=== PATIENT | female | born 1975 | race Caucasian/White ===

== ENCOUNTER 2017-11-25 18:25 | Inpatient (IN) | payer MEDICAID ==
[2017-11-25 20:25] LABS: BASO % 0.2 % (0.0-1.0); EOS % 0.1 % (0.0-3.0); IMMATURE GRANULOCYTE % 0.5 % (0-3.0); LYMPH # 1.5 10^3/uL (1.5-4.5); LYMPH % 8.8 % (24.0-44.0); MEAN CORPUSCULAR HEMOGLOBIN 28.6 pg (27.0-33.0); MEAN CORPUSCULAR HGB CONC 33.3 g/dl (32.0-36.5); MEAN CORPUSCULAR VOLUME 85.7 fl (80.0-96.0); MONO # 0.6 10^3/uL (0.0-0.8); MONO % 3.8 % (0.0-5.0); NEUTROPHILS # 14.5 10^3/uL (1.8-7.7); NEUTROPHILS % 86.6 % (36.0-66.0); PLATELET COUNT, AUTOMATED 357 10^3/uL (150-450); RED BLOOD COUNT 5.25 10^6/uL (4.00-5.40); RED CELL DISTRIBUTION WIDTH 14.1 % (11.5-14.5); WHITE BLOOD COUNT 16.7 10^3/uL (4.0-10.0)
[2017-11-25 20:27] LABS: VENOUS BASE EXCESS -7.1 (-2.0-2.0); VENOUS HCO3 16.8 MEQ/L (23.0-27.0); VENOUS O2 SATURATION 90.9 % (60.0-80.0); VENOUS PARTIAL PRESSURE CO2 30.2 mmHg (38.0-50.0); VENOUS PARTIAL PRESSURE O2 60.4 mmHg (30.0-50.0); VENOUS PH 7.364 UNITS (7.330-7.430); VENOUS STANDARD HCO3 18.7 MEQ/L; VENOUS TOTAL CO2 17.8 MEQ/L (24.0-28.0)
[2017-11-25] MEDS: NS 1,000 ML IV (20:53)
[2017-11-25 20:56] LABS: ESTIMATED AVERAGE GLUCOSE 209 MG/DL (60-110); HEMOGLOBIN A1c 8.9 %
[2017-11-25] MEDS: oxyBUTYnin *DITROPAN XL* 5 MG TABCR PO (21:00)
[2017-11-25 21:56] LABS: VENOUS HCO3 18.5 MEQ/L (23.0-27.0); VENOUS O2 SATURATION 84.8 % (60.0-80.0); VENOUS PARTIAL PRESSURE CO2 33.8 mmHg (38.0-50.0); VENOUS PARTIAL PRESSURE O2 49.6 mmHg (30.0-50.0); VENOUS PH 7.357 UNITS (7.330-7.430); VENOUS STANDARD HCO3 19.4 MEQ/L; VENOUS TOTAL CO2 19.6 MEQ/L (24.0-28.0)
[2017-11-25 22:20] LABS: ALBUMIN 3.9 GM/DL (3.2-5.2); ALBUMIN/GLOBULIN RATIO 1.08 (1.00-1.93); ALKALINE PHOSPHATASE 127 U/L (45-117); ALT/SGPT 18 U/L (12-78); ANION GAP 16 MEQ/L (8-16); AST/SGOT 19 U/L (7-37); BILIRUBIN,DIRECT 0.1 MG/DL (0.0-0.2); BILIRUBIN,TOTAL 0.4 MG/DL (0.2-1.0); BLOOD UREA NITROGEN 38 MG/DL (7-18); CALCIUM LEVEL 8.9 MG/DL (8.5-10.1); CARBON DIOXIDE LEVEL 20 MEQ/L (21-32); CHLORIDE LEVEL 102 MEQ/L (98-107); CREATININE FOR GFR 1.28 MG/DL (0.55-1.30); GLOMERULAR FILTRATION RATE 48.7 (>58); GLUCOSE, FASTING 201 MG/DL (70-100); LIPASE 35 U/L (73-393); MAGNESIUM LEVEL 2.3 MG/DL (1.8-2.4); POTASSIUM SERUM 4.3 MEQ/L (3.5-5.1); SODIUM LEVEL 138 MEQ/L (136-145); TOTAL PROTEIN 7.5 GM/DL (6.4-8.2)
[2017-11-25 22:34] LABS: ACETONE/KETONE > 46.00 MG/DL (<2.81)
[2017-11-25 23:11] LABS: KETONE, URINE AUTO RFX 2+ mg/dL (NEGATIVE); LEUKOCYTE ESTERASE UR AUTO RFX NEGATIVE (NEGATIVE); MUCUS, URINE RFX SMALL (NEGATIVE); NITRITE, URINE AUTO RFX NEGATIVE (NEGATIVE); RBC, URINE AUTO RFX 1 /HPF (0-3); SPECIFIC GRAVITY UR AUTO RFX 1.018 (1.002-1.035); SQUAM EPITHELIAL CELL UR AURFX 3 /HPF (0-6); WBC, URINE AUTO RFX 4 /HPF (0-3)
[2017-11-25] MEDS ORDERED: PROMETHAZINE INJ 25 MG/ML VIAL (J2550) IV (23:30)
[2017-11-26] MEDS: ONDANSETRON 4 MG ORAL DISINTEGRATING TAB (Q0162 PER 1MG) PO (00:21)
[2017-11-26 00:38] LABS: BEDSIDE GLUCOSE 469 MG/DL (70-105)
[2017-11-26] MEDS ORDERED: ONDANSETRON 4MG/2ML VIAL (J2405) IV (01:45)
[2017-11-26] MEDS ORDERED: DEXTROSE 50% 50 ML SYRINGE IV (01:45)
[2017-11-26] MEDS ORDERED: NS 1,000 ML IV (01:45)
[2017-11-26] MEDS ORDERED: GLUCAGON FOR INJ 1 MG VIAL (J1610) SC (01:45)
[2017-11-26] MEDS ORDERED: GLUCOSE 4 GM CHEW TABLET PO (01:45)
[2017-11-26] MEDS ORDERED: CARISOPRODOL 350 MG TAB PO (01:45)
[2017-11-26] MEDS: HumuLIN R (REGULAR) INSULIN (NovoLIN R) **100U/ML** PER UNIT SC (02:37)
[2017-11-26] MEDS: NS 1,000 ML IV ×2 (02:45→09:21)
[2017-11-26 02:46] LABS: C REACTIVE PROTEIN QUANTITATIV 5.03 MG/DL (0.00-0.30)
[2017-11-26] MEDS: METOCLOPRAMIDE INJ 10MG/2ML VIAL (J2765) IV (03:38)
[2017-11-26 05:57] LABS: BEDSIDE GLUCOSE 408 MG/DL (70-105)
[2017-11-26] MEDS: HEPARIN SOD (PORCINE) 5000 UNITS/ML VIAL SC (06:00)
[2017-11-26] MEDS: LEVOTHYROXINE 75MCG TABLET (0.075MG) PO (06:04)
[2017-11-26] MEDS: HumaLOG INSULIN (NovoLOG) PER UNIT SC (06:05)
[2017-11-26 06:25] LABS: BASO % 0.1 % (0.0-1.0); HEMATOCRIT 43.2 % (36.0-47.0); HEMOGLOBIN 13.8 g/dl (12.0-15.5); IMMATURE GRANULOCYTE % 0.5 % (0-3.0); LYMPH # 0.9 10^3/uL (1.5-4.5); LYMPH % 4.6 % (24.0-44.0); MEAN CORPUSCULAR HEMOGLOBIN 28.5 pg (27.0-33.0); MEAN CORPUSCULAR HGB CONC 31.9 g/dl (32.0-36.5); MEAN CORPUSCULAR VOLUME 89.3 fl (80.0-96.0); MONO # 0.3 10^3/uL (0.0-0.8); MONO % 1.3 % (0.0-5.0); NEUTROPHILS # 18.8 10^3/uL (1.8-7.7); NEUTROPHILS % 93.5 % (36.0-66.0); PLATELET COUNT, AUTOMATED 347 10^3/uL (150-450); RED BLOOD COUNT 4.84 10^6/uL (4.00-5.40); RED CELL DISTRIBUTION WIDTH 14.4 % (11.5-14.5); WHITE BLOOD COUNT 20.1 10^3/uL (4.0-10.0)
[2017-11-26 06:55] LABS: LIPASE 40 U/L (73-393)
[2017-11-26 07:00] LABS: ALBUMIN 3.9 GM/DL (3.2-5.2); ALBUMIN/GLOBULIN RATIO 0.87 (1.00-1.93); ALKALINE PHOSPHATASE 140 U/L (45-117); ALT/SGPT 20 U/L (12-78); ANION GAP 20 MEQ/L (8-16); AST/SGOT 21 U/L (7-37); BILIRUBIN,TOTAL 0.4 MG/DL (0.2-1.0); BLOOD UREA NITROGEN 31 MG/DL (7-18); CALCIUM LEVEL 8.6 MG/DL (8.5-10.1); CARBON DIOXIDE LEVEL 13 MEQ/L (21-32); CHLORIDE LEVEL 101 MEQ/L (98-107); CHOLESTEROL LEVEL 185 MG/DL (<200); CHOLESTEROL RISK RATIO 5.138 (<5); CREATININE FOR GFR 1.33 MG/DL (0.55-1.30); GLOMERULAR FILTRATION RATE 46.6 (>58); GLUCOSE, FASTING 374 MG/DL (70-100); HDL CHOLESTEROL 36 MG/DL (>40); LDL CHOLESTEROL 99.2 MG/DL (<100); MAGNESIUM LEVEL 2.2 MG/DL (1.8-2.4); NON-HDL-C 149 MG/DL; POTASSIUM SERUM 4.3 MEQ/L (3.5-5.1); SODIUM LEVEL 134 MEQ/L (136-145); TOTAL PROTEIN 8.4 GM/DL (6.4-8.2); TRIGLYCERIDES LEVEL 249 MG/DL (<150)
[2017-11-26 07:01] LABS: LACTIC ACID SEPSIS PROTOCOL 1.3 MMOL/L (0.4-2.0)
[2017-11-26 07:01] LABS: CPK CREATINE PHOSPHOKINASE 127 U/L (26-192); TROPONIN I 0.16 NG/ML (< 0.10)
[2017-11-26 07:02] LABS: CK-MB VALUE MASS 3.3 NG/ML (<3.6); MB/CK RELATIVE INDEX 2.59 (< OR =4)
[2017-11-26 07:07] LABS: ACETONE/KETONE > 46.00 MG/DL (<2.81)
[2017-11-26] MEDS ORDERED: HumaLOG INSULIN (NovoLOG) PER UNIT SC ×3 (07:30→12:00)
[2017-11-26] MEDS: OMEPRAZOLE 20 MG CAP PO (08:29)
[2017-11-26] MEDS ORDERED: INSULIN HUMAN REGULAR 100 UNITS in NS 99 ML IV (08:43)
[2017-11-26] MEDS ORDERED: INSULIN IV RATE CHANGE DOCUMENTATION ML/HR XX (08:45)
[2017-11-26] MEDS ORDERED: D5W 1,000 ML IV (08:46)
[2017-11-26] MEDS ORDERED: HumuLIN R (REGULAR) INSULIN (NovoLIN R) **100U/ML** PER UNIT IV (09:00)
[2017-11-26 09:22] LABS: BEDSIDE GLUCOSE 323 MG/DL (70-105)
[2017-11-26 09:35] LABS: ABG BASE EXCESS -9.9 (-2.0-2.0); ABG HCO3 13.6 MEQ/L (22.0-26.0); ABG O2 SATURATION 98.8 % (95.0-99.0); ABG PARTIAL PRESSURE CO2 24.3 mmHg (35.0-45.0); ABG PARTIAL PRESSURE O2 140.4 mmHg (75.0-100.0); ABG STANDARD HCO3 16.6 MEQ/L (22.0-26.0); ABG TOTAL CO2 14.4 MEQ/L (22.0-29.0); ABG pH (ARTERIAL) 7.366 UNITS (7.350-7.450)
[2017-11-26 09:43] LABS: ESTIMATED AVERAGE GLUCOSE 229 MG/DL (60-110); HEMOGLOBIN A1c 9.6 %
[2017-11-26 09:45] LABS: ANION GAP 16 MEQ/L (8-16); BLOOD UREA NITROGEN 27 MG/DL (7-18); CALCIUM LEVEL 8.6 MG/DL (8.5-10.1); CARBON DIOXIDE LEVEL 17 MEQ/L (21-32); CHLORIDE LEVEL 103 MEQ/L (98-107); CREATININE FOR GFR 1.09 MG/DL (0.55-1.30); GLOMERULAR FILTRATION RATE 58.6 (>58); GLUCOSE, FASTING 309 MG/DL (70-100); PHOSPHORUS LEVEL 2.9 MG/DL (2.5-4.9); POTASSIUM SERUM 4.4 MEQ/L (3.5-5.1); SODIUM LEVEL 136 MEQ/L (136-145)
[2017-11-26] MEDS: ENOXAPARIN 40 MG/0.4 ML SYRINGE (J1650) SC (10:01)
[2017-11-26] MEDS: HumuLIN R (REGULAR) INSULIN (NovoLIN R) **100U/ML** PER UNIT IV (10:02)
[2017-11-26] MEDS: INSULIN HUMAN REGULAR 100 UNITS in NS 99 ML IV (10:03)
[2017-11-26 10:05] LABS: BEDSIDE GLUCOSE 349 MG/DL (70-105)
[2017-11-26] MEDS: INSULIN IV RATE CHANGE DOCUMENTATION ML/HR XX ×3 (11:00→13:21)
[2017-11-26 11:08] LABS: BEDSIDE GLUCOSE 294 MG/DL (70-105)
[2017-11-26 11:15] LABS: ANION GAP 17 MEQ/L (8-16); BLOOD UREA NITROGEN 25 MG/DL (7-18); CALCIUM LEVEL 8.7 MG/DL (8.5-10.1); CARBON DIOXIDE LEVEL 16 MEQ/L (21-32); CHLORIDE LEVEL 105 MEQ/L (98-107); CREATININE FOR GFR 1.11 MG/DL (0.55-1.30); GLOMERULAR FILTRATION RATE 57.4 (>58); GLUCOSE, FASTING 330 MG/DL (70-100); POTASSIUM SERUM 4.1 MEQ/L (3.5-5.1); SODIUM LEVEL 138 MEQ/L (136-145)
[2017-11-26 11:19] LABS: ANION GAP 17 MEQ/L (8-16); BLOOD UREA NITROGEN 25 MG/DL (7-18); CALCIUM LEVEL 8.5 MG/DL (8.5-10.1); CARBON DIOXIDE LEVEL 16 MEQ/L (21-32); CHLORIDE LEVEL 104 MEQ/L (98-107); CPK CREATINE PHOSPHOKINASE 114 U/L (26-192); CREATININE FOR GFR 1.13 MG/DL (0.55-1.30); GLOMERULAR FILTRATION RATE 56.2 (>58); GLUCOSE, FASTING 323 MG/DL (70-100); MB/CK RELATIVE INDEX 2.63 (< OR =4); SODIUM LEVEL 137 MEQ/L (136-145); TROPONIN I 0.16 NG/ML (< 0.10)
[2017-11-26] MEDS: ACETAMINOPHEN TAB 650MG DOSE (2X325MG) PO (12:06)
[2017-11-26 12:07] LABS: BEDSIDE GLUCOSE 302 MG/DL (70-105)
[2017-11-26 13:16] LABS: BEDSIDE GLUCOSE 264 MG/DL (70-105)
[2017-11-26 13:58] LABS: BEDSIDE GLUCOSE 251 MG/DL (70-105)
[2017-11-26 14:25] LABS: ANION GAP 13 MEQ/L (8-16); BLOOD UREA NITROGEN 19 MG/DL (7-18); CALCIUM LEVEL 8.9 MG/DL (8.5-10.1); CARBON DIOXIDE LEVEL 19 MEQ/L (21-32); CHLORIDE LEVEL 106 MEQ/L (98-107); CREATININE FOR GFR 0.99 MG/DL (0.55-1.30); GLOMERULAR FILTRATION RATE > 60.0 (>58); GLUCOSE, FASTING 256 MG/DL (70-100); POTASSIUM SERUM 4.2 MEQ/L (3.5-5.1); SODIUM LEVEL 138 MEQ/L (136-145)
[2017-11-26] MEDS ORDERED: LEVEMIR (INSULIN DETEMIR) 1 UNITS/0.01ML SC (21:00)
[2017-11-27] MEDS ORDERED: PANTOPRAZOLE 40MG INJ (PROTONIX) (C9113) IV (09:00)
[2017-11-28 15:01] LABS: BEDSIDE GLUCOSE 177 MG/DL (70-105)
== END 2017-11-26 14:39 | disposition left against medical advice (07) | DRG 420 ==
LOC: M ED INP 18:26 → M MSPAV 11-26 03:23 → M ED 18:25 → M ICU 11-26 09:00
PROVIDERS: Internal Medicine
DX: E10.10 Type 1 diabetes mellitus with ketoacidosis without coma (principal); E10.65 Type 1 diabetes mellitus with hyperglycemia; M54.5 Low back pain; E03.9 Hypothyroidism, unspecified; K21.9 Gastro-esophageal reflux disease without esophagitis; Z88.5 Allergy status to narcotic agent; Z88.0 Allergy status to penicillin; Z91.040 Latex allergy status; N39.3 Stress incontinence (female) (male)

== ENCOUNTER 2017-11-28 12:41 | Emergency (ER) | payer MEDICAID, OTHER ==
[2017-11-28 14:01] LABS: BASO % 0.4 % (0.0-1.0); EOS % 0.3 % (0.0-3.0); HEMATOCRIT 42.6 % (36.0-47.0); HEMOGLOBIN 14.2 g/dl (12.0-15.5); IMMATURE GRANULOCYTE % 0.3 % (0-3.0); LYMPH # 1.9 10^3/uL (1.5-4.5); LYMPH % 23.9 % (24.0-44.0); MEAN CORPUSCULAR HEMOGLOBIN 28.5 pg (27.0-33.0); MEAN CORPUSCULAR HGB CONC 33.3 g/dl (32.0-36.5); MEAN CORPUSCULAR VOLUME 85.4 fl (80.0-96.0); MONO # 0.4 10^3/uL (0.0-0.8); MONO % 5.4 % (0.0-5.0); NEUTROPHILS # 5.5 10^3/uL (1.8-7.7); NEUTROPHILS % 69.7 % (36.0-66.0); PLATELET COUNT, AUTOMATED 327 10^3/uL (150-450); RED BLOOD COUNT 4.99 10^6/uL (4.00-5.40); WHITE BLOOD COUNT 7.9 10^3/uL (4.0-10.0)
[2017-11-28 14:11] LABS: ETHYL ALCOHOL (ETHANOL) 0.003 % (0.000-0.010)
[2017-11-28 14:11] LABS: ANION GAP 10 MEQ/L (8-16); BLOOD UREA NITROGEN 20 MG/DL (7-18); CALCIUM LEVEL 9.7 MG/DL (8.5-10.1); CARBON DIOXIDE LEVEL 24 MEQ/L (21-32); CHLORIDE LEVEL 97 MEQ/L (98-107); CREATININE FOR GFR 1.04 MG/DL (0.55-1.30); GLOMERULAR FILTRATION RATE > 60.0 (>58); GLUCOSE, FASTING 367 MG/DL (70-100); POTASSIUM SERUM 3.7 MEQ/L (3.5-5.1); SODIUM LEVEL 131 MEQ/L (136-145)
[2017-11-28] MEDS: NS 1,000 ML IV ×2 (14:16)
[2017-11-28 14:30] LABS: VENOUS BASE EXCESS -2.9 (-2.0-2.0); VENOUS HCO3 20.2 MEQ/L (23.0-27.0); VENOUS O2 SATURATION 93.1 % (60.0-80.0); VENOUS PARTIAL PRESSURE CO2 31.1 mmHg (38.0-50.0); VENOUS PARTIAL PRESSURE O2 63.9 mmHg (30.0-50.0); VENOUS PH 7.431 UNITS (7.330-7.430); VENOUS STANDARD HCO3 21.9 MEQ/L; VENOUS TOTAL CO2 21.2 MEQ/L (24.0-28.0)
[2017-11-28 14:32] LABS: ESTIMATED AVERAGE GLUCOSE 220 MG/DL (60-110); HEMOGLOBIN A1c 9.3 %
[2017-11-28 14:49] LABS: KETONE, URINE AUTO RFX TRACE mg/dL (NEGATIVE); LEUKOCYTE ESTERASE UR AUTO RFX NEGATIVE (NEGATIVE); NITRITE, URINE AUTO RFX NEGATIVE (NEGATIVE); RBC, URINE AUTO RFX 1 /HPF (0-3); SPECIFIC GRAVITY UR AUTO RFX 1.012 (1.002-1.035); SQUAM EPITHELIAL CELL UR AURFX 2 /HPF (0-6); WBC, URINE AUTO RFX 1 /HPF (0-3)
[2017-11-28 15:02] LABS: BEDSIDE GLUCOSE 379 MG/DL (70-105)
[2017-11-28] MEDS: INSULIN HUMAN REGULAR 100 UNITS in NS 99 ML IV (15:06)
[2017-11-28] MEDS: KCL 40MEQ in NS 1000ML 1,000 ML IV (15:06)
[2017-11-28 15:12] LABS: BEDSIDE GLUCOSE 191 MG/DL (70-105)
[2017-11-28] MEDS ORDERED: INSULIN IV RATE CHANGE DOCUMENTATION ML/HR XX ×2 (15:15)
[2017-11-28 15:47] LABS: CK-MB VALUE MASS 1.4 NG/ML (<3.6); CPK CREATINE PHOSPHOKINASE 71 U/L (26-192); MB/CK RELATIVE INDEX 1.97 (< OR =4); TROPONIN I 0.04 NG/ML (< 0.10)
== END 2017-11-28 16:01 | disposition home or self-care (01) ==
LOC: M ED 12:41
DX: E11.65 Type 2 diabetes mellitus with hyperglycemia (principal); G89.29 Other chronic pain; E07.9 Disorder of thyroid, unspecified; Z72.0 Tobacco use; Z96.41 Presence of insulin pump (external) (internal); Z79.899 Other long term (current) drug therapy; Z91.040 Latex allergy status; Z88.5 Allergy status to narcotic agent; Z88.0 Allergy status to penicillin
CPT/HCPCS: 80320; G0480

== ENCOUNTER → 2018-01-30 | Outpatient (REF) | payer OTHER ==
[2018-01-31 12:45] LABS: APPEARANCE, URINE CLEAR (CLEAR); BACTERIA, URINE AUTO NEGATIVE (NEGATIVE); BILIRUBIN, URINE AUTO NEGATIVE (NEGATIVE); BLOOD, URINE BLOOD NEGATIVE (NEGATIVE); COLOR, URINE STRAW (YELLOW); GLUCOSE, URINE (UA) AUTO 1+ mg/dL (NEGATIVE); KETONE, URINE AUTO NEGATIVE (NEGATIVE); LEUKOCYTE ESTERASE, URINE AUTO NEGATIVE (NEGATIVE); MUCUS, URINE SMALL (NEGATIVE); NITRITE, URINE AUTO NEGATIVE (NEGATIVE); PROTEIN, URINE AUTO NEGATIVE (NEGATIVE); RBC, URINE AUTO 2 /HPF (0-3); SPECIFIC GRAVITY URINE AUTO 1.005 (1.002-1.035); SQUAMOUS EPITHELIAL CELL UR AU 1 /HPF (0-6); UROBILINOGEN, URINE AUTO 0.2 mg/dL (0.0-2.0); WBC, URINE AUTO 1 /HPF (0-3)
[2018-01-31 15:00] LABS: ALBUMIN 3.8 GM/DL (3.2-5.2); ALBUMIN/GLOBULIN RATIO 1.19 (1.00-1.93); ALKALINE PHOSPHATASE 104 U/L (45-117); ALT/SGPT 18 U/L (12-78); ANION GAP 9 MEQ/L (8-16); AST/SGOT 20 U/L (7-37); BILIRUBIN,TOTAL 0.2 MG/DL (0.2-1.0); BLOOD UREA NITROGEN 11 MG/DL (7-18); CALCIUM LEVEL 9.3 MG/DL (8.5-10.1); CARBON DIOXIDE LEVEL 26 MEQ/L (21-32); CHLORIDE LEVEL 106 MEQ/L (98-107); CREATININE FOR GFR 0.66 MG/DL (0.55-1.30); GLOMERULAR FILTRATION RATE > 60.0 (>58); GLUCOSE, FASTING 143 MG/DL (70-100); POTASSIUM SERUM 4.1 MEQ/L (3.5-5.1); SODIUM LEVEL 141 MEQ/L (136-145)
== END ==
LOC: M SFHCPLAZ 12:11
DX: I10 Essential (primary) hypertension (principal); R00.2 Palpitations

== ENCOUNTER → 2018-01-31 | Outpatient (REF) | payer OTHER | LOC: M SFHCPLAZ 10:45 | DX: I10 Essential (primary) hypertension (principal); R00.2 Palpitations ==

== ENCOUNTER → 2018-02-06 | Outpatient (REF) | payer OTHER ==
[2018-02-06 17:31] LABS: FREE T4 0.71 NG/DL (0.76-1.46)
[2018-02-06 17:31] LABS: FREE T3 3.1 PG/ML (2.2-4.0)
== END ==
LOC: M SFHCPLAZ 10:13
DX: R00.2 Palpitations (principal)

== ENCOUNTER → 2018-02-26 | Outpatient (REF) | payer OTHER ==
[2018-02-26 16:47] LABS: ESTIMATED AVERAGE GLUCOSE 200 MG/DL (60-110); HEMOGLOBIN A1c 8.6 %
[2018-02-26 16:50] LABS: MALB URINE SIEMENS 28.1 MG/L
[2018-02-26 16:56] LABS: MAU/CREAT RATIO 57.3 MCG/MG (0.0-30.0)
== END ==
LOC: M SFHCPLAZ 14:10
DX: E10.8 Type 1 diabetes mellitus with unspecified complications (principal)
CPT/HCPCS: 83036

== ENCOUNTER → 2018-06-11 | Outpatient (REF) | payer OTHER ==
[~2018-06-11] MED LIST: CARI1TAB7 PO; CELE1CAP9 PO; DITR1TAB2 PO; LEVO-84 PO; LIOT5TAB PO; OMEP40CA2 PO; SYNT50TA PO; insulin pump SQ
[2018-06-11 16:30] LABS: HEMOGLOBIN A1c 11.7 %
== END ==
LOC: M SFHCPLAZ 14:09
PROVIDERS: ATTEND Family Medicine
DX: E03.8 Other specified hypothyroidism (principal); E10.8 Type 1 diabetes mellitus with unspecified complications

== ENCOUNTER → 2018-09-18 | Outpatient (CLI) | payer OTHER ==
[2018-09-18 10:50] LABS: HEMOGLOBIN A1c 13.1 %
== END ==
LOC: M LAB 09:39
PROVIDERS: ATTEND Student in an Organized Health Care Education/Training Program
DX: E10.8 Type 1 diabetes mellitus with unspecified complications (principal)

== ENCOUNTER → 2018-11-15 | Outpatient (CLI) | payer OTHER ==
[2018-11-15 07:58] LABS: BLOOD UREA NITROGEN 25 MG/DL (7-18); CALCIUM LEVEL 9.2 MG/DL (8.5-10.1); CARBON DIOXIDE LEVEL 24 MEQ/L (21-32); CHLORIDE LEVEL 105 MEQ/L (98-107); CREATININE FOR GFR 1.01 MG/DL (0.55-1.30); GLOMERULAR FILTRATION RATE > 60.0 (>58); GLUCOSE, FASTING 144 MG/DL (70-100); POTASSIUM SERUM 4.1 MEQ/L (3.5-5.1); SODIUM LEVEL 138 MEQ/L (136-145)
--- NOTE | 2018-11-15 11:19 | ECGEPIP ---
[facility] Test Date: 2018-11-15 Pat Name: RISHI ANGEL Department: Room: - Gender: Female Shank Boner: ISHAN : 1975 Requested By: OBI ROBB Order Number: [id number] Reading MD: Macy Haddad Measurements Intervals [place] Rate: 81 P: 61 LA: 124 QRS: QRSD: 86 T: 55 QT: 367 QTc: 428 Interpretive Statements SINUS RHYTHM POOR R WAVE PROGRESSION NO CHANGE COMPARED TO 11/26/17 Electronically Signed on 11-15-2018 11:19:51 EDT by Macy Haddad
== END ==
LOC: M LAB 07:12
PROVIDERS: ATTEND Orthopaedic Surgery Sports Medicine
DX: Z01.812 Encounter for preprocedural laboratory examination (principal); M75.01 Adhesive capsulitis of right shoulder

== ENCOUNTER → 2018-12-11 | Outpatient (RCR) | payer OTHER ==
[~2018-12-11] MED LIST changes: +ADME100I SQ; +ALEV1TAB PO; +CHLO125TA PO; +LEVO200T4 PO; +LISI-538 PO; +OXYB5TAB10 PO; +RANI150C PO
== END ==
LOC: M PT 12-09 11:03
PROVIDERS: ATTEND Orthopaedic Surgery Sports Medicine
DX: Z47.89 Encounter for other orthopedic aftercare (principal); Z98.890 Other specified postprocedural states; M25.511 Pain in right shoulder

== ENCOUNTER 2018-12-14 13:40 | Inpatient (IN) | payer OTHER ==
[2018-12-14] VITALS (11 sets, daily range): BP systolic 74–87; BP diastolic 45–62
[~2018-12-14] VITALS: Ht 165.1 cm; Wt 73.9 kg
[~2018-12-14 13:40] MED LIST changes: -ADME100I SQ; -ALEV1TAB PO; -CHLO125TA PO; -LEVO200T4 PO; -LISI-538 PO; -OXYB5TAB10 PO; -RANI150C PO
[2018-12-14] MEDS ORDERED: ONDANSETRON 4MG/2ML VIAL (J2405) As Ordered ONE (13:58)
[2018-12-14] MEDS ORDERED: NS 1,000 ML IV ONE ×4 (14:00→15:00)
[2018-12-14 14:14] LABS: BASO % 0.2 % (0.0-1.0); HEMATOCRIT 36.3 % (36.0-47.0); HEMOGLOBIN 10.9 g/dl (12.0-15.5); LYMPH % 5.1 % (24.0-44.0); MEAN CORPUSCULAR HEMOGLOBIN 29.7 pg (27.0-33.0); MEAN CORPUSCULAR VOLUME 98.9 fl (80.0-96.0); MONO # 1.1 10^3/uL (0.0-0.8); MONO % 5.5 % (0.0-5.0); NEUTROPHILS # 17.5 10^3/uL (1.8-7.7); NEUTROPHILS % 88.3 % (36.0-66.0); PLATELET COUNT, AUTOMATED 431 10^3/uL (150-450); RED BLOOD COUNT 3.67 10^6/uL (4.00-5.40); VENOUS BASE EXCESS -22.6 (-2.0-2.0); VENOUS HCO3 6.8 MEQ/L (23.0-27.0); VENOUS O2 SATURATION 91.2 % (60.0-80.0); VENOUS PARTIAL PRESSURE CO2 26.4 mmHg (38.0-50.0); VENOUS PARTIAL PRESSURE O2 76.7 mmHg (30.0-50.0); VENOUS STANDARD HCO3 8.1 MEQ/L; VENOUS TOTAL CO2 7.6 MEQ/L (24.0-28.0); WHITE BLOOD COUNT 19.9 10^3/uL (4.0-10.0)
[2018-12-14] MEDS ORDERED: ONDANSETRON 4MG/2ML VIAL (J2405) IV ONE (14:15)
[2018-12-14 14:30] LABS: ABG BASE EXCESS -21.6 (-2.0-2.0); ABG HCO3 5.8 MEQ/L (22.0-26.0); ABG O2 SATURATION 98.9 % (95.0-99.0); ABG PARTIAL PRESSURE O2 205.4 mmHg (75.0-100.0); ABG STANDARD HCO3 8.7 MEQ/L (22.0-26.0); ABG TOTAL CO2 6.4 MEQ/L (22.0-29.0)
[2018-12-14] MEDS ORDERED: INSULIN IV RATE CHANGE DOCUMENTATION ML/HR XX SCH (14:30)
[2018-12-14] MEDS ORDERED: PANTOPRAZOLE 40MG INJ (PROTONIX) (C9113) IV ONE (14:30)
[2018-12-14] MEDS ORDERED: INSULIN HUMAN REGULAR 100 UNITS in NS 99 ML IV SCH (14:30)
[2018-12-14 14:35] LABS: ABG PARTIAL PRESSURE CO2 18.3 mmHg (35.0-45.0); ABG pH (ARTERIAL) 7.119 UNITS (7.350-7.450)
[2018-12-14 14:36] LABS: HEMOGLOBIN A1c 11.5 %
[2018-12-14] MEDS ORDERED: OXYB5TAB10 PO (14:54)
[2018-12-14] MEDS ORDERED: LEVO200T4 PO (14:54)
[2018-12-14] MEDS ORDERED: LISI-538 PO (14:54)
[2018-12-14] MEDS ORDERED: ALEV1TAB PO (14:54)
[2018-12-14] MEDS ORDERED: ADME100I SQ (14:54)
[2018-12-14] MEDS ORDERED: CHLO125TA PO (14:54)
[2018-12-14] MEDS ORDERED: RANI150C PO (14:54)
[2018-12-14 15:00] LABS: ALBUMIN 3.6 GM/DL (3.2-5.2); BILIRUBIN,DIRECT 0.2 MG/DL (0.0-0.2); BILIRUBIN,TOTAL 0.6 MG/DL (0.2-1.0); MAGNESIUM LEVEL 2.7 MG/DL (1.8-2.4); TOTAL PROTEIN 6.7 GM/DL (6.4-8.2)
[2018-12-14 15:01] LABS: PHOSPHORUS LEVEL 8.6 MG/DL (2.5-4.9)
--- NOTE | 2018-12-14 15:27 | REP ---
Clinical: Diabetic ketoacidosis. Comparison: 11/25/2017. Findings: Subtle bibasilar air space disease cannot be excluded and should be correlated clinically. Mediastinum and cardiac silhouette are normal. No effusion. No pneumothorax. Skeletal structures intact. Impression: Subtle bibasilar air space disease suggested. Electronically Signed by Enrique Krishnamurthy MD 12/14/2018 03:19 P
--- NOTE | 2018-12-14 15:36 | ECGEPIP ---
[facility] - ED Test Date: 2018-12-14 Pat Name: RISHI ANGEL Department: Room: - Gender: Female [employer]: THEO : 1975 Requested By: Bibiana Patel Order Number: [id number] Reading MD: Bibiana Patel Measurements Intervals [place] Rate: 114 P: 69 NE: 162 QRS: 35 QRSD: 94 T: 50 QT: 337 QTc: 465 Interpretive Statements SINUS TACHYCARDIA ABNORMAL RHYTHM ECG INCREASED RATE 11/15/18 Electronically Signed on 12-14-2018 15:35:37 EDT by Bibiana Patel
[2018-12-14 16:09] LABS: VENOUS BASE EXCESS -26.3 (-2.0-2.0); VENOUS O2 SATURATION 97.3 % (60.0-80.0); VENOUS PARTIAL PRESSURE O2 134.8 mmHg (30.0-50.0); VENOUS PH 6.916 UNITS (7.330-7.430); VENOUS STANDARD HCO3 5.9 MEQ/L; VENOUS TOTAL CO2 5.7 MEQ/L (24.0-28.0)
[2018-12-14 16:40] LABS: CALCIUM LEVEL 7.4 MG/DL (8.5-10.1); CREATININE FOR GFR 1.81 MG/DL (0.55-1.30); GLOMERULAR FILTRATION RATE 32.5 (>58); POTASSIUM SERUM 4.8 MEQ/L (3.5-5.1)
[2018-12-14] MEDS ORDERED: HumuLIN R (REGULAR) INSULIN (NovoLIN R) **100U/ML** PER UNIT IV STA (16:45)
[2018-12-14] MEDS: LEVOTHYROXINE 100MCG TABLET (0.1MG) PO SCH (17:18)
[2018-12-14] MEDS: ENOXAPARIN 40 MG/0.4 ML SYRINGE (J1650) SC SCH (17:18)
[2018-12-14] MEDS: INSULIN HUMAN REGULAR 100 UNITS in NS 99 ML IV SCH ×2 (18:40→22:06)
[2018-12-14 18:54] LABS: CALCIUM LEVEL 7.6 MG/DL (8.5-10.1); CREATININE FOR GFR 1.85 MG/DL (0.55-1.30); GLOMERULAR FILTRATION RATE 31.7 (>58); POTASSIUM SERUM 4.3 MEQ/L (3.5-5.1)
--- NOTE | 2018-12-14 18:59 | HPEPDOC ---
General Date of Admission Dec 14, 2018 at 15:19 Date of Service: Dec 14, 2018 Chief Complaint The patient is a 43-year-old female admitted with a reason for visit of DKA. History of Present Illness 43f with hx of type I dm and hypothyroid. Pt apparently had difficulty with her insulin pump and was planning to switch to subQ insulin after speaking to her doctor. She was waiting for him to call back and has not had insulin in about a day. Blood sugars have been reading very high and she began vomiting and became lethargic. History is obtained from as pt is obtunded. ROS UTO Home Medications Scheduled Chlorthalidone (Chlorthalidone) 25 Mg Tablet, 25 MG PO DAILY, (Reported) Insulin Lispro (Admelog) 100 Unit/1 Ml Vial, 1 DOSE SQ ASDIRECTED, (Reported) USES INSULIN PUMP Levothyroxine Sodium (Levothyroxine Sodium) 200 Mcg Tablet, 200 MCG PO DAILY, (Reported) Lisinopril (Lisinopril) 20 Mg Tablet, 20 MG PO BID, (Reported) Naproxen Sod/Diphenhydramine (Aleve Pm Caplet) 1 Each Tablet, 2 TAB PO QHS, (Reported) Oxybutynin Chloride (Oxybutynin Chloride) 5 Mg Tablet, 15 MG PO DAILY, (Reported) Ranitidine HCl (Ranitidine HCl) 150 Mg Capsule, 1 CAP PO QHS, (Reported) Allergies Coded Allergies: Penicillins (Verified Allergy, Unknown, facial swelling, 12/14/18) latex (Verified Allergy, Unknown, itching, 12/14/18) morphine (Verified Allergy, Unknown, facial swelling, 12/14/18) oxycodone (Verified Allergy, Unknown, rash/itching, 12/14/18) Past Medical History Medical History DM1, thyroid Family History Significant Family History: Noncontributory A-FIB/CHADSVASC A-FIB History Current/History of A-Fib/PAF?: No Current PO Anticoag Therapy: No Age/Risk Factor Scoring CHADSVASC: CHADSVASC Response (Comments) Value Age Risk Factor Age < 65 years old 0 Gender Risk Factor Female 1 Hx of CHF No 0 Hx of HTN No 0 Hx of Stroke/TIA/or VTE No 0 Hx of Diabetes Yes 1 Hx of Vascular Disease No 0 Total 2 Treatment Treatment ordered: NONE Reason Anticoagulant not given: Not indicated/[id number] Physical Examination General Exam: Positive: Moderate Distress; Negative: Alert Eye Exam: Positive: PERRLA, Conjunctiva & lids normal, EOMI; Negative: Sclera icteric ENT Exam: Positive: Atraumatic, Pharynx Normal; Negative: Mucous membr. moist/pink Neck Exam: Positive: Supple; Negative: JVD, thyromegaly Chest Exam: Positive: Clear to auscultation, Normal air movement Heart Exam: Positive: Tachycardic, Normal S1, Normal S2; Negative: Murmurs Abdomen Exam: Positive: Normal bowel sounds, Soft; Negative: Tenderness, Hepatospenomegaly Extremity Exam: Positive: Normal pulses; Negative: Clubbing, Cyanosis, Edema Skin Exam: Positive: Nl turgor and temperature; Negative: Breakdown, Lesion Neuro Exam: Positive: Normal Tone, Sensation Intact, Cranial Nerves 3-12 NL Psych Exam: Positive: Other (sleeping but arousable); Negative: Mental status NL Vital Signs Vital Signs Date Time Temp Pulse Resp B/P (MAP) Pulse Ox O2 Delivery O2 Flow Rate FiO2 12/14/18 18:30 120 22 80/44 (56) 96 12/14/18 13:49 97.5 Room Air Laboratory Data Labs 24H Laboratory Tests 2 12/14/18 14:04: Blood Gas Bicarbonate Standard 8.7L, Arterial Blood pH 7.119*L, Arterial Blood Partial Pressure CO2 18.3*L, Arterial Blood Partial Pressure O2 205.4H, Arterial Blood Total CO2 6.4L, Arterial Blood HCO3 5.8L, Arterial Blood Base Excess - 21.6L, Arterial Blood Oxygen Saturation 98.9 12/14/18 14:06: Blood Gas Bicarbonate Standard 8.1, Immature Granulocyte % (Auto) 0.9, White Blood Count 19.9H, Red Blood Count 3.67L, Hemoglobin 10.9L, Hematocrit 36.3, M leann Corpuscular Volume 98.9H, Mean Corpuscular Hemoglobin 29.7, Mean Corpuscular Hemoglobin Concent 30.0L, Red Cell Distribution Width 13.2, Platelet Count 431, Neutrophils (%) (Auto) 88.3H, Lymphocytes (%) (Auto) 5.1L, Monocytes (%) (Auto) 5.5H, Eosinophils (%) (Auto) 0.0, Basophils (%) (Auto) 0.2, Neutrophils # (Auto) 17.5H, Lymphocytes # (Auto) 1.0L, Monocytes # (Auto) 1.1H, Eosinophils # (Auto) 0.0, Basophils # (Auto) 0.0, Nucleated Red Blood Cells % (auto) 0.0, Venous Blood pH 7.030L, Venous Blood Partial Pressure CO2 26.4L, Venous Blood Partial Pressure O2 76.7H, Venous Blood Total Carbon Dioxide 7.6L, Venous Blood HCO3 6.8L, Venous Blood Oxygen Saturation 91.2H, Venous Blood Base Excess -22.6L, Estimated Mean Plasma Glucose 283H, Hemoglobin A1c 11.5, Osmolality 348H, Phosphorus Level 8.6H, Magnesium Level 2.7H, Aspartate Amino Transf (AST/SGOT) 15, Alanine Aminotransferase (ALT/SGPT) 19, Alkaline Phosphatase 159H, Total Bilirubin 0.6, Direct Bilirubin 0.2, Total Protein 6.7, Albumin 3.6, Albumin/Globulin Ratio 1.16, Lipase 49L, B-Hydroxybutyrate 40.00H 12/14/18 14:16: POC Glucose (Misc Panel) > 700*H, POC Sodium (Misc Panel) 118*L, POC Potassium (Misc Panel) 6.2*H, POC Chloride (Misc Panel) 88L, POC Total CO2 (Misc Panel) 9.0L, POC Blood Urea Nitrogen (Misc Panel 56H, POC Ionized Calcium (Misc Panel) 4.5, POC Creatinine (Misc Panel) 1.7H, POC Hematocrit (Misc Panel) 36.0L 12/14/18 14:19: POC Beta HCG, Quantitative 5.8 12/14/18 16:04: Blood Gas Bicarbonate Standard 5.9, Venous Blood pH 6.916L, Venous Blood Partial Pressure CO2 25.0L, Venous Blood Partial Pressure O2 134.8H, Venous Blood Total Carbon Dioxide 5.7L, Venous Blood HCO3 5.0L, Venous Blood Oxygen Saturation 97.3H, Venous Blood Base Excess -26.3L, Anion Gap 26H, Glomerular Filtration Rate 32.5L, Blood Urea Nitrogen 50H, Creatinine 1.81H, Sodium Level 131L, Potassium Level 4.8, Chloride Level 99, Carbon Dioxide Level 6L, Calcium Level 7.4L 8/3/19 17:54: Urine Color YELLOW, Urine Appearance HAZY, Urine pH 5.0, Urine Specific [place] 1.015, Urine Protein NEGATIVE, Urine Glucose (UA) 3+H, Urine Ketones 1+H, Urine Blood 2+H, Urine Nitrite NEGATIVE, Urine Bilirubin NEGATIVE, Urine Urobilinogen 0.2, Urine Leukocyte Esterase NEGATIVE, Urine WBC (Auto) 1, Urine RBC (Auto) 3, Urine Hyaline Casts (Auto) 0, Urine Bacteria (Auto) NEGATIVE, Urine Squamous Epithelial Cells 0, Urine Amorphous Sediment SMALLH, Urine Mucus (Auto) SMALL, Urine Yeast-Like Cells (Auto) MODERATEH, Urine Sperm (Auto) 12/14/18 18:12: CBC/BMP Laboratory Tests 12/14/18 14:06 Red Blood Count 3.67 L, Mean Corpuscular Volume 98.9 H, Mean Corpuscular Hemoglobin 29.7, Mean Corpuscular Hemoglobin Concent 30.0 L, Red Cell Distribution Width 13.2, Neutrophils (%) (Auto) 88.3 H, Lymphocytes (%) (Auto) 5.1 L, Monocytes (%) (Auto) 5.5 H, Eosinophils (%) (Auto) 0.0, Basophils (%) (Auto) 0.2, Neutrophils # (Auto) 17.5 H, Lymphocytes # (Auto) 1.0 L, Monocytes # (Auto) 1.1 H, Eosinophils # (Auto) 0.0, Basophils # (Auto) 0.0 12/14/18 16:04 Calcium Level 7.4 L Assessment/Plan 43f p/w dka admit to ICU received 4 liters of saline in ER fluids switched to 1/2ns with kcl on insulin drip sugar is coming down severe acidosis frequent chemistry's pancultured npo continue drip until gap closes convert to d5 1/2 ns with kcl when sugar is down to 200 hypothyroid stable continue synthroid Plan / VTE VTE Prophylaxis Ordered?: Yes MINERVA TINOCO MD Dec 14, 2018 18:59
[2018-12-14] MEDS: KCL 20MEQ IN 0.45NS 1000ML 1,000 ML IV SCH (19:08)
[2018-12-14] MEDS ORDERED: SODIUM BICARBONATE 8.4% INJ 50 ML SYRINGE IV STA (19:44)
[2018-12-14] MEDS ORDERED: FAMOTIDINE 20 MG TAB PO SCH (21:00)
[2018-12-14 21:32] LABS: ABG BASE EXCESS -14.7 (-2.0-2.0); ABG PARTIAL PRESSURE CO2 20.5 mmHg (35.0-45.0); ABG PARTIAL PRESSURE O2 153.3 mmHg (75.0-100.0); ABG STANDARD HCO3 12.8 MEQ/L (22.0-26.0); ABG TOTAL CO2 10.6 MEQ/L (22.0-29.0); ABG pH (ARTERIAL) 7.306 UNITS (7.350-7.450)
[2018-12-14] MEDS: INSULIN IV RATE CHANGE DOCUMENTATION ML/HR XX SCH (23:55)
[2018-12-15] VITALS (17 sets, daily range): BP systolic 74–142; BP diastolic 42–85
[2018-12-15] MEDS: KCL 20MEQ IN 0.45NS 1000ML 1,000 ML IV SCH
[2018-12-15 00:19] LABS: CALCIUM LEVEL 7.9 MG/DL (8.5-10.1); CREATININE FOR GFR 1.54 MG/DL (0.55-1.30); GLOMERULAR FILTRATION RATE 39.1 (>58)
[2018-12-15] MEDS: INSULIN IV RATE CHANGE DOCUMENTATION ML/HR XX SCH ×6 (02:08→07:00)
[2018-12-15] MEDS ORDERED: SODIUM CHLORIDE 0.9% 1000ML IV ONE (03:00)
[2018-12-15] MEDS ORDERED: NS 1,000 ML IV ONE (04:00)
[2018-12-15] MEDS: ACETAMINOPHEN 500 MG TAB PO PRN ×2 (04:03→12:35)
[2018-12-15] MEDS: KCL 20MEQ IN D5/0.45NS 1000ML 1,000 ML IV SCH ×2 (04:08→11:36)
[2018-12-15 04:40] LABS: BASO % 0.2 % (0.0-1.0); EOS % 0.1 % (0.0-3.0); HEMATOCRIT 29.5 % (36.0-47.0); HEMOGLOBIN 9.7 g/dl (12.0-15.5); LYMPH # 1.7 10^3/uL (1.5-4.5); LYMPH % 11.8 % (24.0-44.0); MEAN CORPUSCULAR HEMOGLOBIN 28.5 pg (27.0-33.0); MEAN CORPUSCULAR HGB CONC 32.9 g/dl (32.0-36.5); MEAN CORPUSCULAR VOLUME 86.8 fl (80.0-96.0); MONO # 1.2 10^3/uL (0.0-0.8); MONO % 8.5 % (0.0-5.0); NEUTROPHILS # 11.5 10^3/uL (1.8-7.7); NEUTROPHILS % 78.9 % (36.0-66.0); PLATELET COUNT, AUTOMATED 345 10^3/uL (150-450); WHITE BLOOD COUNT 14.6 10^3/uL (4.0-10.0)
[2018-12-15 04:48] LABS: CALCIUM LEVEL 7.4 MG/DL (8.5-10.1); CREATININE FOR GFR 1.36 MG/DL (0.55-1.30); GLOMERULAR FILTRATION RATE 45.2 (>58); POTASSIUM SERUM 3.6 MEQ/L (3.5-5.1)
[2018-12-15] MEDS: LEVOTHYROXINE 100MCG TABLET (0.1MG) PO SCH (06:18)
[2018-12-15 08:29] LABS: CALCIUM LEVEL 7.4 MG/DL (8.5-10.1); CREATININE FOR GFR 1.16 MG/DL (0.55-1.30); GLOMERULAR FILTRATION RATE 54.3 (>58); POTASSIUM SERUM 3.8 MEQ/L (3.5-5.1)
[2018-12-15] MEDS ORDERED: LEVEMIR (INSULIN DETEMIR) 1 UNITS/0.01ML SC SCH (09:00)
[2018-12-15] MEDS ORDERED: DEXTROSE 50% 50 ML SYRINGE IV PRN (09:30)
[2018-12-15] MEDS ORDERED: GLUCAGON FOR INJ 1 MG VIAL (J1610) SC PRN (09:30)
[2018-12-15] MEDS ORDERED: GLUCOSE 4 GM CHEW TABLET PO PRN (09:30)
[2018-12-15] MEDS: ENOXAPARIN 40 MG/0.4 ML SYRINGE (J1650) SC SCH (09:48)
[2018-12-15] MEDS: BENZOCAINE 10% 9GM TUBE (ANBESOL) MT SCH ×2 (09:48→16:00)
[2018-12-15] MEDS ORDERED: HumaLOG INSULIN (NovoLOG) PER UNIT SC SCH ×3 (11:30→17:30)
[2018-12-15 14:51] LABS: BLOOD UREA NITROGEN 19 MG/DL (7-18); CALCIUM LEVEL 7.8 MG/DL (8.5-10.1); CARBON DIOXIDE LEVEL 19 MEQ/L (21-32); CHLORIDE LEVEL 110 MEQ/L (98-107); CREATININE FOR GFR 1.05 MG/DL (0.55-1.30); GLOMERULAR FILTRATION RATE > 60.0 (>58); GLUCOSE, FASTING 223 MG/DL (70-100); POTASSIUM SERUM 4.1 MEQ/L (3.5-5.1); SODIUM LEVEL 139 MEQ/L (136-145)
--- NOTE | 2018-12-15 19:25 | DS.PDOC ---
Discharge Summary General Date of Admission Dec 14, 2018 at 15:19 Date of Discharge 12.15.18 Discharge Summary PROCEDURES PERFORMED DURING STAY: [None]. ADMITTING DIAGNOSES: 1. DKA DISCHARGE DIAGNOSES: 1. DKA COMPLICATIONS/CHIEF COMPLAINT: DKA. HISTORY OF PRESENT ILLNESS: 43f with hx of type I dm, htn and hypothyroid, who presented with lethargy and vomiting. Pt is typically on an insulin pump with a mean daily dose of 100units. the battery cover of her pump broke. She ordered a new pump but was not getting insulin for about 24 hours prior to presentation. She was found to be in DKA. HOSPITAL COURSE: Pt was admitted to ICU. She was found to have severe acidosis. She was started on an insulin drip and fluid resuscitated. She was given an amp of bicarb due to severe acidosis and persistent hypotension. Over the first night her gap closed, her sugars improved, and her mental status improved. She was bridged to levemir and lispro subQ and started on a diet. repeat chemistry after this transition showed an increase in her gap and decrease in her bicarb. Her heart rate was also elevated at 120-130 sinus tach. She was eager to be discharged. It was explained to her that it is possible to rebound back into DKA and that the labs and vitals were concerning. She however insisted on leaving and signed an AMA form. She was explained the risks of this decision. She was also instructed to see her doctor mini, resume her pump mini, and return if she feels worse again DISCHARGE MEDICATIONS: Please see below. ALLERGIES: Please see below. PHYSICAL EXAMINATION ON DISCHARGE: General Exam: Positive: Alert, no distress Eye Exam: Positive: PERRLA, Conjunctiva & lids normal, EOMI; Negative: Sclera icteric ENT Exam: Positive: Atraumatic, Pharynx Normal; Negative: Mucous membr. moist/pink Neck Exam: Positive: Supple; Negative: JVD, thyromegaly Chest Exam: Positive: Clear to auscultation, Normal air movement Heart Exam: Positive: Tachycardic, Normal S1, Normal S2; Negative: Murmurs Abdomen Exam: Positive: Normal bowel sounds, Soft; Negative: Tenderness, Hepatospenomegaly Extremity Exam: Positive: Normal pulses; Negative: Clubbing, Cyanosis, Edema Skin Exam: Positive: Nl turgor and temperature; Negative: Breakdown, Lesion Neuro Exam: Positive: Normal Tone, Sensation Intact, Cranial Nerves 3-12 NL Psych Exam: Positive: Oriented x3, mental status normal, mood irate LABORATORY DATA: Please see below. ACTIVITY: [As tolerated]. DIET: diabetic DISPOSITION: 07 Against Medical Advice. DISCHARGE CONDITION: potentially unstable Vital Signs/I&Os Vital Signs Date Time Temp Pulse Resp B/P (MAP) Pulse Ox O2 Delivery O2 Flow Rate FiO2 12/15/18 10:00 113 18 142/85 (104) 98 12/15/18 08:00 98.6 12/14/18 19:06 Room Air I&O- Last 24 Hours up to 6 AM 12/15/18 06:00 Intake Total 6330 ml Output Total 2450 ml Balance 3880 ml Laboratory Data Labs 24H Laboratory Tests 2 12/14/18 20:16: Bedside Glucose (Misc Panel) 528*H 12/14/18 20:32: Bedside Glucose (Misc Panel) 554*H 12/14/18 21:07: Bedside Glucose (Misc Panel) 537*H 12/14/18 21:13: Blood Gas Bicarbonate Standard 12.8L, Arterial Blood pH 7.306L, Arterial Blood Partial Pressure CO2 20.5L, Arterial Blood Partial Pressure O2 153.3H, Arterial Blood Total CO2 10.6L, Arterial Blood HCO3 10.0L, Arterial Blood Base Excess - 14.7L, Arterial Blood Oxygen Saturation 99.0 12/14/18 21:56: Bedside Glucose (Misc Panel) 404H 12/14/18 22:58: Bedside Glucose (Misc Panel) 411H 12/14/18 23:51: Anion Gap 16, Glomerular Filtration Rate 39.1L, Blood Urea Nitrogen 45H, Creatinine 1.54H, Sodium Level 137, Potassium Level 4.0, Chloride Level 107, Carbon Dioxide Level 14L, Calcium Level 7.9L 12/14/18 23:52: Bedside Glucose (Misc Panel) 364H 12/15/18 01:03: Bedside Glucose (Misc Panel) 304H 12/15/18 02:04: Bedside Glucose (Misc Panel) 292H 12/15/18 02:55: Bedside Glucose (Misc Panel) 237H 12/15/18 03:52: Bedside Glucose (Misc Panel) 193H 12/15/18 04:24: Immature Granulocyte % (Auto) 0.5, White Blood Count 14.6H, Red Blood Count 3.40L, Hemoglobin 9.7L, Hematocrit 29.5L, Mean Corpuscular Volume 86.8, Mean Corpuscular Hemoglobin 28.5, Mean Corpuscular Hemoglobin Concent 32.9, Red Cell Distribution Width 13.1, Platelet Count 345, Neutrophils (%) (Auto) 78.9H, Lymphocytes (%) (Auto) 11.8L, Monocytes (%) (Auto) 8.5H, Eosinophils (%) (Auto) 0.1, Basophils (%) (Auto) 0.2, Neutrophils # (Auto) 11.5H, Lymphocytes # (Auto) 1.7, Monocytes # (Auto) 1.2H, Eosinophils # (Auto) 0.0, Basophils # (Auto) 0.0, Nucleated Red Blood Cells % (auto) 0.0, Anion Gap 8, Glomerular Filtration Rate 45.2L, Blood Urea Nitrogen 32H, Creatinine 1.36H, Sodium Level 139, Potassium Level 3.6, Chloride Level 113H, Carbon Dioxide Level 18L, Calcium Level 7.4L, B- Hydroxybutyrate 11.80H 12/15/18 05:11: Bedside Glucose (Misc Panel) 154H 12/15/18 06:17: Bedside Glucose (Misc Panel) 187H 12/15/18 06:55: Bedside Glucose (Misc Panel) 166H 12/15/18 07:54: Anion Gap 6L, Glomerular Filtration Rate 54.3L, Blood Urea Nitrogen 28H, Creat inine 1.16, Sodium Level 141, Potassium Level 3.8, Chloride Level 114H, Carbon Dioxide Level 21, Calcium Level 7.4L 12/15/18 08:08: Bedside Glucose (Misc Panel) 167H 12/15/18 09:04: Bedside Glucose (Misc Panel) 170H 12/15/18 09:52: Bedside Glucose (Misc Panel) 161H 12/15/18 11:06: Bedside Glucose (Misc Panel) 212H 12/15/18 14:17: Anion Gap 10, Glomerular Filtration Rate > 60.0, Blood Urea Nitrogen 19H, Creatinine 1.05, Sodium Level 139, Potassium Level 4.1, Chloride Level 110H, Carbon Dioxide Level 19L, Calcium Level 7.8L CBC/BMP Laboratory Tests 12/14/18 23:51 Calcium Level 7.9 L 12/15/18 04:24 Calcium Level 7.4 L, Red Blood Count 3.40 L, Mean Corpuscular Volume 86.8, Mean Corpuscular Hemoglobin 28.5, Mean Corpuscular Hemoglobin Concent 32.9, Red Cell Distribution Width 13.1, Neutrophils (%) (Auto) 78.9 H, Lymphocytes (%) (Auto) 11.8 L, Monocytes (%) (Auto) 8.5 H, Eosinophils (%) (Auto) 0.1, Basophils (%) (Auto) 0.2, Neutrophils # (Auto) 11.5 H, Lymphocytes # (Auto) 1.7, Monocytes # (Auto) 1.2 H, Eosinophils # (Auto) 0.0, Basophils # (Auto) 0.0 12/15/18 07:54 Calcium Level 7.4 L 12/15/18 14:17 Calcium Level 7.8 L FSBS Laboratory Tests Test 12/14/18 20:16 12/14/18 20:32 12/14/18 21:07 12/14/18 21:56 Range/Units Bedside Glucose (Misc Panel) 528 554 537 404 70-105 MG/DL Test 12/14/18 22:58 12/14/18 23:52 12/15/18 01:03 12/15/18 02:04 Range/Units Bedside Glucose (Misc Panel) 411 364 304 292 70-105 MG/DL Test 12/15/18 02:55 12/15/18 03:52 12/15/18 05:11 12/15/18 06:17 Range/Units Bedside Glucose (Misc Panel) 237 193 154 187 70-105 MG/DL Test 12/15/18 06:55 12/15/18 08:08 12/15/18 09:04 12/15/18 09:52 Range/Units Bedside Glucose (Misc Panel) 166 167 170 161 70-105 MG/DL Test 12/15/18 11:06 Range/Units Bedside Glucose (Misc Panel) 212 70-105 MG/DL Discharge Medications Scheduled Insulin Lispro (Admelog) 100 Unit/1 Ml Vial, 1 DOSE SQ ASDIRECTED, (Reported) USES INSULIN PUMP Levothyroxine Sodium (Levothyroxine Sodium) 200 Mcg Tablet, 200 MCG PO DAILY, (Reported) Lisinopril (Lisinopril) 20 Mg Tablet, 20 MG PO BID, (Reported) Naproxen Sod/Diphenhydramine (Aleve Pm Caplet) 1 Each Tablet, 2 TAB PO QHS, (Reported) Oxybutynin Chloride (Oxybutynin Chloride) 5 Mg Tablet, 15 MG PO DAILY, (Reported) Ranitidine HCl (Ranitidine HCl) 150 Mg Capsule, 1 CAP PO QHS, (Reported) Allergies Coded Allergies: Penicillins (Verified Allergy, Unknown, facial swelling, 12/14/18) latex (Verified Allergy, Unknown, itching, 12/14/18) morphine (Verified Allergy, Unknown, facial swelling, 12/14/18) oxycodone (Verified Allergy, Unknown, rash/itching, 12/14/18) MINERVA TINOCO MD Dec 15, 2018 19:25
[2018-12-16] MEDS ORDERED: HumaLOG INSULIN (NovoLOG) PER UNIT SC SCH (07:30)
[2018-12-16] MEDS ORDERED: CHLO125TA PO (13:16)
== END 2018-12-15 16:37 | disposition left against medical advice (07) | DRG 420 ==
LOC: EDBD 13:40 → M ED 13:40 → M ED INP 15:19 → M ICU 20:24
PROVIDERS: ADMIT Hospitalist; ATTEND Hospitalist
DX: E10.10 Type 1 diabetes mellitus with ketoacidosis without coma (principal); I95.9 Hypotension, unspecified; E03.9 Hypothyroidism, unspecified; I10 Essential (primary) hypertension; Z79.4 Long term (current) use of insulin; Z79.899 Other long term (current) drug therapy; Z88.0 Allergy status to penicillin; Z88.5 Allergy status to narcotic agent; Z91.040 Latex allergy status

== ENCOUNTER 2018-12-16 13:02 | Inpatient (IN) | payer OTHER ==
[~2018-12-16] VITALS: Ht 162.6 cm; Wt 66.1 kg
[~2018-12-16 13:02] MED LIST changes: +ADME100I SQ; +ALEV1TAB PO; +CHLO125TA PO; +LEVO200T4 PO; +LISI-538 PO; +OXYB5TAB10 PO; +RANI150C PO
[2018-12-16] MEDS ORDERED: CHLO125TA PO (13:16)
[2018-12-16 13:36] LABS: VENOUS BASE EXCESS -11.3 (-2.0-2.0); VENOUS HCO3 14.8 MEQ/L (23.0-27.0); VENOUS O2 SATURATION 76.2 % (60.0-80.0); VENOUS PARTIAL PRESSURE CO2 34.1 mmHg (38.0-50.0); VENOUS PARTIAL PRESSURE O2 44.4 mmHg (30.0-50.0); VENOUS PH 7.256 UNITS (7.330-7.430); VENOUS STANDARD HCO3 15.2 MEQ/L; VENOUS TOTAL CO2 15.9 MEQ/L (24.0-28.0)
[2018-12-16 13:39] LABS: BASO % 0.2 % (0.0-1.0); EOS % 0.1 % (0.0-3.0); HEMATOCRIT 32.7 % (36.0-47.0); HEMOGLOBIN 10.4 g/dl (12.0-15.5); LYMPH % 9.5 % (24.0-44.0); MEAN CORPUSCULAR HEMOGLOBIN 28.9 pg (27.0-33.0); MEAN CORPUSCULAR HGB CONC 31.8 g/dl (32.0-36.5); MEAN CORPUSCULAR VOLUME 90.8 fl (80.0-96.0); MONO # 0.5 10^3/uL (0.0-0.8); MONO % 4.8 % (0.0-5.0); NEUTROPHILS # 9.2 10^3/uL (1.8-7.7); NEUTROPHILS % 84.9 % (36.0-66.0); PLATELET COUNT, AUTOMATED 318 10^3/uL (150-450); WHITE BLOOD COUNT 10.9 10^3/uL (4.0-10.0)
[2018-12-16 14:04] LABS: ALBUMIN 3.2 GM/DL (3.2-5.2); ALT/SGPT 23 U/L (12-78); BILIRUBIN,DIRECT 0.2 MG/DL (0.0-0.2); BILIRUBIN,TOTAL 0.5 MG/DL (0.2-1.0); LIPASE 34 U/L (73-393); TOTAL PROTEIN 6.2 GM/DL (6.4-8.2)
[2018-12-16 14:35] LABS: HEMOGLOBIN A1c 11.9 %
[2018-12-16] MEDS ORDERED: NS 1,000 ML IV ONE (15:30)
[2018-12-16] MEDS ORDERED: INSULIN HUMAN REGULAR 100 UNITS in NS 99 ML IV SCH (15:30)
[2018-12-16 15:38] LABS: BLOOD UREA NITROGEN 15 MG/DL (7-18); CALCIUM LEVEL 8.5 MG/DL (8.5-10.1); CARBON DIOXIDE LEVEL 17 MEQ/L (21-32); CHLORIDE LEVEL 97 MEQ/L (98-107); CREATININE FOR GFR 1.24 MG/DL (0.55-1.30); GLOMERULAR FILTRATION RATE 50.3 (>58); POTASSIUM SERUM 4.7 MEQ/L (3.5-5.1)
[2018-12-16 17:32] LABS: ACETONE/KETONE > 46.00 MG/DL (<2.81); GLUCOSE, FASTING 656 MG/DL (70-100); SODIUM LEVEL 131 MEQ/L (136-145)
[2018-12-16] MEDS: D5W/0.45% SODIUM CHLORIDE 1,000 ML IV SCH ×2 (18:00→22:09)
--- NOTE | 2018-12-16 19:03 | HPEPDOC ---
[facility] Medical History & Physical Date of Admission Dec 16, 2018 Date of Service: Dec 16, 2018 Primary Care Physician: VANDANA DOZIER DO Attending Physician: PHILL CASILLAS MD History and Physical CHIEF COMPLAINT: Hyperglycemia HISTORY OF PRESENT ILLNESS: Patient is a 43-year-old female who presents to the emergency room today because she noticed her blood sugars at home are above 600. She states she has been feeling somewhat tired, but otherwise has no related symptoms to her elevated blood sugar. She was admitted 2 days ago for DKA and left AMA yesterday morning. She states she did recently start using a new [employer] pump for her insulin because her old pump had a part break. She is not sure if her current pump is working properly. She states otherwise there hav e been no recent changes in her medications, diet, or lifestyle. She does also complain of a sore throat and neck on the left side, which hurts to swallow. She states she feels like she may be coming down with a cold with a slightly runny nose and dry cough. She denies any fevers or chills. PAST MEDICAL HISTORY: 1. Insulin-dependent diabetes mellitus type 1. 2. Hypothyroidism. 3. Hypertension. 4. Urinary retention. 5. GERD PAST SURGICAL HISTORY: 1. 3 C-sections. 2. Appendectomy. 3. 3 lumbar laminectomies, removal of hardware. 4. Multiple trigger finger release. 5. Hysterectomy with BSO. 6. Right shoulder surgery SOCIAL HISTORY: Tobacco use: Current smoker, half pack a day with 15 pack year history ETOH: Occasional, once a month Illicit drug use: Denies IV drug use: Denies FAMILY HISTORY: Father: CAD Mother: DM Siblings: Brother with DM ALLERGIES: Please see below. REVIEW OF SYSTEMS: CONSTITUTIONAL: Admits to fatigue. Denies fevers, chills, night sweats, recent change in weight. HEENT: Admits to sore throat, mild rhinorrhea. Denies headache, vision change, ear pain. CARDIOVASCULAR: Denies chest pain, palpitations, lightheadedness, edema. RESPIRATORY: Admits to mild nonproductive cough. Denies shortness of breath, wheezing. GASTROINTESTINAL: Denies nausea, vomiting, abdominal pain, diarrhea, constipation. GENITOURINARY: Denies dysuria, urinary frequency. SKIN: Denies rash or new lesions. MUSCULOSKELETAL: Denies joint pains, muscle aches. NEUROLOGICAL: Denies confusion, dizziness. PSYCHIATRIC: Denies change in mood or affect. ENDOCRINE: Denies polydipsia, polyuria. HOME MEDICATIONS: Please see below. PHYSICAL EXAMINATION: VITAL SIGNS: Temperature 99.1, pulse 116, respiratory rate 17, blood pressure 119/64, pulse oximetry 100 % on room air. GENERAL APPEARANCE: Alert, comfortable, lying in bed in no acute respiratory distress. HEENT: PERRLA, EOMI, ear canals patent with pearly TMs bilaterally and no fluid. No lesions in the mouth. Throat is not injected, no exudates present. NECK: Supple, no JVD, mildly tender along the left anterior side, no lymphadenopathy palpated. CARDIOVASCULAR: Normal S1 and S2, tachycardic with regular rhythm., No murmurs, rubs or gallops LUNGS: Clear to auscultation bilaterally, no wheezes, rhonchi or rales. ABDOMEN: Soft, nontender, nondistended, Bowel sounds present. No masses or hepatosplenomegaly MUSCULOSKELETAL: ROM limited in R shoulder due to recent surgery, otherwise full ROM in extremities. Strength intact in 4/4 extremities. EXTREMITIES: No edema, cyanosis or clubbing. Pulses 2+/4 in the radial and dorsalis pedis arteries. NEUROLOGICAL: Alert and oriented 3 to person, place and time. Cranial nerves III - XII grossly intact. No focal deficits PSYCHIATRIC: Mood and affect normal. LABORATORY DATA: See below. IMAGING: None MICROBIOLOGY: Please see below. ASSESSMENT: 43-year-old female with past medical history of type 1 diabetes mellitus complains of hyperglycemia at home and fatigue, admitted for DKA. PLAN: 1. DKA. Patient was admitted 2 days ago and partially treated for DKA. However, the patient left AMA yesterday morning. The patient has been started on a new [employer] pump recently. If this is not functioning correctly could be the cause of her DKA. The patient presented to the ED today with a glucose level of 656 and anion gap of 17. Based on her VBG she has a metabolic acidosis. She has an elevated beta- hydroxybutyrate level. Patient received 1 L normal saline in the ED and was started on insulin drip. Her blood glucose subsequently dropped down to 212. She'll be admitted to the ICU. Will continue insulin drip and start D5W with 1/2NS at 200 mls/hr We'll monitor blood glucose every hour until her anion gap is below 10. At that point, we will bridge her to a basal and short acting insulin regimen We'll monitor her electrolytes and replete as needed. Check BMP and magnesium every 4 hours 2. Possible viral infection. Patient does feel like she may have something coming on with sore throat, mild rhinorrhea and mild dry cough. Check respiratory panel 3. Hypothyroidism. Continue her home levothyroxine 4. Hypertension. Will hold her home chlorthalidone for now. Continue with her home lisinopril. 5. DVT prophylaxis. Start patient on Lovenox Vital Signs Vital Signs Date Time Temp Pulse Resp B/P (MAP) Pulse Ox O2 Delivery O2 Flow Rate FiO2 12/16/18 13:22 99.1 116 17 119/64 (82) 100 Room Air Laboratory Data Labs 24H Laboratory Tests 2 12/16/18 13:26: Immature Granulocyte % (Auto) 0.5, White Blood Count 10.9H, Red Blood Count 3.60L, Hemoglobin 10.4L, Hematocrit 32.7L, Mean Corpuscular Volume 90.8, Mean Corpuscular Hemoglobin 28.9, Mean Corpuscular Hemoglobin Concent 31.8L, Red Cell Distribution Width 14.2, Platelet Count 318, Neutrophils (%) (Auto) 84.9H, Lymphocytes (%) (Auto) 9.5L, Monocytes (%) (Auto) 4.8, Eosinophils (%) (Auto) 0.1, Basophils (%) (Auto) 0.2, Neutrophils # (Auto) 9.2H, Lymphocytes # (Auto) 1.0L, Monocytes # (Auto) 0.5, Eosinophils # (Auto) 0.0, Basophils # (Auto) 0.0, Nucleated Red Blood Cells % (auto) 0.0, Blood Gas Bicarbonate Standard 15.2, Venous Blood pH 7.256L, Venous Blood Partial Pressure CO2 34.1L, Venous Blood Partial Pressure O2 44.4, Venous Blood Total Carbon Dioxide 15.9L, Venous Blood HCO3 14.8L, Venous Blood Oxygen Saturation 76.2, Venous Blood Base Excess - 11.3L, Anion Gap 17H, Glomerular Filtration Rate 50.3L, Estimated Mean Plasma Glucose 295H, Hemoglobin A1c 11.9, Calcium Level 8.5, Aspartate Amino Transf (AST/SGOT) 29, Alanine Aminotransferase (ALT/SGPT) 23, Alkaline Phosphatase 102, Total Bilirubin 0.5, Direct Bilirubin 0.2, Total Protein 6.2L, Albumin 3.2, Albumin/Globulin Ratio 1.07, Lipase 34L, B-Hydroxybutyrate > 46.00H 12/16/18 16:01: Bedside Glucose (Misc Panel) 462H 12/16/18 17:02: Bedside Glucose (Misc Panel) 351H 12/16/18 18:02: Bedside Glucose (Misc Panel) 212H CBC/BMP Laboratory Tests 12/16/18 13:26 Red Blood Count 3.60 L, Mean Corpuscular Volume 90.8, Mean Corpuscular Hemoglobin 28.9, Mean Corpuscular Hemoglobin Concent 31.8 L, Red Cell Distribution Width 14.2, Neutrophils (%) (Auto) 84.9 H, Lymphocytes (%) (Auto) 9.5 L, Monocytes (%) (Auto) 4.8, Eosinophils (%) (Auto) 0.1, Basophils (%) (Auto) 0.2, Neutrophils # (Auto) 9.2 H, Lymphocytes # (Auto) 1.0 L, Monocytes # (Auto) 0.5, Eosinophils # (Auto) 0.0, Basophils # (Auto) 0.0 Home Medications Scheduled Chlorthalidone (Chlorthalidone) 25 Mg Tablet, 25 MG PO QPM TAKES AT 1900 Insulin Lispro (Admelog) 100 Unit/1 Ml Vial, 1 DOSE SQ ASDIRECTED USES INSULIN PUMP Levothyroxine Sodium (Levothyroxine Sodium) 200 Mcg Tablet, 200 MCG PO DAILY Lisinopril (Lisinopril) 20 Mg Tablet, 20 MG PO BID Oxybutynin Chloride (Oxybutynin Chloride) 5 Mg Tablet, 15 MG PO QPM TAKES AT 1900 Ranitidine HCl (Ranitidine HCl) 150 Mg Capsule, 1 CAP PO QHS Allergies Coded Allergies: Penicillins (Verified Allergy, Unknown, facial swelling, 12/14/18) latex (Verified Allergy, Unknown, itching, 12/14/18) morphine (Verified Allergy, Unknown, facial swelling, 12/14/18) oxycodone (Verified Allergy, Unknown, rash/itching, 12/14/18) A-FIB/CHADSVASC A-FIB History Current/History of A-Fib/PAF?: No FLAVIA CANNON PGY-1 Dec 16, 2018 19:03
[2018-12-16 19:08] LABS: VENOUS BASE EXCESS -6.6 (-2.0-2.0); VENOUS HCO3 17.5 MEQ/L (23.0-27.0); VENOUS PARTIAL PRESSURE CO2 30.9 mmHg (38.0-50.0); VENOUS PH 7.371 UNITS (7.330-7.430); VENOUS STANDARD HCO3 19.1 MEQ/L; VENOUS TOTAL CO2 18.5 MEQ/L (24.0-28.0)
[2018-12-16 19:53] LABS: BLOOD UREA NITROGEN 12 MG/DL (7-18); CALCIUM LEVEL 9.2 MG/DL (8.5-10.1); CARBON DIOXIDE LEVEL 18 MEQ/L (21-32); CHLORIDE LEVEL 106 MEQ/L (98-107); CREATININE FOR GFR 0.94 MG/DL (0.55-1.30); GLOMERULAR FILTRATION RATE > 60.0 (>58); GLUCOSE, FASTING 187 MG/DL (70-100); MAGNESIUM LEVEL 1.7 MG/DL (1.8-2.4); SODIUM LEVEL 139 MEQ/L (136-145)
[2018-12-16 20:45] VITALS: BP 132/89
[2018-12-16] MEDS ORDERED: MAGIC MOUTHWASH SUSPENSION BTL SS PRN (21:30)
[2018-12-16] MEDS: MAGNESIUM OXIDE 400 MG TAB (MAG-OX) PO SCH (21:31)
[2018-12-16] MEDS: LISINOPRIL 20 MG TAB PO SCH (21:31)
[2018-12-16 22:57] LABS: BLOOD UREA NITROGEN 9 MG/DL (7-18); CALCIUM LEVEL 8.9 MG/DL (8.5-10.1); CARBON DIOXIDE LEVEL 17 MEQ/L (21-32); CHLORIDE LEVEL 105 MEQ/L (98-107); CREATININE FOR GFR 0.98 MG/DL (0.55-1.30); GLOMERULAR FILTRATION RATE > 60.0 (>58); GLUCOSE, FASTING 223 MG/DL (70-100); MAGNESIUM LEVEL 1.6 MG/DL (1.8-2.4); POTASSIUM SERUM 3.6 MEQ/L (3.5-5.1); SODIUM LEVEL 137 MEQ/L (136-145)
[2018-12-16] MEDS: ACETAMINOPHEN TAB 650MG DOSE (2X325MG) PO PRN (23:07)
[2018-12-16] MEDS: INSULIN IV RATE CHANGE DOCUMENTATION ML/HR XX SCH (23:11)
[2018-12-16] MEDS ORDERED: KCL 40MEQ IN D5/0.45NS 1000ML 1,000 ML IV SCH (23:30)
[2018-12-17] VITALS (8 sets, daily range): BP systolic 127–169; BP diastolic 68–107
[2018-12-17] MEDS: INSULIN IV RATE CHANGE DOCUMENTATION ML/HR XX SCH ×5 (00:14→06:18)
[2018-12-17] MEDS ORDERED: INSULIN HUMAN REGULAR 100 UNITS in NS 99 ML IV SCH (01:00)
[2018-12-17] MEDS ORDERED: AZITHROMYCIN 250 MG TAB PO ONE (02:30)
[2018-12-17 02:36] LABS: BLOOD UREA NITROGEN 7 MG/DL (7-18); CALCIUM LEVEL 8.7 MG/DL (8.5-10.1); CARBON DIOXIDE LEVEL 23 MEQ/L (21-32); CHLORIDE LEVEL 108 MEQ/L (98-107); CREATININE FOR GFR 0.82 MG/DL (0.55-1.30); GLOMERULAR FILTRATION RATE > 60.0 (>58); GLUCOSE, FASTING 169 MG/DL (70-100); MAGNESIUM LEVEL 1.7 MG/DL (1.8-2.4); POTASSIUM SERUM 3.8 MEQ/L (3.5-5.1); SODIUM LEVEL 141 MEQ/L (136-145)
[2018-12-17] MEDS: ACETAMINOPHEN TAB 650MG DOSE (2X325MG) PO PRN ×4 (03:05→19:50)
[2018-12-17] MEDS: LEVOTHYROXINE 100MCG TABLET (0.1MG) PO SCH (06:12)
[2018-12-17] MEDS ORDERED: GLUCAGON FOR INJ 1 MG VIAL (J1610) SC PRN (07:15)
[2018-12-17] MEDS ORDERED: GLUCOSE 4 GM CHEW TABLET PO PRN (07:15)
[2018-12-17] MEDS ORDERED: DEXTROSE 50% 50 ML SYRINGE IV PRN (07:15)
[2018-12-17 07:24] LABS: HEMOGLOBIN 10.7 g/dl (12.0-15.5); MEAN CORPUSCULAR HEMOGLOBIN 28.4 pg (27.0-33.0); MEAN CORPUSCULAR HGB CONC 32.4 g/dl (32.0-36.5); MEAN CORPUSCULAR VOLUME 87.5 fl (80.0-96.0); PLATELET COUNT, AUTOMATED 313 10^3/uL (150-450); RED BLOOD COUNT 3.77 10^6/uL (4.00-5.40); WHITE BLOOD COUNT 8.2 10^3/uL (4.0-10.0)
[2018-12-17] MEDS: HumaLOG INSULIN (NovoLOG) PER UNIT SC SCH ×3 (07:30→17:26)
[2018-12-17] MEDS ORDERED: MAG SULF 1GM/100ML (MAG RUN) 1 GM in APPROPRIATE DILUENT 1 EA IV ONE ×2 (07:45→08:00)
[2018-12-17] MEDS: LISINOPRIL 20 MG TAB PO SCH ×2 (07:46→21:14)
[2018-12-17] MEDS: ENOXAPARIN 40 MG/0.4 ML SYRINGE (J1650) SC SCH (07:46)
[2018-12-17] MEDS: MAGNESIUM OXIDE 400 MG TAB (MAG-OX) PO SCH ×2 (07:46→21:14)
[2018-12-17] MEDS ORDERED: CHLORASEPTIC SPRAY MT PRN (08:00)
[2018-12-17] MEDS ORDERED: LEVEMIR (INSULIN DETEMIR) 1 UNITS/0.01ML SC ONE ×2 (08:00→21:00)
--- NOTE | 2018-12-17 08:47 | IPN ---
DATE: 12/17/2018 Patient has been on insulin drip overnight. Anion gap has closed. This morning she is requesting to eat something. She still complains of left sided throat pain and difficult swallowing because of pain. No thrush and no history of esophagitis. Patient is edentulous. She says that this started about Sunday and progressed onwards and was evaluated in the ER and signed out against medical advise and returned to increased sugar levels. The patient's insulin pump may have malfunctioned and she came in with diabetic ketoacidosis with glucose in the 600's and anion gap. Patient is requesting for [employer] quality assurance lab technician to check her insulin pump. She sees Dr. Krishnan at the resident clinic who had initially referred her to Dr. Cindy Vance, [employer] who is unable to take her because of the insulin pump according to the patient. She is unable to go to [facility] in [place] due to transportation issues. This morning she denies any fever, chills. She felt somewhat congested but had a bit of rhinorrhea and a dry cough with persistent pain in the left side of the throat. She is currently on Azithromycin, chest x-ray shows no acute infiltrate or consolidation. Possible air space disease. Urinalysis is negative. She had a low grade temperature of 100.8 overnight. She is currently medically stable to transfer to a medical surgical floor. PHYSICAL EXAMINATION: VITAL SIGNS: Maximum temperature 100.5, current temperature 100.5, pulse 100 sinus, respiratory rate 18, blood pressure 128/68, 95% on room air. GENERAL: The patient is awake, alert and oriented and answering questions appropriately. She is edentulous. No respiratory distress or use of respiratory accessory muscles. Pupils are round and reactive to light. Extraocular muscles are intact. Neck has a left sided cervical lymphadenopathy. No jugular venous distension, thyromegaly. Lungs are clear to auscultation. No wheezing, rales, or rhonchi. Heart S1, S2 sinus tachycardia. No murmurs, rubs, or gallops. Abdomen is soft, nontender and nondistended. Positive bowel sounds. Extremities no cyanosis, clubbing or pitting edema. CBC and metabolic panel have been reviewed and notable for magnesium of 1.7, anion gap is closed. Microbiology: Strep screen is negative. Respiratory panel 12/16 is also negative. IMAGING STUDIES: Chest x-ray settled by basilar air space. ASSESSMENT AND PLAN: 43-year-old female who presented to the emergency room with controlled diabetes with glucose of 600 and complains of left sided sore throat pain. CURRENT ISSUES: Diabetic ketoacidosis resolved. Anion gap has closed status-post insulin drip. Levemir insulin 18 units subcu times one. Discontinue insulin drip at 10 am. Resume consistent carbohydrate diet, fingersticks before meals and at bedtime with insulin sliding scale. Patient family services consulted from [employer] check. Continue D5 normal saline and to complete the bag and discontinue once the patient takes it oral intake. Left sided throat pain, possible viral illness however respiratory panel was negative. Strep screen is negative. Currently on Azithromycin due to low grade temperature of 100.5. Sepsis, maximum temperature 100.5. Tachycardiac at the bedside of 115 currently on Azithromycin 500 mg daily. Respiratory panel is negative. Chest x-ray shows air space disease. UA is negative. Rubella strep is negative. Sore throat. Group B strep is negative. Respiratory panel is negative. Symptomatic release with Cepacol lozenges and spray. Hypertension. Currently on 20 mg twice a day of Lisinopril with blood pressure ranging from 128 systolic to 150 systolic and diastolic of 76-93. We will continue on the same dose for now and should the blood pressure today be greater than 140 systolic or greater than 95 diastolic we will adjust medications. Patient's heart rate is 100-115 and no history of DVT, PE, or hypocoagulable state. Patient may benefit from betablockers once she is rehydrated and tolerating oral intake. Hypothyroidism. Continue on home dose of levothyroxine at 200 mcg daily. DVT prophylaxis with Lovenox at 40 mg subcu. Hypomagnesemia already on mag ox 400 twice a day. We will recheck her level in the morning. Disposition may discharge home in the morning once insulin pump has been tested.
[2018-12-17] MEDS ORDERED: AZITHROMYCIN 250 MG TAB PO SCH (21:00)
[2018-12-17] MEDS ORDERED: HumaLOG INSULIN (NovoLOG) PER UNIT SC SCH (21:00)
[2018-12-17] MEDS ORDERED: amLODIPine 10 MG TAB PO SCH (21:15)
[2018-12-18] MEDS: ACETAMINOPHEN TAB 650MG DOSE (2X325MG) PO PRN ×2 (00:41→06:57)
[2018-12-18 06:00] VITALS: BP 129/85
[2018-12-18 06:26] LABS: HEMATOCRIT 35.1 % (36.0-47.0); HEMOGLOBIN 11.6 g/dl (12.0-15.5); MEAN CORPUSCULAR HEMOGLOBIN 28.7 pg (27.0-33.0); MEAN CORPUSCULAR VOLUME 86.9 fl (80.0-96.0); PLATELET COUNT, AUTOMATED 329 10^3/uL (150-450); RED BLOOD COUNT 4.04 10^6/uL (4.00-5.40); WHITE BLOOD COUNT 8.3 10^3/uL (4.0-10.0)
[2018-12-18 06:50] LABS: BLOOD UREA NITROGEN 9 MG/DL (7-18); CARBON DIOXIDE LEVEL 27 MEQ/L (21-32); CHLORIDE LEVEL 102 MEQ/L (98-107); CREATININE FOR GFR 0.77 MG/DL (0.55-1.30); GLOMERULAR FILTRATION RATE > 60.0 (>58); GLUCOSE, FASTING 228 MG/DL (70-100); MAGNESIUM LEVEL 2.2 MG/DL (1.8-2.4); POTASSIUM SERUM 3.5 MEQ/L (3.5-5.1); SODIUM LEVEL 136 MEQ/L (136-145)
[2018-12-18] MEDS: LEVOTHYROXINE 100MCG TABLET (0.1MG) PO SCH (06:56)
[2018-12-18] MEDS ORDERED: AMLO10TA5 PO (08:32)
[2018-12-18] MEDS ORDERED: INSUDET SC (08:32)
[2018-12-18] MEDS ORDERED: INSU100V2 SQ ×2 (08:38→15:19)
[2018-12-18] MEDS ORDERED: [UNRECOGNIZED DRUG - CODE] XX (08:40)
[2018-12-18] MEDS ORDERED: AZIT500T2 PO (08:42)
[2018-12-18] MEDS ORDERED: CEPALOZ8 PO (08:42)
[2018-12-18 08:50] VITALS: BP 129/85
[2018-12-18] MEDS: HumaLOG INSULIN (NovoLOG) PER UNIT SC SCH (08:50)
[2018-12-18] MEDS: LISINOPRIL 20 MG TAB PO SCH (08:50)
[2018-12-18] MEDS: ENOXAPARIN 40 MG/0.4 ML SYRINGE (J1650) SC SCH ×2 (08:50→08:57)
[2018-12-18] MEDS: MAGNESIUM OXIDE 400 MG TAB (MAG-OX) PO SCH (08:50)
[2018-12-18] MEDS ORDERED: LEVEMIR (INSULIN DETEMIR) 1 UNITS/0.01ML SC SCH ×2 (09:00)
[2018-12-18] MEDS ORDERED: BASA100I SC (10:16)
--- NOTE | 2018-12-19 17:44 | DSES ---
DATE OF ADMISSION: 12/16/2018 DATE OF DISCHARGE: 12/18/2018 CONSULTANTS: None. DISCHARGE DIAGNOSES: 1. Diabetic ketoacidosis due to malfunctioning insulin pump. 2. Uncontrolled hypertension. 3. Sore throat with negative Streptococcus screen and respiratory panel. 4. Electrolyte abnormalities with hypomagnesemia. 5. Hypothyroidism. DISCHARGE MEDICATIONS: - Basaglar insulin 18 units subcutaneous twice a day - Lispro insulin sliding scale before food - azithromycin 500 mg daily - Norvasc 10 mg nightly - Cepacol lozenges one tablet every 4 hours - levothyroxine 200 mcg daily - lisinopril 20 mg twice a day - oxybutynin 15 mg every evening - ranitidine one capsule by mouth nightly DISCHARGE INSTRUCTIONS: Warm compress to left side of the neck for comfort. Followup with primary care physician within 5 days. Patient is to contact [employer]'s insulin pump in order to check her insulin pump and resume if she wishes as outpatient. However, patient has indicated that she would prefer to go back on her long-acting insulin and sliding scale instead of the insulin pump due to malfunction causing diabetic ketoacidosis (DKA). HOSPITAL COURSE: This is a 43-year-old female with history of type 1 diabetes, hypothyroidism, hypertension, chronic urinary retention, and reflux, presented to the emergency room with complaints of sore throat as well as neck pain, difficulty swallowing and some odynophagia, she had complained of some rhinorrhea, nasal congestion, and a dry cough without any fever or chills. In the emergency room (ER), she was noted to have diabetic ketoacidosis and was subsequently admitted by hospitalist to intensive care unit (ICU), placed on an insulin drip with every 1 hour finger sticks, every 4 hours metabolic panel until the anion gap closed. Patient's [employer]'s insulin pump did not appear to be working. She had called the [employer]'s technician support association who indicated to her that they will have a claim representative look into it on . Patient was transitioned over to subcutaneous Levemir insulin at 18 units twice a day and transferred out of the ICU to a medical surgical floor where she remained stable with a closed anion gap and tolerating her consistent carbohydrate diet. Patient had indicated that she would prefer to use a long-acting insulin rather than go another insulin pump at this time. We had initially sent off Levemir insulin to her pharmacy which was not approved by insurance and subsequently changed her over to Basaglar insulin. During the admission she had episodes of low magnesium which were supplemented with magnesium runs. Potassium levels remained stable at 3.5 to 4.0. Streptococcus screen was negative. Respiratory panel was also negative. She was treated with azithromycin, as well as warm compresses, Cepacol lozenges, which improved her symptoms. Patient is discharged in stable condition to followup with her primary care physician within 5 days of discharge. LABORATORY DATA ON DISCHARGE: White count 8.3, hemoglobin 11.6, hematocrit 35, platelet count 329, sodium 136, potassium 3.5, chloride 102, bicarbonate 27, BUN 9, creatinine 0.77, glucose of 228, magnesium of 2.2. Microbiology: 12/16/2018 group A Streptococcus negative. Respiratory panel 12/16/2018 is also negative. Chest x-ray on 12/14/2018 showed subtle bibasilar air space disease. No pneumothorax. Mediastinum and cardiac silhouette are normal with no effusion. TIME SPENT ON DISCHARGE: 32 minutes
== END 2018-12-18 11:45 | disposition home or self-care (01) | DRG 813 ==
LOC: M ED 13:02 → M ED INP 17:55 → M ICU 20:35 → M MS5PR 12-17 17:40
PROVIDERS: ADMIT Internal Medicine; ATTEND General Practice
DX: T85.614A Breakdown (mechanical) of insulin pump, initial encounter (principal); E10.10 Type 1 diabetes mellitus with ketoacidosis without coma; E83.42 Hypomagnesemia; B34.9 Viral infection, unspecified; I10 Essential (primary) hypertension; E03.9 Hypothyroidism, unspecified; Z79.4 Long term (current) use of insulin; Z79.899 Other long term (current) drug therapy; K21.9 Gastro-esophageal reflux disease without esophagitis; F17.200 Nicotine dependence, unspecified, uncomplicated; Z88.0 Allergy status to penicillin; Z91.040 Latex allergy status

== ENCOUNTER 2019-01-08 12:42 | Outpatient (RCR) | payer OTHER ==
[~2019-01-08 12:42] MED LIST changes: +AMLO10TA5 PO; +AZIT500T2 PO; +BASA100I SC; +CEPALOZ8 PO; +INSU100V2 SQ; +INSUDET SC; +[UNRECOGNIZED DRUG - CODE] XX
== END 2019-01-11 | disposition home or self-care (01) ==
LOC: M PT 12:42
PROVIDERS: ATTEND Orthopaedic Surgery Sports Medicine
DX: Z47.89 Encounter for other orthopedic aftercare (principal); Z98.890 Other specified postprocedural states; M25.511 Pain in right shoulder

== ENCOUNTER → 2019-01-15 | Outpatient (CLI) | payer OTHER ==
--- NOTE | 2019-01-15 16:14 | REP ---
COOKIE SWALLOW The procedure was performed under the direct supervision of Dr. Wood. The procedure was performed with Maxine Wyatt from speech pathology present. 5 ml aliquots of thin, nectar, pudding, fruit and soft solid consistency barium was administered. There is no evidence of penetration or aspiration. A detailed report of this examination will be provided by speech pathology. 0.8 minutes of fluoroscopy time was utilized for this procedure. Reviewed by MYRA Chaidez 01/15/2019 04:02 P Electronically Signed by Oliver Wood MD 01/15/2019 04:05 P
== END ==
LOC: M ST 13:41
PROVIDERS: ATTEND Otolaryngology
DX: R13.10 Dysphagia, unspecified (principal)

== ENCOUNTER 2019-01-16 10:12 | Outpatient (RCR) | payer OTHER | END 2019-02-10 | LOC: M PT 10:12 | PROVIDERS: ATTEND Orthopaedic Surgery Sports Medicine | DX: Z47.89 Encounter for other orthopedic aftercare (principal); Z98.890 Other specified postprocedural states; M25.511 Pain in right shoulder ==

== ENCOUNTER → 2019-03-31 | Outpatient (CLI) | payer OTHER ==
[~2019-03-31] MED LIST changes: -AZIT500T2 PO; +AZIT500T5 PO; -LIOT5TAB PO; +LIOT5TAB6 PO; -OMEP40CA2 PO; +OMEP40CA97 PO
[2019-03-31 12:14] LABS: BLOOD UREA NITROGEN 14 MG/DL (7-18); CREATININE FOR GFR 0.71 MG/DL (0.55-1.30); GLOMERULAR FILTRATION RATE > 60.0 (>58)
== END ==
LOC: M LAB 10:43
PROVIDERS: ATTEND Otolaryngology
DX: R13.10 Dysphagia, unspecified (principal)

== ENCOUNTER → 2019-04-02 | Outpatient (CLI) | payer OTHER ==
[~2019-04-02] MED LIST changes: +ISOVUE-370 76% 100ML VIAL (Q9967) As Ordered ONE
--- NOTE | 2019-04-02 09:28 | REP ---
CT neck: 04/02/2019. Indication: Dysphasia. Comparison: None. Technique: Axial CT images of the neck soft tissues were obtained following IV administration of 75 ml Isovue 370. New coronal and sagittal reconstructions were provided. Findings: There is no abnormal solid soft tissue mass, abnormal fluid collection or cervical lymphadenopathy. No exophytic lesions or additional abnormalities of the pharyngeal mucosal space are detected. Small left maxillary retention cyst is present. The paranasal sinuses and mastoid air cells are otherwise clear. Bilateral carotid atherosclerotic disease is noted. The submandibular, parotid and thyroid glands are without focal abnormality. The visualized lungs are clear. No ocular, intraorbital or intracranial abnormalities are detected. Impression: No abnormal solid soft tissue masses, abnormal fluid collections or cervical lymphadenopathy. Electronically Signed by Braulio Saini DO 04/02/2019 09:20 A
== END ==
LOC: M RAD 08:27
PROVIDERS: ATTEND Otolaryngology
DX: R13.10 Dysphagia, unspecified (principal)
CPT/HCPCS: 70491; Q9967

== ENCOUNTER → 2019-06-23 | Outpatient (REF) | payer OTHER ==
[~2019-06-23] MED LIST changes: -ISOVUE-370 76% 100ML VIAL (Q9967) As Ordered ONE
== END ==
LOC: M SFHCPLAZ 13:58
PROVIDERS: ATTEND Family Medicine
DX: Z53.9 Procedure and treatment not carried out, unspecified reason (principal)

== ENCOUNTER → 2019-06-25 | Outpatient (CLI) | payer OTHER ==
[2019-06-25 12:05] LABS: HEMOGLOBIN A1c 11.8 %
--- NOTE | 2019-06-25 13:28 | REP ---
Clinical: Bilateral hip pain. Technique: Frontal view of the pelvis with neutral and frog lateral views of the bilateral hips. Findings: There is no evidence for acute fracture or dislocation. Hips demonstrate relatively symmetric mild increased sclerosis to the acetabular roof with very subtle early marginal spurring and minimal joint space narrowing. No periarticular calcifications, loose bodies, or erosive changes noted. Peripheral vascular disease noted. Impression: Mild symmetric arthritic changes. Electronically Signed by Enrique Krishnamurthy MD 06/25/2019 01:20 P
== END ==
LOC: M LAB 10:58
PROVIDERS: ATTEND Student in an Organized Health Care Education/Training Program
DX: E10.8 Type 1 diabetes mellitus with unspecified complications (principal)

== ENCOUNTER 2019-07-09 10:53 | Outpatient (RCR) | payer OTHER | END 2019-07-12 | LOC: M PT 10:53 | PROVIDERS: ATTEND Student in an Organized Health Care Education/Training Program | DX: Z51.89 Encounter for other specified aftercare (principal); M25.551 Pain in right hip ==

== ENCOUNTER 2019-07-25 10:15 | Outpatient (RCR) | payer OTHER | END 2019-08-12 | LOC: M PT 10:15 | PROVIDERS: ATTEND Student in an Organized Health Care Education/Training Program | DX: Z51.89 Encounter for other specified aftercare (principal); M25.551 Pain in right hip ==

== ENCOUNTER → 2019-08-01 | Outpatient (REF) | payer OTHER | LOC: M SFHCPLAZ 17:06 | PROVIDERS: ATTEND Student in an Organized Health Care Education/Training Program | DX: J06.9 Acute upper respiratory infection, unspecified (principal) ==

== ENCOUNTER → 2019-11-07 | Outpatient (CLI) | payer OTHER ==
[2019-11-07 14:49] LABS: HEMOGLOBIN A1c 10.8 %
[2019-11-07 14:53] LABS: FREE T4 0.96 NG/DL (0.76-1.46); THYROID STIMULATING HORMONE 4.47 uIU/ML (0.358-3.740)
== END ==
LOC: M LAB 12:31
PROVIDERS: ATTEND Student in an Organized Health Care Education/Training Program
DX: E10.8 Type 1 diabetes mellitus with unspecified complications (principal); E03.8 Other specified hypothyroidism

== ENCOUNTER → 2019-12-03 | Outpatient (REF) | payer OTHER ==
[~2019-12-03] MED LIST changes: +ADME100I2 SC; +ALBU8.5H; -AMLO10TA5 PO; +AMLO1TAB25 PO; +BUDE10.22; +CARA1TAB6 PO; +CYCL-707 PO; +INSULIN BASAGLAR SQ; +NAPR-837 PO; +OMEP-218; +OMEP1CAP73 PO; +OMEP20TA17; +PANT40TA29 PO; +SUCR1TA PO
[2019-12-03 18:59] LABS: APPEARANCE, URINE CLEAR (CLEAR); BACTERIA, URINE AUTO NEGATIVE (NEGATIVE); BILIRUBIN, URINE AUTO NEGATIVE (NEGATIVE); BLOOD, URINE BLOOD NEGATIVE (NEGATIVE); COLOR, URINE YELLOW (YELLOW); GLUCOSE, URINE (UA) AUTO 2+ mg/dL (NEGATIVE); KETONE, URINE AUTO NEGATIVE (NEGATIVE); LEUKOCYTE ESTERASE, URINE AUTO NEGATIVE (NEGATIVE); NITRITE, URINE AUTO NEGATIVE (NEGATIVE); PROTEIN, URINE AUTO NEGATIVE (NEGATIVE); RBC, URINE AUTO 0 /HPF (0-3); SPECIFIC GRAVITY URINE AUTO 1.014 (1.002-1.035); SQUAMOUS EPITHELIAL CELL UR AU 0 /HPF (0-6); UROBILINOGEN, URINE AUTO 0.2 mg/dL (0.0-2.0); WBC, URINE AUTO 0 /HPF (0-3)
== END ==
LOC: M LAB REF 17:27
PROVIDERS: ATTEND Obstetrics & Gynecology
DX: N39.41 Urge incontinence (principal)

== ENCOUNTER 2020-01-18 17:18 | Emergency (ER) | payer OTHER ==
[~2020-01-18] VITALS: Ht 165.1 cm; Wt 78.6 kg
[~2020-01-18 17:18] MED LIST changes: -ADME100I2 SC; -ALBU8.5H; -BUDE10.22; -CARA1TAB6 PO; -CYCL-707 PO; -INSULIN BASAGLAR SQ; -NAPR-837 PO; -OMEP-218; -OMEP1CAP73 PO; -OMEP20TA17; -PANT40TA29 PO; -SUCR1TA PO
[2020-01-18] MEDS ORDERED: ADME100I2 SC (17:40)
[2020-01-18] MEDS ORDERED: OMEP1CAP73 PO (17:40)
[2020-01-18] MEDS ORDERED: INSULIN BASAGLAR SQ (17:40)
[2020-01-18 18:15] LABS: BASO % 0.2 % (0.0-1.0); EOS # 0.1 10^3/uL (0.0-0.5); EOS % 1.2 % (0.0-3.0); HEMATOCRIT 33.9 % (36.0-47.0); HEMOGLOBIN 10.6 g/dl (12.0-15.5); LYMPH # 1.9 10^3/uL (1.5-5.0); LYMPH % 23.4 % (24.0-44.0); MEAN CORPUSCULAR HEMOGLOBIN 27.4 pg (27.0-33.0); MEAN CORPUSCULAR HGB CONC 31.3 g/dl (32.0-36.5); MEAN CORPUSCULAR VOLUME 87.6 fl (80.0-96.0); MONO # 0.5 10^3/uL (0.0-0.8); MONO % 6.1 % (0.0-5.0); NEUTROPHILS # 5.6 10^3/uL (1.5-8.5); NEUTROPHILS % 68.9 % (36.0-66.0); PLATELET COUNT, AUTOMATED 380 10^3/uL (150-450); RED BLOOD COUNT 3.87 10^6/uL (4.00-5.40); WHITE BLOOD COUNT 8.1 10^3/uL (4.0-10.0)
[2020-01-18] MEDS ORDERED: ISOVUE-370 76% 100ML VIAL As Ordered ONE (18:23)
[2020-01-18] MEDS ORDERED: PANTOPRAZOLE 40MG VIAL (C9113 PER 1) IV ONE (18:30)
[2020-01-18 18:38] LABS: ALT/SGPT 26 U/L (12-78); BILIRUBIN,DIRECT < 0.1 MG/DL (0.0-0.2); BILIRUBIN,TOTAL 0.3 MG/DL (0.2-1.0); LIPASE 34 U/L (73-393); TOTAL PROTEIN 7.7 GM/DL (6.4-8.2)
--- NOTE | 2020-01-18 19:33 | REPVR ---
PROCEDURE INFORMATION: Exam: CT Abdomen And Pelvis With Contrast Exam date and time: 01/18/2020 6:31 PM Age: 45 years old Clinical indication: Abdominal pain; Localized; Left upper quadrant (luq); Additional info: Luq pain TECHNIQUE: Imaging protocol: Computed tomography of the abdomen and pelvis with intravenous contrast. Axial, coronal and sagittal reformatted images were created and reviewed. Radiation optimization: All CT scans at this facility use at least one of these dose optimization techniques: automated exposure control; mA and/or kV adjustment per patient size (includes targeted exams where dose is matched to clinical indication); or iterative reconstruction. Contrast material: ISOVUE 370; Contrast volume: 100 ml; Contrast route: INTRAVENOUS (IV); COMPARISON: CR HIPS BILAT W-AP PELVIS 06/25/2019 12:01 PM FINDINGS: Mediastinal space: Small hiatal hernia. Liver: Unremarkable. Gallbladder and bile ducts: No radiodense gallstones. No biliary ductal dilatation. Pancreas: Diffuse pancreatic atrophy. Spleen: Unremarkable. Adrenals: Unremarkable. Kidneys and ureters: No mass. No radiodense calculi. No hydronephrosis. Stomach and bowel: Moderate amount of retained stool in the colon. No obstruction. No bowel wall thickening. No pneumatosis. Appendix: Status post appendectomy. Intraperitoneal space: No free fluid. No organized fluid collection. No free air. Vasculature: Mild to moderate atherosclerotic disease. No aneurysm or dissection. IVC filter in place. Lymph nodes: No pathologically enlarged lymph nodes. Bladder: Mild circumferential urinary bladder wall thickening, likely secondary to underdistention. Reproductive: Status post hysterectomy. Bones/joints: No acute osseous abnormality. Osteopenia. Mild degenerative changes. Status post L4-L5 anterior/interbody fusion. Status post bilateral L4 and L5 laminectomies. Chronic partial T12, L1, L2 and L3 compression deformities. Soft tissues: Unremarkable. IMPRESSION: 1. No CT evidence of acute intra-abdominal or pelvic pathology. 2. Additional findings, as above. Electronically signed by: Brett Aguila On 01/18/2020 19:32:46 PM
[2020-01-18] MEDS ORDERED: CARA1TAB6 PO (19:54)
[2020-01-18] MEDS ORDERED: PANT40TA29 PO (19:54)
[2020-01-18 20:18] VITALS: BP 101/56
[2020-02-20] MEDS ORDERED: BASA100I SC (10:38)
[2020-02-20] MEDS ORDERED: ALEV1TAB PO (10:38)
[2020-03-12] MEDS ORDERED: OMEP-218 (12:53)
[2020-03-12] MEDS ORDERED: OMEP20TA17 (12:53)
[2020-03-12] MEDS ORDERED: BUDE10.22 (12:53)
[2020-03-12] MEDS ORDERED: ALBU8.5H (14:43)
== END 2020-01-18 20:20 | disposition home or self-care (01) ==
LOC: M ED 17:18
DX: R10.12 Left upper quadrant pain (principal); E11.9 Type 2 diabetes mellitus without complications; I10 Essential (primary) hypertension; E78.5 Hyperlipidemia, unspecified; F41.9 Anxiety disorder, unspecified; F32.9 Major depressive disorder, single episode, unspecified; K21.9 Gastro-esophageal reflux disease without esophagitis; F17.200 Nicotine dependence, unspecified, uncomplicated; Z88.1 Allergy status to other antibiotic agents; Z91.040 Latex allergy status; Z88.6 Allergy status to analgesic agent; Z88.8 Allergy status to other drugs, medicaments and biological substances
CPT/HCPCS: 36415; 74177; 80047; 80076; 81001; 83690; 85025; 96374; 99284; C9113; Q9967

== ENCOUNTER 2020-01-25 20:01 | Emergency (ER) | payer OTHER ==
[~2020-01-25] VITALS: Ht 160 cm; Wt 78.6 kg
[~2020-01-25 20:01] MED LIST changes: +ADME100I2 SC; +CARA1TAB6 PO; +INSULIN BASAGLAR SQ; +OMEP1CAP73 PO; +PANT40TA29 PO
[2020-01-25] MEDS ORDERED: PANT40TA29 PO (20:10)
[2020-01-25] MEDS ORDERED: SUCR1TA PO (20:10)
[2020-01-25] MEDS ORDERED: GI COCKTAIL 50ML BTL(HYOSCYAMINE/MAALOX/LIDOCAINE VISCOUS)(1:3:1) PO ONE (21:00)
[2020-01-25 21:33] LABS: BASO % 0.5 % (0.0-1.0); EOS # 0.1 10^3/uL (0.0-0.5); EOS % 0.9 % (0.0-3.0); HEMATOCRIT 31.1 % (36.0-47.0); LYMPH # 1.5 10^3/uL (1.5-5.0); LYMPH % 18.7 % (24.0-44.0); MEAN CORPUSCULAR HEMOGLOBIN 27.7 pg (27.0-33.0); MEAN CORPUSCULAR HGB CONC 32.2 g/dl (32.0-36.5); MEAN CORPUSCULAR VOLUME 86.1 fl (80.0-96.0); MONO # 0.5 10^3/uL (0.0-0.8); MONO % 6.1 % (0.0-5.0); NEUTROPHILS # 5.8 10^3/uL (1.5-8.5); NEUTROPHILS % 73.5 % (36.0-66.0); PLATELET COUNT, AUTOMATED 352 10^3/uL (150-450); RED BLOOD COUNT 3.61 10^6/uL (4.00-5.40); WHITE BLOOD COUNT 7.9 10^3/uL (4.0-10.0)
--- NOTE | 2020-01-25 22:01 | REPVR ---
PROCEDURE INFORMATION: Exam: XR Complete Acute Abdomen Series Exam date and time: 01/25/2020 9:28 PM Age: 45 years old Clinical indication: Abdominal pain; Acute TECHNIQUE: Imaging protocol: XR complete acute abdomen series, including 2 or more views of the abdomen and a single view chest. COMPARISON: 1. CR PORTABLE CHEST X-RAY 12/14/2018 3:[address] ABD/PEL W/IV CONTRAST ONLY 01/18/2020 6:27:09 PM FINDINGS: Lungs: Unremarkable. No consolidation. No pulmonary edema. Pleural space: Unremarkable. No pneumothorax or pleural effusion is identified. Heart/Mediastinum: Unremarkable. No cardiomegaly. Gastrointestinal tract: There is a moderate to large amount of stool in the ascending colon and transverse colon. No dilated loops of bowel are noted. No significant air-fluid levels are seen in the bowel. Intraperitoneal space: No free air is identified. Vasculature: An inferior vena cava filter is in place. Bones/joints: Postoperative changes are noted from a lumbar interbody fusion, laminectomy, and left facetectomy at the L4-L5 and L5-S1 levels. Soft tissues: Unremarkable. IMPRESSION: 1. Moderate to large amount of stool in the ascending colon and transverse colon. No radiographic evidence for a bowel obstruction. 2. No radiographic evidence for an acute cardiopulmonary process. Electronically signed by: Manoj Snyder On 01/25/2020 22:00:56 PM
[2020-01-25 22:07] LABS: ALBUMIN 3.8 GM/DL (3.2-5.2); ALT/SGPT 25 U/L (12-78); BILIRUBIN,DIRECT < 0.1 MG/DL (0.0-0.2); BILIRUBIN,TOTAL 0.2 MG/DL (0.2-1.0); BLOOD UREA NITROGEN 12 MG/DL (7-18); CALCIUM LEVEL 8.8 MG/DL (8.5-10.1); CARBON DIOXIDE LEVEL 24 MEQ/L (21-32); CHLORIDE LEVEL 109 MEQ/L (98-107); CREATININE FOR GFR 0.88 MG/DL (0.55-1.30); GLOMERULAR FILTRATION RATE > 60.0 (>58); GLUCOSE, FASTING 195 MG/DL (70-100); LIPASE 47 U/L (73-393); POTASSIUM SERUM 4.2 MEQ/L (3.5-5.1); SODIUM LEVEL 139 MEQ/L (136-145); TOTAL PROTEIN 6.9 GM/DL (6.4-8.2)
[2020-01-25] MEDS ORDERED: MAGNESIUM CITRATE 300 ML BTL PO ONE (22:30)
[2020-01-25 22:42] VITALS: BP 104/62
[2020-02-20] MEDS ORDERED: BASA100I SC (10:38)
[2020-02-20] MEDS ORDERED: ALEV1TAB PO (10:38)
[2020-03-12] MEDS ORDERED: OMEP-218 (12:53)
[2020-03-12] MEDS ORDERED: OMEP20TA17 (12:53)
[2020-03-12] MEDS ORDERED: BUDE10.22 (12:53)
[2020-03-12] MEDS ORDERED: ALBU8.5H (14:43)
== END 2020-01-25 22:43 | disposition home or self-care (01) ==
LOC: M ED 20:01
DX: K59.00 Constipation, unspecified (principal); E11.9 Type 2 diabetes mellitus without complications; I10 Essential (primary) hypertension; J45.909 Unspecified asthma, uncomplicated; F17.200 Nicotine dependence, unspecified, uncomplicated; Z79.4 Long term (current) use of insulin; Z79.899 Other long term (current) drug therapy; Z88.0 Allergy status to penicillin; Z88.6 Allergy status to analgesic agent; Z88.8 Allergy status to other drugs, medicaments and biological substances; Z91.040 Latex allergy status

== ENCOUNTER → 2020-02-21 | Outpatient (CLI) | payer OTHER ==
[~2020-02-21] MED LIST changes: +ALBU8.5H; +BUDE10.22; +CYCL-707 PO; +NAPR-837 PO; +OMEP-218; +OMEP20TA17; +SUCR1TA PO
== END ==
LOC: M LABSMTC 09:41
PROVIDERS: ATTEND Anesthesiology
DX: Z01.812 Encounter for preprocedural laboratory examination (principal); Z20.828 Contact with and (suspected) exposure to other viral communicable diseases
CPT/HCPCS: C9803; U0003

== ENCOUNTER → 2020-02-21 | Outpatient (CLI) | payer OTHER ==
[~2020-02-21] MED LIST changes: -CYCL-707 PO; -NAPR-837 PO
[2020-02-21 10:43] LABS: HEMOGLOBIN A1c 8.5 %
== END ==
LOC: M LAB 09:59
PROVIDERS: ATTEND Family Medicine
DX: E11.65 Type 2 diabetes mellitus with hyperglycemia (principal)

== ENCOUNTER 2020-02-26 10:53 | Day surgery (SDC) | payer OTHER ==
[~2020-02-26] VITALS: Ht 160 cm; Wt 80.3 kg
[~2020-02-26 10:53] MED LIST changes: -ALBU8.5H; -BUDE10.22; +HEPARIN SOD (PORCINE) 5000UNITS/ML 1ML VIAL/SYRINGE SQ ONE; +LR 1,000 ML IV ONE; -OMEP-218; -OMEP20TA17; +ceFAZolin SOD 2 GM in IV 1 EA IV ONE
[2020-02-26] MEDS ORDERED: propofoL 500 MG/50 ML VIAL As Ordered ONE (11:02)
[2020-02-26] MEDS ORDERED: MIDAZOLAM INJ 2MG/2ML VIAL (J2250 PER 1MG) As Ordered ONE (11:03)
[2020-02-26] MEDS ORDERED: fentaNYL 100 MCG/2 ML INJECTION (J3010) As Ordered ONE (11:04)
[2020-02-26] MEDS ORDERED: ceFAZolin 1GM VIAL (J0690 PER 500MG) As Ordered ONE (11:18)
[2020-02-26] MEDS ORDERED: LIDOCAINE 1% SDV 30ML VIAL As Ordered ONE (11:18)
[2020-02-26] MEDS ORDERED: dexameTHASONE 4 MG/ML 1ML VIAL (J1100 PER 1MG) As Ordered ONE (11:59)
[2020-02-26] MEDS ORDERED: ONDANSETRON 4MG/2ML VIAL As Ordered ONE (12:04)
[2020-02-26] MEDS ORDERED: KETAMINE HCL 200 MG/20 ML VIAL As Ordered ONE (12:38)
[2020-02-26] MEDS ORDERED: PHENYLephrine HCL 500 MCG/5 ML (100MCG/ML) SYRINGE (J2370) As Ordered ONE (12:40)
[2020-02-26] MEDS ORDERED: ePHEDrine SULFATE 25 MG/5 ML(5MG/ML) SYRINGE As Ordered ONE (12:51)
[2020-02-26 14:30] VITALS: BP 112/66
--- NOTE | 2020-02-26 15:32 | REP ---
INDICATION: INTERSTIM NEUROSTIM STAGE 1 PLACEMENT OF LEAD COMPARISON: None. TECHNIQUE: Intraoperative fluoroscopic imaging using portable C-arm technique FINDINGS: AP and lateral views demonstrate stimulator lead placement in the region of the lower sacrum. Total fluoroscopic time 58 seconds. IMPRESSION: Status post neurostimulator lead placement <Electronically signed by Enrique Krishnamurthy > 02/26/20 [id number]
--- NOTE | 2020-02-27 07:00 | RO ---
DATE OF OPERATION: 02/26/2020 PREOPERATIVE DIAGNOSIS: Incontinence. POSTOPERATIVE DIAGNOSIS: Incontinence. PROCEDURE: Stage 1 Neurostim on right side. SURGEON: Kim Madera MD CONSULTANT INTERNSHIP: None. ANESTHESIA: Sedation and local. BRIEF DESCRIPTION OF PROCEDURE AND FINDINGS: Juventino was brought to the operating room where sufficient sedation was given. She was prepped and draped and positioned in the usual fashion prone for this procedure with x-ray with C-arm in place. After patient identification, etc, we measured out the typical measurements from the tailbone to the estimated location of the 3rd sacral foramen and at the patients request we started on the right side because that was her preference due to how she sleeps. There was some evidence by palpation with the needle of a little bit of calcification at the foramen but with patience the needle did pass but then on x-ray, despite the fact that we had followed the typical measurements, it was quite clear that we were at 2 and not 4 and testing confirmed this from ankle movements, etc. We went ahead and used that needle as a means of localizing the tract and went down lower with considerable effort management to place the needle to 3 but it was angling medial to lateral more severely than preferred and got virtually no response for jairo and so despite her preference we went ahead and tried on the left side and did not get any response until fairly high numbers and again no toe response at all. We went back to the right side and replaced the needle with what appeared to be a better angle so we were able to pass then with better angle through toward the medial aspect of 3rd foramen and then testing on this showed adequate response, although a little higher numbers than my preference but we really had nothing on the other side and so I felt that this was probably the best response we were going to get and certainly this is not a shock given that the patient has had previous spinal surgery, already has an implant in place as can be seen on the x-rays for other spinal issues and of course has these incontinence problems. So we went ahead and using this placement placed the tined lead and then prior to dispatching the prongs we tested that again and had very good response, even as low as 0.35 so quite good response with the actual lead despite the mediocre response on the needle. X-rays do show that despite my efforts to angle it laterally that the curve of the actual lead is more medial but absolutely tried to get it to follow laterally and we had good tests so we did deploy there and idris it out to the site for the future implant and then bringing the lead up through that wound, connected the extension and burrowed out to the flank to exit the skin for the extension all in the usual fashion and then put two layer closure on the site for the future pocket and then closed the skin and dry, sterile dressings were applied. Estimated blood loss for the whole of the procedure is maybe 1 mL. Fluid replacement was Crystalloid. No complications. CONDITION AND DISPOSITION: Angle tolerated the procedure well and was recovering in the recovery room in good condition. LORETTA
[2020-03-12] MEDS ORDERED: BUDE10.22 (12:53)
[2020-03-12] MEDS ORDERED: OMEP-218 (12:53)
[2020-03-12] MEDS ORDERED: OMEP20TA17 (12:53)
[2020-03-12] MEDS ORDERED: ALBU8.5H (14:43)
== END 2020-02-26 14:50 | disposition home or self-care (01) ==
LOC: M SDC 10:53
PROVIDERS: ATTEND Obstetrics & Gynecology
DX: R32 Unspecified urinary incontinence (principal); E10.9 Type 1 diabetes mellitus without complications; I10 Essential (primary) hypertension; I73.9 Peripheral vascular disease, unspecified; J45.909 Unspecified asthma, uncomplicated; E03.9 Hypothyroidism, unspecified; K21.9 Gastro-esophageal reflux disease without esophagitis; F41.9 Anxiety disorder, unspecified; R94.31 Abnormal electrocardiogram [ECG] [EKG]; F17.218 Nicotine dependence, cigarettes, with other nicotine-induced disorders; Z79.4 Long term (current) use of insulin; Z79.899 Other long term (current) drug therapy; Z88.0 Allergy status to penicillin; Z88.2 Allergy status to sulfonamides; Z88.5 Allergy status to narcotic agent; E66.09 Other obesity due to excess calories
CPT/HCPCS: 64581; 76000; C1778; C1883; C1894; J0690; J1100; J1644; J2250; J2370; J2405; J3010

== ENCOUNTER → 2020-02-28 | Outpatient (CLI) | payer OTHER ==
[~2020-02-28] MED LIST changes: +ALBU8.5H; +BUDE10.22; -HEPARIN SOD (PORCINE) 5000UNITS/ML 1ML VIAL/SYRINGE SQ ONE; -LR 1,000 ML IV ONE; +OMEP-218; +OMEP20TA17; -ceFAZolin SOD 2 GM in IV 1 EA IV ONE
== END ==
LOC: M LABSMTC 09:18
PROVIDERS: ATTEND Anesthesiology
DX: Z01.812 Encounter for preprocedural laboratory examination (principal); Z20.828 Contact with and (suspected) exposure to other viral communicable diseases
CPT/HCPCS: C9803; U0003

== ENCOUNTER 2020-03-04 14:30 | Day surgery (SDC) | payer OTHER ==
[~2020-03-04] VITALS: Ht 160 cm; Wt 80.3 kg
[~2020-03-04 14:30] MED LIST changes: -ALBU8.5H; -BUDE10.22; +HEPARIN SOD (PORCINE) 5000UNITS/ML 1ML VIAL/SYRINGE SQ ONE; +LIDOCAINE 1% MDV 20ML VIAL SQ PRN; +LR 1,000 ML IV ONE; -OMEP-218; -OMEP20TA17; +ceFAZolin SOD 2 GM in IV 1 EA IV ONE
[2020-03-04] MEDS ORDERED: HumaLOG INSULIN (NovoLOG) PER UNIT SC SCH (16:00)
[2020-03-04] MEDS ORDERED: MIDAZOLAM INJ 2MG/2ML VIAL (J2250 PER 1MG) As Ordered ONE (16:09)
[2020-03-04] MEDS ORDERED: propofoL 200 MG/20 ML VIAL As Ordered ONE (16:09)
[2020-03-04] MEDS ORDERED: LIDOCAINE 2% 100MG/5ML SDV (FOR ANES.) As Ordered ONE (16:09)
[2020-03-04] MEDS ORDERED: fentaNYL 100 MCG/2 ML INJECTION (J3010) As Ordered ONE (16:09)
[2020-03-04] MEDS ORDERED: ROCURONIUM BROMIDE 50 MG/5 ML VIAL As Ordered ONE (16:48)
[2020-03-04] MEDS ORDERED: LIDOCAINE 1% SDV 30ML VIAL As Ordered ONE (16:49)
[2020-03-04] MEDS ORDERED: ceFAZolin 1GM VIAL (J0690 PER 500MG) As Ordered ONE (17:14)
[2020-03-04] MEDS ORDERED: ONDANSETRON 4MG/2ML VIAL As Ordered ONE (19:06)
[2020-03-04 20:10] VITALS: BP 129/80
--- NOTE | 2020-03-05 11:13 | RO ---
DATE OF OPERATION: 03/04/2020 PREOPERATIVE DIAGNOSIS/INDICATIONS FOR SURGERY: This patient had a successful stage I InterStim. She had insurance issues for the implant so decision was made to remove the extension in this diabetic patient who clearly cannot have that staying but leave the lead pending future insurance approval. POSTOPERATIVE DIAGNOSIS: This patient had a successful stage I InterStim. She had insurance issues for the implant so decision was made to remove the extension in this diabetic patient who clearly cannot have that staying but leave the lead pending future insurance approval. PROCEDURE: Removal of Neurostim extensions. SURGEON: Kim Madera MD ANESTHESIA: Sedation and local. BRIEF DESCRIPTION OF PROCEDURE AND FINDINGS: Juvention was brought to the operating room where sufficient sedation and local was given. She was placed prone, as is typical, and prepped in the usual fashion. Then, also injected lidocaine 1% at the wound and left that set up; and following this, incised the previous wound over the extension, lifted the extension out, confirmed the end that was exiting and we left the cover over the lead that is screwed on in place so that it would protect it so that in the future we just have to screw that off and put the actual implant over it rather than leaving the lead naked. So that portion we left on and then just trimmed the cable beyond that and then removed the extension, put the lead itself back into the pocket where it was previously, secured that with a deep layer of 2-0 Vicryl and then a skin layer of 3-0 Vicryl with good approximation and hemostasis in that skin subcuticular stitch and then dry, sterile dressings were applied. We also removed the suture from lead placement over the sacrum and the suture that had secured the extension at its exit wound. Those wounds are already healed, and the procedure was then ended. ESTIMATED BLOOD LOSS FOR THE PROCEDURE: Maybe 1 mL. FLUID REPLACEMENT: Crystalloid. COMPLICATIONS: None. CONDITION AND DISPOSITION: Juventino tolerated the procedure well and was recovering in the recovery room in good condition. LORETTA
[2020-03-12] MEDS ORDERED: BUDE10.22 (12:53)
[2020-03-12] MEDS ORDERED: OMEP-218 (12:53)
[2020-03-12] MEDS ORDERED: OMEP20TA17 (12:53)
[2020-03-12] MEDS ORDERED: ALBU8.5H (14:43)
== END 2020-03-04 20:24 | disposition home or self-care (01) ==
LOC: M SDC 14:30 → EEVIPCON 16:30 → M SDC 20:24
PROVIDERS: ATTEND Obstetrics & Gynecology
DX: Z45.42 Encounter for adjustment and management of neurostimulator (principal); I10 Essential (primary) hypertension; E11.9 Type 2 diabetes mellitus without complications; E03.9 Hypothyroidism, unspecified; F41.9 Anxiety disorder, unspecified; E78.5 Hyperlipidemia, unspecified; Z79.4 Long term (current) use of insulin; Z79.899 Other long term (current) drug therapy; Z88.0 Allergy status to penicillin; Z88.2 Allergy status to sulfonamides; Z88.5 Allergy status to narcotic agent; Z91.040 Latex allergy status
CPT/HCPCS: 64585; J0690; J1644; J2250; J2405; J3010

== ENCOUNTER 2020-03-14 11:19 | Emergency (ER) | payer OTHER ==
[~2020-03-14] VITALS: Ht 160 cm; Wt 87.5 kg
[~2020-03-14 11:19] MED LIST changes: -CYCL-707 PO; -NAPR-837 PO
[2020-03-14 12:54] LABS: BASO % 0.5 % (0.0-1.0); EOS # 0.1 10^3/uL (0.0-0.5); EOS % 0.9 % (0.0-3.0); HEMATOCRIT 36.4 % (36.0-47.0); HEMOGLOBIN 10.9 g/dl (12.0-15.5); LYMPH # 1.5 10^3/uL (1.5-5.0); LYMPH % 22.9 % (24.0-44.0); MEAN CORPUSCULAR HEMOGLOBIN 25.2 pg (27.0-33.0); MEAN CORPUSCULAR HGB CONC 29.9 g/dl (32.0-36.5); MEAN CORPUSCULAR VOLUME 84.3 fl (80.0-96.0); MONO # 0.5 10^3/uL (0.0-0.8); MONO % 7.4 % (0.0-5.0); NEUTROPHILS # 4.4 10^3/uL (1.5-8.5); PLATELET COUNT, AUTOMATED 394 10^3/uL (150-450); RED BLOOD COUNT 4.32 10^6/uL (4.00-5.40); WHITE BLOOD COUNT 6.5 10^3/uL (4.0-10.0)
--- NOTE | 2020-03-14 13:13 | REP ---
INDICATION: R/O DVT. COMPARISON: None. TECHNIQUE: Duplex venous ultrasound is performed in the right lower extremity. FINDINGS: The deep veins are anechoic and fully compressible from the groin to the popliteal fossa in the right lower extremity. Color flow imaging is homogeneous. Spectral Doppler interrogation demonstrates intact respiratory variation in flow and normal manual augmentation of flow. There is no evidence of deep vein thrombosis. IMPRESSION: Negative right lower extremity duplex venous ultrasound. No evidence of deep vein thrombosis. <Electronically signed by Alan Ramirez > 03/14/20 [id number]
[2020-03-14] MEDS ORDERED: KETOROLAC TROMETHAMINE 10 MG TAB PO ONE (13:15)
[2020-03-14 13:26] LABS: ERYTHROCYTE SEDIMENTATION RATE 46 mm/hr (0-20)
[2020-03-14 13:27] LABS: ALBUMIN 3.8 GM/DL (3.2-5.2); ALT/SGPT 26 U/L (12-78); BILIRUBIN,DIRECT < 0.1 MG/DL (0.0-0.2); BILIRUBIN,TOTAL 0.2 MG/DL (0.2-1.0); C REACTIVE PROTEIN QUANTITATIV 1.15 MG/DL (0.00-0.30); TOTAL PROTEIN 7.1 GM/DL (6.4-8.2)
[2020-03-14 13:53] VITALS: BP 122/76
== END 2020-03-14 13:59 | disposition home or self-care (01) ==
LOC: M ED 11:19
DX: M79.604 Pain in right leg (principal); E11.9 Type 2 diabetes mellitus without complications; I10 Essential (primary) hypertension; E78.5 Hyperlipidemia, unspecified; K21.9 Gastro-esophageal reflux disease without esophagitis; J45.909 Unspecified asthma, uncomplicated; E03.9 Hypothyroidism, unspecified; M54.9 Dorsalgia, unspecified; Z86.718 Personal history of other venous thrombosis and embolism; F17.200 Nicotine dependence, unspecified, uncomplicated; Z88.1 Allergy status to other antibiotic agents; Z88.2 Allergy status to sulfonamides; Z88.6 Allergy status to analgesic agent; Z91.040 Latex allergy status; Z79.4 Long term (current) use of insulin; Z79.51 Long term (current) use of inhaled steroids; Z79.899 Other long term (current) drug therapy

== ENCOUNTER → 2020-03-14 | Outpatient (CLI) | payer OTHER ==
[~2020-03-14] MED LIST changes: +ALBU8.5H; +BUDE10.22; +CYCL-707 PO; -HEPARIN SOD (PORCINE) 5000UNITS/ML 1ML VIAL/SYRINGE SQ ONE; -LIDOCAINE 1% MDV 20ML VIAL SQ PRN; -LR 1,000 ML IV ONE; +NAPR-837 PO; +OMEP-218; +OMEP20TA17; -ceFAZolin SOD 2 GM in IV 1 EA IV ONE
== END ==
LOC: M LABSMTC 11:04
PROVIDERS: ATTEND Anesthesiology
DX: Z01.812 Encounter for preprocedural laboratory examination (principal); Z20.828 Contact with and (suspected) exposure to other viral communicable diseases
CPT/HCPCS: C9803; U0003

== ENCOUNTER 2020-03-19 06:50 | Day surgery (SDC) | payer OTHER ==
[~2020-03-19] VITALS: Ht 160 cm; Wt 82.0 kg
[2020-03-19] MEDS ORDERED: NS 1,000 ML IV ONE (07:00)
[2020-03-19] MEDS ORDERED: propofoL 200 MG/20 ML VIAL As Ordered ONE (07:06)
[2020-03-19] MEDS ORDERED: LIDOCAINE 2% 100MG/5ML SDV (FOR ANES.) As Ordered ONE (07:06)
[2020-03-19] MEDS ORDERED: fentaNYL 100 MCG/2 ML INJECTION (J3010) As Ordered ONE (07:09)
--- NOTE | 2020-03-19 08:08 | ROOR ---
Patient Name: Juventino Maier Procedure Date: 03/19/2020 7:41 AM Date of : 1975 Age: 45 Room: [facility] Gender: Female Note Status: Finalized Procedure: Upper GI endoscopy Indications: Abdominal pain in the left upper quadrant, Unexplained iron deficiency anemia, Heartburn Providers: Jesus Johnson MD Referring MD: [facility], Admin., Francisco Recio Do Requesting Provider: Medicines: Monitored Anesthesia Care Complications: No immediate complications. Procedure: Pre-Anesthesia Assessment: - Prior to the procedure, a History and Physical was performed, and patient medications and allergies were reviewed. The patient is competent. The risks and benefits of the procedure and the sedation options and risks were discussed with the patient. All questions were answered and informed consent was obtained. Patient identification and proposed procedure were verified by the physician, the nurse and the anesthesiologist in the procedure room. Mental Status Examination: alert and oriented. Airway Examination: normal oropharyngeal airway and neck mobility. Respiratory Examination: clear to auscultation. CV Examination: normal. Prophylactic Antibiotics: The patient does not require prophylactic antibiotics. Prior Anticoagulants: The patient has taken no previous anticoagulant or antiplatelet agents. ASA Grade Assessment: II - A patient with mild systemic disease. After reviewing the risks and benefits, the patient was deemed in satisfactory condition to undergo the procedure. The anesthesia plan was to use monitored anesthesia care (MAC). Immediately prior to administration of medications, the patient was re-assessed for adequacy to receive sedatives. The heart rate, respiratory rate, oxygen saturations, blood pressure, adequacy of pulmonary ventilation, and response to care were monitored throughout the procedure. The physical status of the patient was re-assessed after the procedure. The Endoscope was introduced through the mouth, and advanced to the body of the stomach. The upper GI endoscopy was accomplished without difficulty. The patient tolerated the procedure well. Findings: The examined esophagus was normal. The Z-line was irregular and was found in the distal esophagus. A large amount of food (residue) was found in the gastric fundus, in the gastric body and in the gastric antrum. Procedure was aborted due to large amount of food in stomach. Impression: - Normal esophagus. - Z-line irregular, in the distal esophagus. - A large amount of food (residue) in the stomach. - No specimens collected. Recommendation: - Patient has a contact number available for emergencies. The signs and symptoms of potential delayed complications were discussed with the patient. Return to normal activities tomorrow. Written discharge instructions were provided to the patient. - Resume previous diet. - Continue present medications. - Repeat upper endoscopy in 3 months because the preparation was poor. - Return to GI clinic in [facility] (address [address], [address] [address]) in 4 -- 6 weeks. Please call GI clinic @ [phone] for apppointment date and time. - Return to primary care physician. Jesus Johnson MD Jesus Johnson MD 03/19/2020 8:08:18 AM Electronically signed by Jesus Johnson MD Number of Addenda: 0 Note Initiated On: 03/19/2020 7:41 AM Estimated Blood Loss: Estimated blood loss: none.
[2020-03-19 08:20] VITALS: BP 98/60
== END 2020-03-19 08:32 | disposition home or self-care (01) ==
LOC: M OPP 06:50
PROVIDERS: ATTEND Internal Medicine Gastroenterology
DX: K22.8 Other specified diseases of esophagus (principal); R10.12 Left upper quadrant pain; D50.9 Iron deficiency anemia, unspecified; R12 Heartburn; E11.9 Type 2 diabetes mellitus without complications; F17.210 Nicotine dependence, cigarettes, uncomplicated; Z80.0 Family history of malignant neoplasm of digestive organs; Z79.4 Long term (current) use of insulin; Z79.899 Other long term (current) drug therapy; Z88.0 Allergy status to penicillin; Z88.2 Allergy status to sulfonamides; Z88.5 Allergy status to narcotic agent; Z91.040 Latex allergy status
CPT/HCPCS: 43235; J3010

== ENCOUNTER 2020-03-21 19:46 | Emergency (ER) | payer OTHER ==
[~2020-03-21] VITALS: Ht 160 cm; Wt 81.8 kg
[2020-03-21] MEDS ORDERED: LIDOCAINE 4% CREAM 5GM (LMX4) TOP ONE (21:00)
[2020-03-21] MEDS ORDERED: traMADol 50 MG TAB PO ONE (21:00)
[2020-03-21 21:19] LABS: BASO % 0.5 % (0.0-1.0); EOS # 0.1 10^3/uL (0.0-0.5); EOS % 1.3 % (0.0-3.0); HEMATOCRIT 33.1 % (36.0-47.0); HEMOGLOBIN 10.2 g/dl (12.0-15.5); LYMPH # 2.1 10^3/uL (1.5-5.0); LYMPH % 26.1 % (24.0-44.0); MEAN CORPUSCULAR HEMOGLOBIN 25.4 pg (27.0-33.0); MEAN CORPUSCULAR HGB CONC 30.8 g/dl (32.0-36.5); MEAN CORPUSCULAR VOLUME 82.5 fl (80.0-96.0); MONO # 0.6 10^3/uL (0.0-0.8); MONO % 7.2 % (0.0-5.0); NEUTROPHILS # 5.1 10^3/uL (1.5-8.5); NEUTROPHILS % 64.8 % (36.0-66.0); PLATELET COUNT, AUTOMATED 368 10^3/uL (150-450); RED BLOOD COUNT 4.01 10^6/uL (4.00-5.40); WHITE BLOOD COUNT 7.9 10^3/uL (4.0-10.0)
[2020-03-21 21:39] LABS: ERYTHROCYTE SEDIMENTATION RATE 58 mm/hr (0-20)
--- NOTE | 2020-03-21 22:33 | REPVR ---
PROCEDURE INFORMATION: Exam: XR Right Tibia and Fibula Exam date and time: 03/21/2020 9:11 PM Age: 45 years old Clinical indication: Pain; Lower leg; Right; Additional info: Rle lateral pain TECHNIQUE: Imaging protocol: XR Right tibia and fibula. Views: 2 views. COMPARISON: No relevant prior studies available. FINDINGS: Bones/joints: Relatively hypodense bones indicating osteopenia. Soft tissues: Normal. Vasculature: Popliteal artery calcifications. IMPRESSION: No acute osseous abnormality. Electronically signed by: Seth Blas On 03/21/2020 22:32:20 PM
[2020-03-21] MEDS ORDERED: CYCL-707 PO (22:37)
[2020-03-21] MEDS ORDERED: NAPR-837 PO (22:37)
[2020-03-21] MEDS ORDERED: CYCLOBENZAPRINE 10MG TABLET PO ONE (22:45)
[2020-03-21 22:48] VITALS: BP 120/80
== END 2020-03-21 22:52 | disposition home or self-care (01) ==
LOC: M ED 19:46
DX: M79.604 Pain in right leg (principal); F17.200 Nicotine dependence, unspecified, uncomplicated; J45.909 Unspecified asthma, uncomplicated; I10 Essential (primary) hypertension; E78.5 Hyperlipidemia, unspecified; Z88.0 Allergy status to penicillin; Z88.1 Allergy status to other antibiotic agents; Z88.5 Allergy status to narcotic agent; Z88.6 Allergy status to analgesic agent; Z91.040 Latex allergy status

== ENCOUNTER → 2020-05-30 | Outpatient (CLI) | payer OTHER ==
[~2020-05-30] MED LIST changes: -ALBU8.5H; +ALBU8.5H INH; -BUDE10.22; +BUDE10.22 INH; +CYCL-707 PO; +INSU100I28 SC; +NAPR-837 PO
== END ==
LOC: M LABSMTC 08:14
PROVIDERS: ATTEND Anesthesiology
DX: Z01.812 Encounter for preprocedural laboratory examination (principal); Z20.822 Contact with and (suspected) exposure to COVID-19

== ENCOUNTER 2020-06-04 09:49 | Day surgery (SDC) | payer OTHER ==
[~2020-06-04] VITALS: Ht 160 cm; Wt 80.7 kg
[~2020-06-04 09:49] MED LIST changes: +LIDOCAINE 2% 100MG/5ML SDV (FOR ANES.) As Ordered ONE; -LISI-538 PO; +LISI20TA33 PO; +NS 1,000 ML IV ONE; +propofoL 200 MG/20 ML VIAL As Ordered ONE
--- OUTSIDE RECORDS SUMMARY | 2020-06-04 09:58 | CCD | Continuity of Care Document ---
Author Author Holter/Event/Telemetry, Tammie cueva Organization Unknown Address [address] [place] [address], [place] [address] Phone [phone] Care Team Providers Care Anvilsmith Name Role Phone Francisco Recio DO AUTM [phone] Kim Madera MD AUTM [phone] Problems Active Problems Provider Date Obesity Seth Garcia MD Onset: 02/24/2020 Dietary management surveillance Seth Garcia MD Onset: 02/24/2020 Electrocardiogram abnormal Seth Garcia MD Onset: 02/23 Essential hypertension Seth Garcia MD Onset: 0 Preoperative cardiovascular examination Seth Garcia MD Onset: 02/24/2020 Tobacco user Seth Garcia MD Onset: 02/24/2020 Counseling about tobacco use Seth Garcia MD Onset: Palpitations Seth Garcia MD Onset: 02/24/2020 Social History Type Date Description Comments Sex Unknown ETOH Use Occasionally consumes alcohol Tobacco Use Start: Unknown Patient is a current smoker, smo kes every day started at age 14, at most 1/2 ppd Smoking Status Reviewed: 02/24/20 Patient is a current smoker, smokes every day started at age 14, at most 1/2 ppd Exercise Type/Frequency Walks daily 1-1.5 ho urs at a time Exercise Type/Frequency Does housework daily Exercise Limitations Back Pain Allergies, Adverse Reactions, Alerts Active Allergies Reaction Severity Comments Date Penicillins 02/24/2020 Morphine Anaphylaxis 02/24/2020 Hydrocodone Ithcing 02/24/2020 Oxycodone Itching 02/24/2020 Sulfa Itching 02/24/2020 Latex 02/24/2020 Medications Active Medications SIG Qnty Indications Ordering Provide r Date Levothyroxine Sodium 200mcg Tablet s 1 by mouth every day Unknown 02/23/2020 Sucralfate 1gm Tablets 1 by mouth four times a day Unknown 02/23/2020 Lisinopril 20mg Tablets 1 by mouth every day Unknown 02/23/2020 Pantoprazole Sodium 40mg Tablets D R 1 by mouth every day Unknown 02/23/2020 Amlodipine Besylate 10mg Tablets 1 by mouth every day Unknown 02/23/2020 Admelog 100Unit/ML Solution inject as directed on sliding scale Unknown 2019 Basaglar Kwikpen 100 Unit/ML Solution Pen-Inject inject as directed Unknown 0 Aleve 220mg Tablets 1 twice a day when necessary Unknown 02/23/2020 Immunizations Description No Information Available Vital Signs Date Vital Result Comment 02/24/2020 12:39pm Weight 177.00 lb Height 63 inches 5'3" BMI (Body Mass Index) 31.4 kg/m2 Heart Rate 58 /min BP Systolic Sitting 115 mmHg Omron, adult cuff/Ra BP Diastolic Sitting 77 mmHg Omron, adult cuff/R a Results Description No Information Available Procedures Date Code Description Status 04/23/2020 24504 Holter Monitor MD Review And Rep ort Completed 04/23/2020 99741 Holter Hookup,Recording,Disconne ct Completed 04/16/2020 81619 Echocardiogram 2-D Doppler Color Completed 02/24/2020 22385 ECG 12-Lead Completed Medical Devices Description No Information Available Encounters Type Date Location Provider Dx Diagnosis Office Visit 02/24/2020 12:30p Main Office Seth Garcia MD R00.2 Palpitations I10 Essential (primary) hyperten vashti R94.31 Abnormal electrocardiogram [ ECG] [EKG] Z01.810 Encounter for preprocedural cardiovascular examination E66.09 Other obesity due to excess calories F17.210 Nicotine dependence, cigaret roscoe, uncomplicated Z87.891 Personal history of nicotine dependence Z71.6 Tobacco abuse counseling Z71.3 Dietary counseling and surve illance Assessments Date Code Description Provider 04/23/2020 R00.2 Palpitations Holter/Event/Tel emetry 04/16/2020 R94.31 Abnormal electrocardiogram [ECG] [EKG] ECHO 02/24/2020 R00.2 Palpitations Seth Garcia MD 02/24/2020 I10 Essential (primary) hypertension Seth Garcia MD 02/24/2020 R94.31 Abnormal electrocardiogram [ECG] [EKG] Seth Garcia MD 02/24/2020 Z01.810 Encounter for preprocedural card iovascular examination Seth Garcia MD 02/24/2020 E66.09 Other obesity due to excess avelino gordo Seth Garcia MD 02/24/2020 F17.210 Nicotine dependence, cigarettes, uncomplicated Seth Garcia MD 02/24/2020 Z87.891 Personal history of nicotine dep endence Seth Garcia MD 02/24/2020 Z71.6 Tobacco abuse counseling Seth Garcia MD 02/24/2020 Z71.3 Dietary counseling and surveilla nce Seth Garcia MD Plan of Treatment 02/24/2020 - Seth Garcia MD* R00.2 Palpitations* Recommendations:* 24-hour Holter monitor * I10 Essential (primary) hypertension* Recommendations:* Continue lisinopril and amlodipine at the current dosages. * R94.31 Abnormal electrocardiogram [ECG] [EKG]* Recommendations:* Echocardiogram-Doppler * Z01.810 Encounter for preprocedural cardiovascular examination* Recommendations:* Patient has preoperative cardiac clearance to undergo bladder suspension surgery. FYI: It is not mandatory that the patient complete the echocardiogram Doppler and Holter monitor prior to undergoing surgery. * E66.09 Other obesity due to excess calories* Recommendations:* LOW FAT, WHOLE- FOOD, PLANT-BASED DIET - Include fruits, vegetables, intact whole grains, beans & legumes; especially green leafy vegetables, cruciferous vegetables (e.g., broccoli, kale, cauliflower, brussel sprouts, cabbage), turmeric, ground flaxseeds - Avoid animal products (meat, poultry, fish, dairy products, eggs) - Avoid processed foods (added sugar, high fructose corn syrup, oil, salt) - Low Fat (8-12% of total calories) - No liquid oils, margarine, shortening, butter, lard, mayonnaise. - No trans-fats (partially hydrogenated oils). - No alcohol - No artificial sweeteners - B12 supplement if completely vegan and not on adequate amounts of B12 fortified foods - Non-GMO preferred - Avoid artificial food colors - No fish oil LOW SODIUM - Target total daily sodium 0537-1314 mg /d [do not go below 2300 mg/d] - No added salt. - Rule of thumb : Strive for sodium/calorie ratio less than or equal to 1.0 EATING HABITS - Stop eating when you reach satiety. - Avoid liquid calories (eat your calories, don't drink your calories). - Avoid restaurants EXERCISE ADVICE (General exercise advice; depends on health conditions) Cardio: Walking or equivalent aerobic activity for 40-60 minutes at least 5 times a week and preferably everyday. Resistance training 20-30 minutes, at least 2-3 times per week * F17.210 Nicotine dependence, cigarettes, uncomplicated* Recommendations:* Patient was strongly encouraged to quit smoking. Health hazards of tobacco use were reviewed with the patient including, but not all-inclusive: COPD, lung cancer, atherosclerotic disease such as carotid artery disease, CAD, and PAD. Patient prefers to quit smoking on their own and does not wish to be on smoking cessation pharmacotherapy. Time spent on smoking cessation counseling was 3-10 minutes. * Z87.891 Personal history of nicotine dependence * Z71.6 Tobacco abuse counseling * Z71.3 Dietary counseling and surveillance * All * Follow up:* Further follow-up, if any, depending upon results of cardiac testing. Functional Status Functional Condition Comment Date Status Independent with all ADL's Activ e Mental Status Description No Information Available Referrals Refer to Reason for Referral Status Appt Date Seth Garcia MD echo auth emr-expires 07/04/20. ca Created [address] [facility] [address] [phone]
--- OUTSIDE RECORDS SUMMARY | 2020-06-04 09:58 | CCD | Continuity of Care Document ---
Author Author Juventino ROBB MD Organization Unknown Address [address] [place] [address] , [facility] [address] [place] [address] Phone [phone] Care Team Providers Care Outboard Motorboat Operator Name Role Phone AUTM Unavailable Francisco Recio D.O. AUTM [phone] Francisco Recio D.O. AUTM [phone] AUTM Unavailable Chris Pina M.D. AUTM Problems Active Problems Provider Date Essential hypertension Davie Starks MD Onset: 12/27/2018 Gastroesophageal reflux disease Davie Starks MD Onset: 0 12/27/2018 Dysphagia Davie Starks MD Onset: 12/27/2018 Heavy cigarette smoker (20-39 cigs/day) Davie Starks MD Onset: 12/27/2018 Social History Type Date Description Comments Sex Unknown ETOH Use 2 A Month Tobacco Use Start: Unknown Smokes 1/2 Pack A Day Tobacco Use Start: Unknown Report Cessation Counseling Was Provided Allergies, Adverse Reactions, Alerts Active Allergies Reaction Severity Comments Date Penicillin G 12/27/2018 Morphine 12/27/2018 Hydrocodone 12/27/2018 Oxycodone 12/27/2018 Latex 12/27/2018 Sulfa 01/22/2020 Medications Active Medications SIG Qnty Indications Ordering Provide r Date Miralax 17GM/Scoop Powder use as instructed by doctor for bowel prep 510gm D64.9 Seth Royal MD 04/30/[address] take 4 tabs by mouth prior to procedure per instructions. 4tabs D64.9 Seth Royal MD 04/30/2020 Amlodipine Besylate 10mg Tablets Take One Tablet By Mouth Every Day AT Bedtime Unknown Admelog Solostar 100 Unit/ML Solution Pen-Inject Inect Under The Skin Per Sliding Scale B efore Meals Maximum Daily Dose 24Units Unknown Lisinopril 20mg Tablets Take One Tablet By Mouth daily Unknown Basaglar Kwikpen 100 Unit/ML Solution Pen-Inject 69 units daily with parameters Unknown Levothyroxine Sodium 200mcg Tablet s 1 by mouth every day Unknown Aleve PM 220-25mg Tablets 2 a t hs Unknown Sucralfate 1gm Tablets take 1 tablet by mouth 30 minutes prior to meals and AT bedtime 120tabs D tania Royal MD Pantoprazole Sodium 40mg Tablets D R Take One Tablet By Mouth Every Day 30tabs Seth Royal MD 0 Immunizations Description No Information Available Vital Signs Date Vital Result Comment 05/28/2020 9:20am Body Temperature 97.8 F Height 63 inches 5'3" Weight 181.00 lb BMI (Body Mass Index) 32.1 kg/m2 Bureau Body Weight 115 lb Weight 82.102 kg BSA (Body Surface Area) 1.85 m2 04/30/2020 9:38am BP Systolic 118 mmHg BP Diastolic 78 mmHg Height 63 inches 5'3" Weight 180.00 lb BMI (Body Mass Index) 31.9 kg/m2 Bureau Body Weight 115 lb Weight 81.648 kg BSA (Body Surface Area) 1.85 m2 Results Test Acquired Date Facility Test Result H/L Range Note Laboratory test finding 03/19/2020 [facility] [address] [place], [place] [id number] [phone] Bedside Glucose 118 mg/dL High 70-105 Procedures Date Code Description Status 03/19/2020 02838 Endoscopy Upper GI Complex Diagn ostic Completed Medical Devices Description No Information Available Encounters Type Date Location Provider Dx Diagnosis Office Visit 04/30/2020 9:30a [facility] ENT[facility]GI [facility] Betty Tinajero, RPA-C R10.12 Left upper quadrant pain K21.9 Gastro-esophageal reflux dis ease without esophagitis D64.9 Anemia, unspecified K59.00 Constipation, unspecified Office Visit 03/23/2020 10:30a [facility] Orthopedics MD Armin Car79.661 Pain in right lower leg Office Visit 01/22/2020 9:00a [facility] ENT[facility]GI Practice Betty ssa A Charlebois, [facility] R10.12 Left upper quadrant pain K21.9 Gastro-esophageal reflux dis ease without esophagitis D64.9 Anemia, unspecified K59.00 Constipation, unspecified Assessments Date Code Description Provider 04/30/2020 R10.12 Left upper quadrant pain Dinora A Charlebois, [facility] 04/30/2020 K21.9 Gastro-esophageal reflux disease without esophagitis Dinora A Charlebois, RPA-C 04/30/2020 D64.9 Anemia, unspecified Dinora A Ch arlebois, [facility] 04/30/2020 K59.00 Constipation, unspecified Meliss a A Charlebois, [facility] 03/23/2020 M79.661 Pain in right lower leg José jackson MD 03/19/2020 R10.12 Left upper quadrant pain Ta Johnson M.D. 03/19/2020 K22.8 Other specified diseases of esop hagus Jesus Johnson M.D. 03/19/2020 D50.9 Iron deficiency anemia, unspecif ied Jesus Johnson M.D. 03/19/2020 R12 Heartburn Jesus Díaz ala, M.D. 01/22/2020 R10.12 Left upper quadrant pain Dinora A Charlebois, [facility] 01/22/2020 K21.9 Gastro-esophageal reflux disease without esophagitis Dinora A Charlebois, [facility] 01/22/2020 D64.9 Anemia, unspecified Dinora A Ch arlebois, [facility] 01/22/2020 K59.00 Constipation, unspecified Meliss a A Charlebois, [facility] Plan of Treatment Future Appointment(s):* 06/09/2020 3:00 pm - Jesus Johnson M.D. at [facility] ENT/GI Practice * 06/04/2020 8:05 am - Jesus Johnson M.D. at [facility] Functional Status Description No Information Available Mental Status Description No Information Available Referrals Refer to Dr Reason for Referral Status Appt Date Jesus Johnson M.D. [id number] [place] 06/04/[address] [place] [address] [phone] José Robb MD Closed [address] [facility] [address] [place] [address] [phone] Jesus Johnson M.D. [phone] [id number] [place] [address] [phone]
--- OUTSIDE RECORDS SUMMARY | 2020-06-04 09:58 | CCD ---
Author Author [facility] ems Organization [facility] ems Address Unknown Phone Unavailable Care Team Providers Care Rn Orthopaedics Name Role Phone Francisco Recio Unavailable PROBLEMS Type Condition ICD9-CM Code [id number] Code Onset Dates Condition S tatus SNOMED Code Notes Problem Stress incontinence N39.3 Active 64395792 Problem Type 1 diabetes mellitus with complication E10.8 Active 31911986 Problem Carpal tunnel syndrome of right wrist G56.01 Ac tive 376051617487654 Problem Chronic GERD K21.9 Active 216099889 Problem Carpal tunnel syndrome on right G56.01 Active 014585440117954 Problem Hypertension, unspecified type I10 Active 3 8161413 Problem Pain in right shoulder M25.511 Active 593286357 57303860 Problem Stable angina I20.8 Active 368895459 Problem Other specified hypothyroidism E03.8 Active 4 5257160 Problem Unstable angina I20.0 Active 7936619 Problem Other chronic pain G89.29 Active 66898202 Problem History of lumbar laminectomy Z98.890 Active 10 934623787973538 Problem Hospital discharge follow-up Z09 Active 406 165619 Problem Other depression F32.89 Active 92100342 Problem Mild intermittent asthma without complication J45. 20 Active 052618384 ALLERGIES Allergen (clinical drug ingredient) Drug/Non Drug Allergy do cumented on EMR Reaction Allergy Type Onset Date Status Latex Gloves(NDC Code:18790-07750) Rash Drug Allergy Active Sulfa (for allergy use only) Angioedema Drug Allergy Active Penicillin (For Allergies Use Only) Angioedema Drug Allerg y Active morphine Morphine Sulfate(NDC Code:[address]-96) Anaphylaxis Drug Allergy Active OxyCODONE ER Rash Drug Allergy Active ENCOUNTERS from 1975 to 2020-05-04 Encounter Location Date Provider Diagnosis [facility] [address] [place] [phone] Apr, Francisco Recio IMMUNIZATIONS Vaccine Route Administration Date Status Influenza (18 yrs & older) Flublok IM Intramuscular Apr 01, 2019 Administered Pneumococcal Adult 0.5mL (Pneumovax 23) IM Intramuscular Feb 26, 2018 Administered Influenza (6mo & up) Fluzone IM Intramuscular Feb 26, 2018 Ad ministered SOCIAL HISTORY Tobacco Use: Social History Observation Description Date Details (start date - stop date) Current Smoker Sex Assigned At : Social History Observation Description Sex Assigned At Unknown Education: Question Answer Notes Level of Education: Finished High School Audit Question Answer Notes Total Score: 1 Interpretation: Alcohol Education Language: Question Answer Notes Languages spoken: Kazakh Protestant: Question Answer Notes Protestant 21 Sikh Domestic Violence: Question Answer Notes Status: Sexual Hx: Question Answer Notes Had sex in the last 12 months (vaginal, oral, or anal)? No Have you ever had an STD? No Drug and Alcohol Question Answer Notes Total Score: 0 Interpretation: No problems reported Alcohol Screening: Question Answer Notes Did you have a drink containing alcohol in the past year? Ye s Points 1 Interpretation Negative How often did you have six or more drinks on one occas ion in the past year? Never (0 points) How many drinks did you have on a typica l day when you were drinking in the past year? 1 or 2 (0 points) How often did you have a drink containing alcohol in t he past year? Monthly or less (1 point) Tobacco Use: Question Answer Notes Are you a: current smoker Patient counseled on the dangers of tobacco use and urged to quit: 04/01/2019 How many cigarettes a day do you smoke? 6-10 Are you interested in quitting? Not ready to quit Counseled the patient on smoking effects, education provided 04/01/2019 REASON FOR REFERRAL No Information VITAL SIGNS No information MEDICATIONS Medication SIG (Take, Route, Frequency, Duration) Notes Start Da te End Date Status Semglee 100 UNIT/ML 45 units Subcutaneous at night for 30 days Apr, Active FreeStyle Lite Test - TEST FOUR TIMES A DAY for 25 Active Basaglar KwikPen 100 UNIT/ML 45 units Subcutaneous at night for 30 Da ys Active Admelog SoloStar 100 UNIT/ML ss Subcutaneous (MDD 60 units once daily for 25 Active Ditropan XL 5 MG 1 tablet Orally Once a day for 30 day(s) Dec, Active Accu-Chek Safe-T Pro Lancets - as directed 4 times a day (E10.8) for 25 Active Aleve PM 220-25 MG as directed Orally as needed at bedtime Active Levothyroxine Sodium 200 MCG TAKE ONE TABLET BY MOUTH EVERY MORNING ON AN EMPTY STOMACH orally Daily for 30 Acti ve Symbicort 80-4.5 MCG/ACT 2 puffs Inhalation Once a day for 30 Da ys Jul, Active Unifine Pentips Plus 32G X 4 MM Dx E11.9 finger four times daily for 15 Active Ranitidine HCl 150 MG TAKE ONE CAPSULE BY MOUTH AT BEDTIME for 30 Active May Have - as directed Diabetic test strips 4 times a day f or 30 days Jan, Active Omeprazole Magnesium 20 MG 1 tablet 30 minutes before morning meal Orally Once a day for 30 day(s) Aug, Active AmLODIPine Besylate 10 MG 1 tablet Orally Once a day for 30 Active Blood Glucose Monitor System w/Device as directed E10. 8 four times daily for 30 days Jan, Active Albuterol Sulfate HFA 108 (90 Base) MCG/ACT 1 puff as needed Inhalation every 4 hrs PRN for 30 Active Lisinopril 20 MG 1 tablet Orally bid for 30 days Active Myrbetriq 25 MG 1 tablet Orally Once a day for 30 day(s) Active Blood Pressure Kit - as directed as directed (I10) Daily for 99 months Jan, Active PROCEDURES No Information RESULTS No Results REASON FOR VISIT refill - out of med MEDICAL (GENERAL) HISTORY Type Description Date Medical History Type 1 Diabetes uncontrolled - goal HbA1 c of 8 Medical History HTN, goal of less than 140/90 Medical History Asthma Medical History GERD Medical History Depression Medical History Stress Incontinence Medical History Carpal tunnel Syndrome Medical History History of Laminectomy Surgical History C section x 3 Surgical History all teeth extracted Surgical History appendectomy Surgical History lumbar laminectomy x 3, removal hardware Surgical History hysterectomy, total with BSO Surgical History ciaran filter L groin Surgical History right trigger finger release 2018 Hospitalization History enteritis 11/25/17-11/26/17 Hospitalization History hi blood sugar 12/2017 Goals Section No Information Health Concerns No Information MEDICAL EQUIPMENT No Information MENTAL STATUS No Information FUNCTIONAL STATUS No Information ASSESSMENTS No Information PLAN OF TREATMENT Medication Medication Name Sig Start Date Stop Date Semglee 100 UNIT/ML 45 units Subcutaneous at night for 30 days 1 Apr, Lisinopril 20 MG 1 tablet Orally bid for 30 days Next Appt Details Provider Name:Chauncey Ramírez, 2020-06-04 1 0:00:00 AM, [address] [place] [address], [address], Insurance Providers Payer Name Payer Address Payer Phone Insured Name Patient Relati onship to Insured Coverage Start Date Coverage End Date [facility] CORPORATE CLAIMS DEPT [address] [facility] [phone] RISHI MAIER self
--- OUTSIDE RECORDS SUMMARY | 2020-06-04 09:58 | CCD | Continuity of Care Document ---
Author Author [facility] Organization Unknown Address [address] [place] [address], [address] [place] [address] Phone [phone] Care Team Providers Care Director Of Dementia Operations Name Role Phone AUTM Unavailable Francisco Recio D.O. AUTM [phone] Francisco Recio D.O. AUTM [phone] Problems Active Problems Provider Date Essential hypertension [...] SIG Qnty Indications Ordering Provide r Date Amlodipine Besylate 10mg Tablets Take One Tablet [...] prior to meals and AT bedtime 120tabs Andrew Royal MD Pantoprazole Sodium 40mg Tablets D R Take 1 tablet by mouth daily. 30tabs Seth Royal MD 00 Immunizations Description No Information Available Vital Signs Date Vital Result Comment 04/30/2020 9:38am BP Systolic 118 mmHg BP Diastolic 78 mmHg Height 63 inches 5'3" Weight 180.00 lb BMI (Body Mass Index) 31.9 kg/m2 [place] Body Weight 115 lb Weight 81.648 kg BSA (Body Surface Area) 1.85 m2 03/23/2020 10:48am Body Temperature 97.5 F Height 63 inches 5'3" Weight 180.00 lb BMI (Body Mass Index) 31.9 kg/m2 [place] Body Weight 115 lb Weight 81.648 kg BSA (Body Surface Area) 1.85 m2 Results Test Acquired Date Facility Test Result H/L Range Note Laboratory test finding 03/19/2020 [facility] [address] [place] [address] [phone] Bedside Glucose 118 mg/dL High 70-105 Procedures Date Code Description Status 03/19/2020 80692 Endoscopy Upper GI Complex Diagn ostic Completed Medical Devices Description No Information Available Encounters Type Date Location Provider Dx Diagnosis Office Visit 03/23/2020 10:30a [facility] José Krishna MD M79.661 Pain in right lower leg Office Visit 01/22/2020 9:00a [facility] Betty gregorio Lewis, RPA-C R10.12 Left upper quadrant pain K21.9 Gastro-esophageal reflux dis ease without esophagitis D64.9 Anemia, unspecified K59.00 Constipation, unspecified Assessments Date Code Description Provider 03/23/2020 M79.661 Pain in right lower leg José jackson MD 03/19/2020 R10.12 Left upper quadrant pain Ta Johnson M.D. 03/19/2020 K22.8 Other specified diseases of esop hagus Jesus Johnson M.D. 03/19/2020 D50.9 Iron deficiency anemia, unspecif ied Jesus Johnson M.D. 03/19/2020 R12 Heartburn Jesus Díaz ala, M.D. 01/22/2020 R10.12 Left upper quadrant pain Dinora A Timothybois, [facility] 01/22/2020 K21.9 Gastro-esophageal reflux disease without esophagitis Dinora A Timothybois, [facility] 01/22/2020 D64.9 Anemia, unspecified Dinora A Ch arlebois, [facility] 01/22/2020 K59.00 Constipation, unspecified Meliss a A Charlebois, RPA-C Plan of Treatment No Information Available Functional Status Description No Information Available Mental Status Description No Information Available Referrals Refer to Dr Reason for Referral Status Appt Date Jesus Johnson M.D. [id number] Closed [address] [facility], [place] [address] [phone]
--- OUTSIDE RECORDS SUMMARY | 2020-06-04 09:58 | CCD ---
Author Author [facility] Organization [facility] ems Address Unknown Phone Unavailable Care Team Providers Care Thaw Shed Heater Tender Name Role Phone Francisco Recio Unavailable PROBLEMS Type Condition ICD9-CM Code [id number] Code Onset Dates Condition S tatus SNOMED Code Notes Problem Stress incontinence N39.3 Active 67936728 Problem Type 1 diabetes mellitus with complication E10.8 Active 76934703 Problem Carpal tunnel syndrome of right wrist G56.01 Ac tive 625791323486736 Problem Chronic GERD K21.9 Active 702166976 Problem Carpal tunnel syndrome on right G56.01 Active 899658847218461 Problem Hypertension, unspecified type I10 Active 3 5784628 Problem Pain in right shoulder M25.511 Active 265158985 98426487 Problem Stable angina I20.8 Active 587336584 Problem Other specified hypothyroidism E03.8 Active 4 0284426 Problem Unstable angina I20.0 Active 8634137 Problem Other chronic pain G89.29 Active 34002087 Problem History of lumbar laminectomy Z98.890 Active 10 121605041458558 Problem Hospital discharge follow-up Z09 Active 406 833919 Problem Other depression F32.89 Active 17889785 Problem Mild intermittent asthma without complication J45. 20 Active 878476485 ALLERGIES Allergen (clinical drug ingredient) Drug/Non Drug Allergy do cumented on EMR Reaction Allergy Type Onset Date Status Latex Gloves(NDC Code:88885-27670) Rash Drug Allergy Active Sulfa (for allergy use only) Angioedema Drug Allergy Active Penicillin (For Allergies Use Only) Angioedema Drug Allerg y Active morphine Morphine Sulfate(NDC Code:[address]-49) Anaphylaxis Drug Allergy Active OxyCODONE ER Rash Drug Allergy Active ENCOUNTERS from 1975 to 2020-04-27 Encounter Location Date Provider Diagnosis [facility] [address] [place] [phone] Apr, Francisco Recio Type 1 diabetes mellitus with complicati on E10.8 IMMUNIZATIONS Vaccine Route Administration Date Status Influenza [...] Finished High School Audit Question Answer Notes Interpretation: Alcohol Education Total Score: 1 Language: Question Answer Notes Languages spoken: Irish Amish: Question Answer Notes Amish 21 Zoroastrian Domestic Violence: Question Answer Notes Status: Sexual Hx: Question Answer Notes Had sex in the last 12 months (vaginal, oral, or anal)? No Have you ever had an STD? No Drug and Alcohol Question Answer Notes Interpretation: No problems reported Total Score: 0 Alcohol Screening: Question Answer Notes Did you [...] at night for 30 Da ys Active May Have - as directed Diabetic test strips 4 times a day f or 30 days Jan, Active Ditropan XL 5 MG 1 tablet Orally Once a day for 30 day(s) Dec, Active Omeprazole Magnesium 20 MG 1 tablet 30 minutes before morning meal Orally Once a day for 30 day(s) Aug, Active Aleve PM 220-25 MG as directed Orally as needed at bedtime Active Symbicort 80-4.5 MCG/ACT 2 puffs Inhalation Once a day for 30 Da ys Jul, Active Accu-Chek Safe-T Pro Lancets - as directed 4 times a day (E10.8) for 25 Active Levothyroxine Sodium 200 MCG TAKE ONE TABLET BY MOUTH EVERY MORNING ON AN EMPTY STOMACH orally Daily for 30 Acti ve Ranitidine HCl 150 MG TAKE ONE CAPSULE BY MOUTH AT BEDTIME for 30 Active Lisinopril 20 MG 1 tablet Orally bid for 30 Active Myrbetriq 25 MG 1 tablet Orally Once a day for 30 day(s) Active AmLODIPine Besylate 10 MG 1 tablet Orally Once a day for 30 Active Admelog SoloStar 100 UNIT/ML ss Subcutaneous (MDD 60 units once daily for 25 Active Albuterol Sulfate HFA 108 (90 Base) MCG/ACT 1 puff as needed Inhalation every 4 hrs PRN for 30 Active Unifine Pentips Plus 32G X 4 MM Dx E11.9 finger four times daily for 15 Active Blood Glucose Monitor System w/Device as directed E10. 8 four times daily for 30 days Jan, Active Blood Pressure Kit - as directed as directed (I10) Daily for 99 months Jan, Active PROCEDURES No Information RESULTS No Results REASON FOR VISIT change in script MEDICAL (GENERAL) HISTORY Type Description Date Medical [...] No Information FUNCTIONAL STATUS No Information ASSESSMENTS Encounter Date Diagnosis Assessment Notes Treatment Notes Treatm ent Clinical Notes Apr, Type 1 diabetes mellitus with complication (ICD- 10 - E10.8) PLAN OF TREATMENT Medication Medication Name Sig Start Date Stop Date Semglee 100 UNIT/ML 45 units Subcutaneous at night for 30 days 1 5 Apr, 2020 Next Appt Details Provider Name:Chauncey Ramírez, 2020-06-04 1 0:00:00 AM, [address] [place], [address], Insurance Providers Payer Name Payer Address Payer Phone Insured Name Patient Relati onship to Insured Coverage Start Date Coverage End Date [facility] CORPORATE CLAIMS DEPT [address] [facility] [phone] RISHI MAIER self
--- OUTSIDE RECORDS SUMMARY | 2020-06-04 09:59 | CCD | Continuity of Care Document ---
Author Author Juventino GARAY Organization Unknown Address [address] [place] [address] Phone [phone] Care Team Providers Care Conductor Sleeping Car Name Role Phone Ross Tamez M.D. AUTM [phone] Problems Description No Information Available Social History Type Date Description Comments Sex Unknown Tobacco Use Start: Unknown currently smokes 1/2 Pack Daily ETOH Use Occasionally consumes alcohol Recreational Drug Use Denies Drug Use Tobacco Use Start: Unknown Patient is a current smoker, smo kes every day Smoking Status Reviewed: 03/02/20 Patient is a current smoker, smokes every day Exercise Type/Frequency Exercises regularly Allergies, Adverse Reactions, Alerts Active Allergies Reaction Severity Comments Date Morphine 12/03/2019 Penicillin V 12/03/2019 Oxycodone 12/03/2019 Latex 12/03/2019 sulfa 12/03/2019 Medications Active Medications SIG Qnty Indications Ordering Provide r Date Levothyroxine Sodium 200mcg Tablet s Every Day Unknown Aleve 220mg Capsules Unknown Lisinopril 20mg Tablets 2 Tablets Every Day Unknown Admelog Solostar 100 Unit/ML Solution Pen-Inject Unknown Albuterol Sulfate HFA 108(90Base) mcg/Act Aerosol Unknown Symbicort 80-4.5mcg/Act Aerosol Unknown Amlodipine Besylate 10mg Tablets 1 by mouth every day Unknown Basaglar Kwikpen 100 Unit/ML Solution Pen-Inject Unknown History Medications Nitrofurantoin Macrocrystal 100mg Capsules 1 by mouth now and one at at bedtime 2caps Kim Thurman MD 12/30/2019 - 03/02/2020 Immunizations Description No Information Available Vital Signs Date Vital Result Comment 03/22/2020 9:56am BP Systolic 122 mmHg BP Diastolic 68 mmHg 12/03/2019 6:44am BP Systolic 126 mmHg BP Diastolic 68 mmHg Height 62.25 inches 5'2.25" Weight 171.00 lb BMI (Body Mass Index) 31.0 kg/m2 BSA (Body Surface Area) 1.79 m2 Results Test Acquired Date Facility Test Result H/L Range Note Thinprep W/Reflex HR HPV If Asc-US 12/03/2019 [facility] Reflex HPV ASCUS Normal Normal 1 TP Reflex HPV ASCUS SEE IMAGE Culture Urine 12/03/2019 [facility] ( )- - <External Comment eCWMed> FULL REPORT IN L <SEE NOTE> 2 Urine Culture Result NO GROWTH Ua Routine 12/03/2019 [facility] ( )- - Appearance, Urine CLEAR Clear Color, Urine YELLOW Yellow PH,Urine 6.0 units 5.0-9.0 Specific [place] Urine Auto 1.014 1.002-1.035 Protein, Urine Auto NEGATIVE mg/dL Negative Glucose, Urine (Ua) Auto 2+ mg/dL High Negative Ketone, Urine Auto NEGATIVE mg/dL Negative Urobilinogen, Urine Auto 0.2 mg/dL 0.0-2.0 Bilirubin, Urine Auto NEGATIVE Negative Nitrite, Urine Auto NEGATIVE Negative Leukocyte Esterase, Urine Auto NEGATIVE Negative Blood, Urine Blood NEGATIVE Negative WBC, Urine Auto 0 /HPF 0-3 RBC, Urine Auto 0 /HPF 0-3 Bacteria, Urine Auto NEGATIVE Negative Squamous Epithelial Cell Ur AU 0 /HPF 0-6 Hyaline Cast, Urine Auto 0 /LPF 0-1 Laboratory test finding 12/03/2019 [facility] ( )- - Urine Culture <pending> 1 SPECIME N PART A. Vaginal, ThinPrep Pap ([facility]) CYTOLOGY HX-------- Date of Last Menstrual Period: HYSTERECTOMY Other Information: Hysterectomy FINAL DIAGNOSIS---- INTERPRETATION: Negative for Intraepithelial Lesion or Malignancy. SPECIMEN ADEQUACY:Satisfactory for evaluation. 2 FULL REPORT IN LAB NOTES (Jailene Funez and Nika). Procedures Date Code Description Status 03/04/2020 30556 Neurostimulator Pulse Generator Brain/Spinal Cord First Hour Completed 03/04/2020 27951 Insertion/Replacemen t Peripheral Neurostimulator Pulse Generator Completed 02/26/2020 97145 Neurostimulator Pulse Generator Brain/Spinal Cord First Hour Completed 02/26/2020 78060 Fluoroscopic guidanc e for needle placement (eg. Biopsy, aspiratio Completed 02/26/2020 61349 Insertion/Replacemen t Peripheral Neurostimulator Pulse Generator Completed 12/30/2019 67761 Voiding Pressure Studies (THIRD GRADE TEACHER), I ntra-Abdominal Pressure Completed 12/30/2019 60948 EMG Anal/Urethral Sphincter Comp leted 12/30/2019 16076 Uroflowmetry Complex Completed 12/30/2019 73039 Complex Cystometrogr am W/Uroflo bladder void pressure,&urethral p Completed Medical Devices Description No Information Available Encounters Type Date Location Provider Dx Diagnosis Office Visit 03/22/2020 10:00a [place] [employer] stenographer Kim Garay MD N3 2.81 Overactive bladder N39.41 Urge incontinence R35.1 Nocturia N39.42 Incontinence without sensory awareness Office Visit 03/02/2020 11:15a [place] [employer] stenographer Kim Garay MD N3 2.81 Overactive bladder N39.41 Urge incontinence R33.8 Other retention of urine R35.1 Nocturia Office Visit 12/03/2019 9:15a [place] [employer] stenographer Kim Garay MD N3 9.46 Mixed incontinence R35.1 Nocturia N39.42 Incontinence without sensory awareness N95.2 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 Oth diabetes mellitus with o ther skin complications Z91.89 Oth personal risk factors, n ot elsewhere classified Assessments Date Code Description Provider 03/22/2020 N32.81 Overactive bladder Clau Garay i, MD 03/22/2020 N39.41 Urge incontinence Kim Garay MD 03/22/2020 R35.1 Nocturia Kim Garay 03/22/2020 N39.42 Incontinence without sensory murali reness Kim Garay MD 03/02/2020 N32.81 Overactive bladder Clau Garay i, MD 03/02/2020 N39.41 Urge incontinence Kim Garay MD 03/02/2020 R33.8 Other retention of urine Kim Garay MD 03/02/2020 R35.1 Nocturia Kim Garay 02/26/2020 N32.81 Overactive bladder Clau Garay i, MD 02/26/2020 N39.41 Urge incontinence Kim Garay MD 02/26/2020 R33.8 Other retention of urine Kim Garay MD 02/26/2020 R35.1 Nocturia Kim Garay 12/30/2019 N32.81 Overactive bladder Clau Garay i, MD 12/30/2019 N39.41 Urge incontinence Kim Garay MD 12/30/2019 R33.8 Other retention of urine Kim Garay MD 12/30/2019 R35.1 Nocturia Kim Garay 12/30/2019 N39.42 Incontinence without sensory murali reness Kim Garay MD 12/30/2019 Z91.89 Other specified pers onal risk factors, not elsewhere classified Kim Garay MD 12/03/2019 N39.46 Mixed incontinence Clau Garay i, MD 12/03/2019 R35.1 Nocturia Kim Garay 12/03/2019 N39.42 Incontinence without sensory murali griceless Kim Garay MD 12/03/2019 N95.2 Postmenopausal atrophic vaginiti s Kim Garay MD 12/03/2019 E13.628 Other specified diab etes mellitus with other skin complications Kim Garay MD 12/03/2019 Z91.89 Other specified pers onal risk factors, not elsewhere classified Kim Garay MD Plan of Treatment No Information Available Functional Status Description No Information Available Mental Status Description No Information Available Referrals Description No Information Available
--- OUTSIDE RECORDS SUMMARY | 2020-06-04 09:59 | CCD | Continuity of Care Document ---
Author Author Juventino ROBB MD Organization Unknown Address [address] [place] [address], [address] [place] [address] Phone [phone] Care Team Providers Care Clipman Name Role Phone Francisco Recio D.O. AUTM [phone] Problems Description No Information Available Social History Type Date Description Comments Sex Unknown Allergies, Adverse Reactions, Alerts Description No Information Available Medications Description No Information Available Immunizations Description No Information Available Vital Signs Date Vital Result Comment 03/23/2020 10:48am Body Temperature 97.5 F Height 63 inches 5'3" Weight 180.00 lb BMI (Body Mass Index) 31.9 kg/m2 [place] Body Weight 115 lb Weight 81.648 kg Results Description No Information Available Procedures Description No Information Available Medical Devices Description No Information Available Encounters Description No Information Available Assessments Date Code Description Provider 03/23/2020 M79.661 Pain in right lower leg José jackson MD Plan of Treatment 03/23/2020 - José Robb MD* M79.661 Pain in right lower leg* New Xrays:* MRI right Tib-Fib, Ordered: 03/23/20 * Follow up:* with right tib/fib mri results Functional Status Description No Information Available Mental Status Description No Information Available Referrals Description No Information Available
--- OUTSIDE RECORDS SUMMARY | 2020-06-04 09:59 | CCD | Continuity of Care Document ---
Author Author Juventino PEREZ Organization Unknown Address [address] [place] [address], [facility] [place] [address] Phone [phone] Care Team Providers Care Trolley Wire Installer Name Role Phone CathreineFrancisco jeffrey AUTM [phone] Kim Madera MD AUTM [phone] Problems Active Problems Provider Date Obesity Seth [...] Information Available Procedures Date Code Description Status 04/16/2020 78496 Echocardiogram 2-D Doppler Color Completed 02/24/2020 46618 ECG 12-Lead Completed Medical Devices Description No [...] surve illance Assessments Date Code Description Provider 04/16/2020 R94.31 Abnormal electrocardiogram [ECG] [EKG] ECHO [...] nce Seth Garcia MD Plan of Treatment Future Appointment(s):* 04/23/2020 2:00 pm - Holter/Event/Telemetry at Main Office 02/24/2020 - Seth Garcia MD* R00.2 Palpitations* New Orders:* Holter Monitor, Scheduled: 04/23/20 * Recommendations:* 24-hour Holter monitor * I10 Essential [...] LOW SODIUM - Target total daily sodium 8309-9248 mg /d [do not go below 2300 [...] MD echo auth emr-expires 07/04/20. ca Created [address] [facility] [address] [phone]
--- OUTSIDE RECORDS SUMMARY | 2020-06-04 09:59 | CCD | Continuity of Care Document ---
Author Author Juventino GARAY Organization Unknown Address [address] [place] [address] Phone [phone] Care Team Providers Care Retail Store Manager Name Role Phone Ross Tamez M.D. AUTM [phone] Problems Description No Information Available Social History [...] HPV ASCUS SEE IMAGE Culture Urine 12/03/2019 [facility] ( )- - <External Comment eCWMed> FULL REPORT IN L <SEE NOTE> 2 Urine Culture Result NO GROWTH Ua Routine 12/03/2019 [facility] ( )- - Appearance, Urine CLEAR Clear Color, Urine YELLOW Yellow PH,Urine 6.0 units 5.0-9.0 Specific [place] Urine Auto 1.014 1.002-1.035 Protein, Urine Auto [...] 0 /LPF 0-1 Laboratory test finding 12/03/2019 [facility] ( )- - Urine Culture <pending> 1 SPECIME N PART A. Vaginal, ThinPrep Pap (Whistle Punk) CYTOLOGY HX-------- Date of Last Menstrual Period: HYSTERECTOMY Other Information: Hysterectomy FINAL DIAGNOSIS---- INTERPRETATION: Negative for Intraepithelial Lesion or Malignancy. SPECIMEN ADEQUACY:Satisfactory for evaluation. 2 FULL REPORT IN LAB NOTES (Jailene Funez and Nika). Procedures Date Code Description Status 03/04/2020 76599 Neurostimulator Pulse Generator Brain/Spinal Cord First Hour Completed 03/04/2020 22720 Insertion/Replacemen t Peripheral Neurostimulator Pulse Generator Completed 02/26/2020 40219 Neurostimulator Pulse Generator Brain/Spinal Cord First Hour Completed 02/26/2020 06829 Fluoroscopic guidanc e for needle placement (eg. Biopsy, aspiratio Completed 02/26/2020 79042 Insertion/Replacemen t Peripheral Neurostimulator Pulse Generator Completed 12/30/2019 84791 Voiding Pressure Studies (RAILROAD SWITCHMAN), I ntra-Abdominal Pressure Completed 12/30/2019 81314 EMG Anal/Urethral Sphincter Comp leted 12/30/2019 75946 Uroflowmetry Complex Completed 12/30/2019 16017 Complex Cystometrogr am W/Uroflo bladder void pressure,&urethral p Completed Medical Devices Description No Information Available Encounters Type Date Location Provider Dx Diagnosis Office Visit 03/02/2020 11:15a [place] [employer] wood machinist Kim Garay MD N3 2.81 Overactive bladder N39.41 Urge incontinence R33.8 Other retention of urine R35.1 Nocturia Office Visit 12/03/2019 9:15a [place] [employer] wood machinist Kim Garay MD N3 9.46 Mixed incontinence R35.1 Nocturia N39.42 Incontinence without sensory awareness N95.2 

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
--- OUTSIDE RECORDS SUMMARY | 2020-06-04 10:00 | CCD ---
Author Author [facility] Organization [facility] Address Unknown Phone Unavailable Care Team Providers Care Sat Act Instructor Name Role Phone Sindhu CAIN MD Unavailable Unavailable ANTECOL, Sindhu SALINAS MD Unavailable Unavailable ANTECOL, Sindhu SALINAS MD Unavailable Unavailable ANTECOL, Sindhu SALINAS MD Unavailable Unavailable ANTECOL, Sindhu SALINAS MD Unavailable Unavailable ANTECOL, Sindhu SALINAS MD Unavailable Unavailable ANTECOL, Sindhu SALINAS MD Unavailable Unavailable ANTECOL, Sindhu SALINAS MD Unavailable Unavailable ANTECOL, Sindhu SALINAS MD Unavailable Unavailable ANTECOL, Sindhu SALINAS MD Unavailable Unavailable ANTECOL, Sindhu SALINAS MD Unavailable Unavailable ANTECOL, Sindhu SALINAS MD Unavailable Unavailable ANTECOL, Sindhu SALINAS MD Unavailable Unavailable ANTECOL, Sindhu SALINAS MD Unavailable Unavailable ANTECOLSindhu MD Unavailable Unavailable ANTECOL, Sindhu SALINAS MD Unavailable Unavailable ANTECOLSindhu MD Unavailable Unavailable ANTECOL, Sindhu SALINAS MD Unavailable Unavailable ANTECOL, Sindhu SALINAS MD Unavailable Unavailable ANTECOL, Sindhu SALINAS MD Unavailable Unavailable ANTECOL, Sindhu SALINAS MD Unavailable Unavailable ANTECOLSindhu MD Unavailable Unavailable ANTECOLSindhu MD Unavailable Unavailable ANTECOLSindhu MD Unavailable Unavailable ANTECOLSindhu MD Unavailable Unavailable ANTECOLSindhu MD Unavailable Unavailable ANTECOLSindhu MD Unavailable Unavailable ANTECOLSindhu MD Unavailable Unavailable ANTECOLSindhu MD Unavailable Unavailable ANTECOLSindhu MD Unavailable Unavailable ANTECOLSindhu MD Unavailable Unavailable ANTECOLSindhu MD Unavailable Unavailable ANTECOLSindhu MD Unavailable Unavailable ANTECOLSindhu MD Unavailable Unavailable ANTECOLSindhu MD Unavailable Unavailable ANTECOL, Sindhu SALINAS MD Unavailable Unavailable ANTECOL, Sindhu SALINAS MD Unavailable Unavailable ANTECOLSindhu MD Unavailable Unavailable ANTECOL, Sindhu SALINAS MD Unavailable Unavailable ANTECOL, Sindhu SALINAS MD Unavailable Unavailable ANTECOL, Sindhu SALINAS MD Unavailable Unavailable ANTECOL, Sindhu SALINAS MD Unavailable Unavailable ANTECOL, Sindhu SALINAS MD Unavailable Unavailable ANTECOL, Sindhu SALINSA MD Unavailable Unavailable ANTECOL, Sindhu SALINAS MD Unavailable Unavailable ANTECOL, Sindhu SALINAS MD Unavailable Unavailable ANTECOL, Sindhu SALINAS MD Unavailable Unavailable ANTECOL, Sindhu SALINAS MD Unavailable Unavailable ANTECOL, Sindhu SALINAS MD Unavailable Unavailable ANTECOL, Sindhu SALINAS MD Unavailable Unavailable ANTECOL, Sindhu SALINAS MD Unavailable Unavailable ANTECOL, Sindhu SALINAS MD Unavailable Unavailable ANTECOL, Sindhu SALINAS MD Unavailable Unavailable ANTECOL, Sindhu SALINAS MD Unavailable Unavailable ANTECOL, Sindhu SALINAS MD Unavailable Unavailable Tang SOTO, Cleveland Broderick MD Unavailable Unavailable Beckwith JR, Cleveland Broderick MD Unavailable Unavailable Beckwith JR, Cleveland Broderick MD Unavailable Unavailable Beckwith JR, Cleveland Broderick MD Unavailable Unavailable Tang SOTO, Cleveland Broderick MD Unavailable Unavailable Tang SOTO, Cleveland Broderick MD Unavailable Unavailable Beckwith JR, Cleveland Broderick MD Unavailable Unavailable Beckwith JR, Cleveland Broderick MD Unavailable Unavailable Beckwith JR, Cleveland Broderick MD Unavailable Unavailable Beckwith JR, Cleveland Broderick MD Unavailable Unavailable Beckwith JR, Cleveland Broderick MD Unavailable Unavailable Beckwith JR, Cleveland Broderick MD Unavailable Unavailable Beckwith JR, Cleveland Broderick MD Unavailable Unavailable Beckwith JR, Cleveland Broderick MD Unavailable Unavailable Mollison, Armin Kumar MD Unavailable Unavailable Mollison, Armin Kumar MD Unavailable Unavailable Mollison, Armin Kumar MD Unavailable Unavailable Mollison, Armin Kumar MD Unavailable Unavailable Mollison, Armin Kumar MD Unavailable Unavailable Mollison, Armin Kumar MD Unavailable Unavailable Mollison, Armin Kumar MD Unavailable Unavailable Mollison, Armin Kumar MD Unavailable Unavailable Mollison, Armin Kumar MD Unavailable Unavailable Mollison, Armin Kumar MD Unavailable Unavailable Mollison, Armin Kumar MD Unavailable Unavailable Mollison, Armin Kumar MD Unavailable Unavailable Mollison, Armin Kumar MD Unavailable Unavailable Mollison, Armin Kumar MD Unavailable Unavailable Mollison, Armin Kumar MD Unavailable Unavailable Mollison, Armin Kumar MD Unavailable Unavailable Mollison, Armin Kumar MD Unavailable Unavailable Mollison, Armin Kumar MD Unavailable Unavailable Mollison, Armin Kumar MD Unavailable Unavailable Mollison, Armin Kumar MD Unavailable Unavailable Mollison, Armin Kumar MD Unavailable Unavailable Mollison, Armin Kumar MD Unavailable Unavailable Charlebois, A Dinora RPA C Unavailable Unavailable Charlebois, A Dinora RPA C Unavailable Unavailable Charlebois, A Dinora RPA C Unavailable Unavailable Charlebois, A Dinora RPA C Unavailable Unavailable Charlebois, A Dinora RPA C Unavailable Unavailable Charlebois, A Dinora RPA C Unavailable Unavailable Charlebois, A Dinora RPA C Unavailable Unavailable Charlebois, A Dinora RPA C Unavailable Unavailable Charlebois, A Dinora RPA C Unavailable Unavailable Charlebois, A Dinora RPA C Unavailable Unavailable Charlebois, A Dinora RPA C Unavailable Unavailable Charlebois, A Dinora RPA C Unavailable Unavailable Charlebois, A Dinora RPA C Unavailable Unavailable Charlebois, A Dinora RPA C Unavailable Unavailable Charlebois, A Dinora RPA C Unavailable Unavailable Charlebois, A Dinora RPA C Unavailable Unavailable Charlebois, A Dinora RPA C Unavailable Unavailable Charlebois, A Dinora RPA C Unavailable Unavailable Charlebois, A Dinora RPA C Unavailable Unavailable Charlebois, A Dinora RPA C Unavailable Unavailable Charlebois, A Dionra RPA C Unavailable Unavailable Charlebois, A Dinora RPA C Unavailable Unavailable Charlebois, A Dinora RPA C Unavailable Unavailable Charlebois, A Dinora RPA C Unavailable Unavailable Charlebois, A Dinora RPA C Unavailable Unavailable Charlebois, A Dinora RPA C Unavailable Unavailable Charlebois, A Dinora RPA C Unavailable Unavailable Charlebois, A Dinora RPA C Unavailable Unavailable Charlebois, A Dinora RPA C Unavailable Unavailable Charlebois, A Dinora RPA C Unavailable Unavailable Charlebois, A Dinora RPA C Unavailable Unavailable GARAY, Seb STEPHEN MD Unavailable Unavailable GARAY, Seb STEPHEN MD Unavailable Unavailable GARAY, Seb STEPHEN MD Unavailable Unavailable GARAY, Seb STEPHEN MD Unavailable Unavailable GARAY, Seb STEPHEN MD Unavailable Unavailable GARAY, Seb STEPHEN MD Unavailable Unavailable GARAY, Seb STEPHEN MD Unavailable Unavailable GARAY, Seb STEPHEN MD Unavailable Unavailable GARAY, Seb STEPHEN MD Unavailable Unavailable GARAY, Seb STEPHEN MD Unavailable Unavailable GARAY, Seb STEPHEN MD Unavailable Unavailable GARAY, Seb STEPHEN MD Unavailable Unavailable GARAY, Seb STEPHEN MD Unavailable Unavailable GARAY, Seb STEPHEN MD Unavailable Unavailable GARAY, Seb STEPHEN MD Unavailable Unavailable GARAY, Seb STEPHEN MD Unavailable Unavailable GARAY, Seb STEPHEN MD Unavailable Unavailable GARAY, L HAILEE MD Unavailable Unavailable GARAY, L HAILEE MD Unavailable Unavailable GARAY, L HAILEE MD Unavailable Unavailable GARAY, L HAILEE MD Unavailable Unavailable GARAY, L HAILEE MD Unavailable Unavailable GARAY, L HAILEE MD Unavailable Unavailable GARAY, L HAILEE MD Unavailable Unavailable GARAY, L HAILEE MD Unavailable Unavailable GARAY, L HAILEE MD Unavailable Unavailable GARAY, L HAILEE MD Unavailable Unavailable GARAY, L HAILEE MD Unavailable Unavailable GARAY, L HAILEE MD Unavailable Unavailable GARAY, L HAILEE MD Unavailable Unavailable GARAY, L HAILEE MD Unavailable Unavailable GARAY, L HAILEE MD Unavailable Unavailable GARAY, L HAILEE MD Unavailable Unavailable GARAY, L HAILEE MD Unavailable Unavailable GARAY, L HAILEE MD Unavailable Unavailable GARAY, L HAILEE MD Unavailable Unavailable GARAY, L HAILEE MD Unavailable Unavailable GARAY, L HAILEE MD Unavailable Unavailable GARAY, L HAILEE MD Unavailable Unavailable GARAY, L HAILEE MD Unavailable Unavailable GARAY, L HAILEE MD Unavailable Unavailable GARAY, L HAILEE MD Unavailable Unavailable Re-disclosure Warning The records that you are about to access may contain information from federally-assisted alcohol or drug abuse programs. If such information is present, then the following federally mandated warning applies: This information has been disclosed to you from records protected by federal confidentiality rules (42 CFR part 2). The federal rules prohibit you from making any further disclosure of this information unless further disclosure is expressly permitted by the written consent of the person to whom it pertains or as otherwise permitted by 42 CFR part 2. A general authorization for the release of medical or other information is NOT sufficient for this purpose. The Federal rules restrict any use of the information to criminally investigate or prosecute any alcohol or drug abuse patient.The records that you are about to access may contain highly sensitive health information, the redisclosure of which is protected by Article 27-F of the [facility] Public Health law. If you continue you may have access to information: Regarding HIV / AIDS; Provided by facilities licensed or operated by the [facility] Office of Mental Health; or Provided by the [facility] Office for People With Developmental Disabilities. If such information is present, then the following [facility] mandated warning applies: This information has been disclosed to you from confidential records which are protected by state law. State law prohibits you from making any further disclosure of this information without the specific written consent of the person to whom it pertains, or as otherwise permitted by law. Any unauthorized further disclosure in violation of state law may result in a fine or fpc sentence or both. A general authorization for the release of medical or other information is NOT sufficient authorization for further disc losure. Allergies and Adverse Reactions Type Description Substance Reaction Status Data Source(s ) Drug allergy Morphine Sulfate Morphine Anaphylaxis Active eCW1 ([facility]) Drug allergy Latex Gloves Drug allergy Rash Active eCW1 ([facility] Family History Family Member Name Family Member Gender Family Member Status Date o f Status Description Data Source(s) Unknown Male Problem MEDENT ([facility] ) Encounters Encounter Providers Location Date Indications Data Source(s ) [place] [address] [facility] [address] 05/04/2020 12:00:00 AM EST eCW1 ([facility]) Outpatient Attender: Dinora Lewis/Mu/Cleveland davis/Lele 04/30/2020 08:30:00 AM EST MEDENT ([facility] Yasmin dubon, ) Unknown [address] [facility] [place] [address] 04/27/2020 12:00:00 AM EST eCW1 ([facility]) Outpatient Attender: José Lewis/Mu/Juventino/Jyoti buckleyl 03/23/2020 09:30:00 AM EST MEDENT ([facility] Elizabeth alexis, ) Office Visit Attender: HAILEE [employer] animal nutrition consultant 01/2020 09:00:00 AM EST MEDENT ([facility] [facility] [employer]) [place] [address] [facility] [address] 03/17/2020 12:00:00 AM EST eCW1 ([facility]) Office Visit Attender: HAILEE [employer] animal nutrition consultant 11:15:00 AM EDT MEDENT ([employer]) [place] [address] [facility] [place] [address] 03/02/2020 12:00:00 AM EDT eCW1 ([facility]) [place] [address] [facility] [address] 02/27/2020 12:00:00 AM EDT eCW1 ([facility]) Outpatient Attender: BRAD CAIN MD Main Office 02/24/2020 12:30:00 PM EDT MEDENT ([facility]) [place] [address] [facility] [address] 02/20/2020 12:00:00 AM EDT eCW1 ([facility]) [place] [address] [facility] [address] 02/11/2020 12:00:00 AM EDT eCW1 ([facility]) Outpatient Attender: Dinora Lewis/Mu/Cleveland davis/Lele 01/22/2020 09:00:00 AM EDT MEDENT ([facility] Yasmin dubon, ) Outpatient Attender: HAILEE GARAY MD [employer] animal nutrition consultant 09:15:00 AM EDT MEDENT ([employer]) Unknown [address] [facility] [address] 11/21/2019 12:00:00 AM EDT eCW1 ([facility]) Outpatient [address] [facility] [place] [address] 10/24/2019 12:00:00 AM EDT eCW1 ([facility]) Unknown [address] [facility] [place] [address] 10/20/2019 12:00:00 AM EDT eCW1 ([facility]) Outpatient [address] [facility] [place] [address] 10/15/2019 12:00:00 AM EDT eCW1 ([facility]) [facility] [place] [address] [facility] [place] [address] 10/07/2019 12:00:00 AM EDT eCW1 ([facility]) [facility] G[facility] Resident [address] [place] [address] 09/29/2019 12:00:00 AM EDT eCW1 ([facility]) [facility] G[facility] Resident [address] [place] [address] 09/22/2019 12:00:00 AM EDT eCW1 ([facility]) [facility] [place] [address] [facility] [place] [address] 09/12/2019 12:00:00 AM EDT eCW1 ([facility]) [facility] [address] [place] [address] [place] [address] 09/01/2019 12:00:00 AM EDT eCW1 ([facility]) [facility] GME Resident [address] [place] [phone] 08/01/2019 12:00:00 AM EDT eCW1 ([facility]) [facility] [address] [place] [address] [place] [address] 08/01/2019 12:00:00 AM EDT eCW1 ([facility]) [facility] [address] [place] [address] [place] [address] 07/31/2019 12:00:00 AM EDT eCW1 ([facility]) [facility] GME Resident [address] [place] [phone] 07/14/2019 12:00:00 AM EST eCW1 ([facility]) Outpatient 07/08/2019 08:19:00 AM EST [facility] [address] [place] [address] [place] [address] 06/25/2019 12:00:00 AM EST eCW1 ([facility]) [facility] GME Resident [address] [place] [phone] 06/23/2019 12:00:00 AM EST eCW1 ([facility]) [facility] [address] [place] [address] [place] [address] 04/28/2019 12:00:00 AM EST eCW1 ([facility]) Outpatient 04/17/2019 10:23:00 PM EST [facility] Outpatient Attender: Davie Lewis/Mu/Juventino/Re indl 04/07/2019 09:15:00 AM EST MEDENT ([facility]) Medications Medication Brand Name Start Date Product Form Dose Route Admi nistrative Instructions Pharmacy Instructions Status Indications Reaction Description Data Source(s) 10 mg 06/01/2020 12:00:00 AM EST tablet 30 TAKE ONE TABLET BY MOUTH EVERY DAY TAKE ONE TABLET BY MOUTH EVERY DAY SOLD: 06/02/2020 [facility] 17 gram/dose 06/01/2020 12:00:00 AM EST powder 510 USE DIRECTED BY DOCTOR FOR BOWEL PREP USE DIRECTED BY DOCTOR FOR BOWEL PREP SOLD: 06/02/2020 [facility] 200 mcg 05/24/2020 12:00:00 AM EST tablet 30 TAKE ONE TABLET BY MOUTH EVERY DAY IN THE MORNING ON AN EMPTY STOMACH TAKE ONE TABLET BY MOUTH EVERY DAY IN MORNING ON AN EMPTY STOMACH SOLD: 05/26/2020 [facility] pantoprazole 40 MG Delayed Release Oral Tablet PANTOPRAZOLE SODIUM 05/14/2020 12:00:00 AM EST tablet,delayed release (DR/EC) 30 T YONIS ONE TABLET BY MOUTH EVERY DAY TAKE ONE TABLET BY MOUTH EVERY DAY SOLD: 05/21/2020 [facility] 100 unit/mL (3 mL) 05/10/2020 12:00:00 AM EST insulin pen 15 INJECT 45 UNITS UNDER THE SKIN AT NIGHT INJECT 45 UNITS UNDER THE SKIN AT NIGHT SOLD: 05/13/20 20 [facility] 20 mg 05/04/2020 12:00:00 AM EST tablet 60 TAKE ONE TABLET BY MOUTH TWICE A DAY TAKE ONE TABLET BY MOUTH TWICE A DAY SOLD: 05/04/2020 [facility] 20 mg 05/04/2020 12:00:00 AM EST tablet 60 TAKE ONE TABLET BY MOUTH TWICE A DAY TAKE ONE TABLET BY MOUTH TWICE A DAY SOLD: 06/02/2020 [facility] 17 gram/dose 04/30/2020 12:00:00 AM EST powder 510 USE DIRECTED BY MD FOR BOWEL PREP USE DIRECTED BY MD FOR BOWEL PREP SOLD: 05/04/2020 [facility] Bisacodyl 5 MG Delayed Release Oral Tablet [Dulcolax] Dulcol ax 04/30/2020 12:00:00 AM EST ORAL active M EDJEAN MARIE ([facility]) POLYETHYLENE GLYCOL 3350 142 MG/ML Oral Solution [Miralax] M iralax 04/30/2020 12:00:00 AM EST active Armin MORENO ([facility], ) Semglee 100 UNIT/ML Semglee 100 UNIT/ML 04/27/2020 12:00:00 AM EST active Semglee 100 UNIT/ML eCW1 (Counts include 234 beds at the [facility]) Semglee 100 UNIT/ML Semglee 100 UNIT/ML 04/27/2020 12:00:00 AM EST active Semglee 100 UNIT/ML eCW1 (Counts include 234 beds at the [facility]) 1 gram 04/07/2020 12:00:00 AM EST tablet 120 TAKE 1 TABLET BY MOUTH 30 MINUTES PRIOR TO MEALS AND AT BEDTIME TAKE 1 TABLET BY MOUTH 30 MINUTES PRIOR TO MEALS AND AT BEDTIME SOLD: 05/13/2020 [facility] 1 gram 04/07/2020 12:00:00 AM EST tablet 120 TAKE 1 TABLET BY MOUTH 30 MINUTES PRIOR TO MEALS AND AT BEDTIME TAKE 1 TABLET BY MOUTH 30 MINUTES PRIOR TO MEALS AND AT BEDTIME SOLD: 04/15/2020 [facility] 500 mg 03/22/2020 12:00:00 AM EST tablet 30 TAKE ONE TABLET BY MOUTH TWICE A DAY WITH FOOD TAKE ONE TABLET BY MOUTH TWICE A DAY WITH FOOD SOLD: 020 [facility] Cyclobenzaprine hydrochloride 10 MG Oral Tablet CYCLOBENZAPR INE HCL 03/22/2020 12:00:00 AM EST tablet 15 TAKE ONE TABLET BY MOUTH THREE TIMES A DAY NEEDED FOR MUSCLE SPASMS TAKE ONE TABLET BY MOUTH THREE TIMES A D AY NEEDED FOR MUSCLE SPASMS SOLD: 03/23/2020 [facility] BLOOD SUGAR DIAGNOSTIC 03/13/2020 12:00:00 AM EDT strip 100 USE TO TEST FOUR TIMES A DAY USE TO TEST FOUR TIMES A DAY SOLD: 04/15/2020 [facility] BLOOD SUGAR DIAGNOSTIC 03/13/2020 12:00:00 AM EDT strip 100 USE TO TEST FOUR TIMES A DAY USE TO TEST FOUR TIMES A DAY SOLD: 05/13/2020 [facility] 200 mcg 02/28/2020 12:00:00 AM EDT tablet 30 TAKE ONE TABLET BY MOUTH EVERY MORNING ON EMPTY STOMACH DAILY TAKE ONE TABLET BY MOUTH EVERY MORNING O N EMPTY STOMACH DAILY SOLD: 03/23/2020 [facility] 200 mcg 02/28/2020 12:00:00 AM EDT tablet 30 TAKE ONE TABLET BY MOUTH EVERY MORNING ON EMPTY STOMACH DAILY TAKE ONE TABLET BY MOUTH EVERY MORNING O N EMPTY STOMACH DAILY SOLD: 04/25/2020 [facility] 200 mcg 02/28/2020 12:00:00 AM EDT tablet 30 TAKE ONE TABLET BY MOUTH EVERY MORNING ON EMPTY STOMACH DAILY TAKE ONE TABLET BY MOUTH EVERY MORNING O N EMPTY STOMACH DAILY SOLD: 02/29/2020 [facility] Basaglar Kwikpen Basaglar Kwikpen 02/23/2020 12:00:00 AM EDT active MEDENT ([facility] Naproxen sodium 220 MG Oral Tablet [Aleve] Aleve 02/23/2020 12:0 0:00 AM EDT active [facility] ([facility]) Amlodipine 10 MG Oral Tablet Amlodipine Besylate 02/23/2020 12:00:00 AM EDT ORAL active [facility] ([facility]) Admelog Admelog 02/23/2020 12:00:00 AM EDT active MEDENT ([facility]) Lisinopril 20 MG Oral Tablet Lisinopril 02/23/2020 12:00:00 AM EDT ORAL active [facility] ([facility]) pantoprazole 40 MG Delayed Release Oral Tablet Pantoprazole Sodium 02/23/2020 12:00:00 AM EDT ORAL active M EDENT ([facility]) Levothyroxine Sodium 0.2 MG Oral Tablet Levothyroxine Sodium 02/23/2020 12:00:00 AM EDT ORAL active [facility] ([facility]) Sucralfate 1000 MG Oral Tablet Sucralfate 02/23/2020 12:00:00 AM EDT ORAL active [facility] ([facility]) pantoprazole 40 MG Delayed Release Oral Tablet PANTOPRAZOLE SODIUM 02/12/2020 12:00:00 AM EDT tablet,delayed release (DR/EC) 30 T YONIS ONE TABLET BY MOUTH EVERY DAY TAKE ONE TABLET BY MOUTH EVERY DAY SOLD: 02/19/2020 [facility] pantoprazole 40 MG Delayed Release Oral Tablet PANTOPRAZOLE SODIUM 02/12/2020 12:00:00 AM EDT tablet,delayed release (DR/EC) 30 T YONIS ONE TABLET BY MOUTH EVERY DAY TAKE ONE TABLET BY MOUTH EVERY DAY SOLD: 04/16/2020 [facility] 1 gram 02/07/2020 12:00:00 AM EDT tablet 120 TAKE 1 TABLET BY MOUTH 30 MINUTES PRIOR TO MEALS AND AT BEDTIME TAKE 1 TABLET BY MOUTH 30 MINUTES PRIOR TO MEALS AND AT BEDTIME SOLD: 03/10/2020 [facility] 1 gram 02/07/2020 12:00:00 AM EDT tablet 120 TAKE 1 TABLET BY MOUTH 30 MINUTES PRIOR TO MEALS AND AT BEDTIME TAKE 1 TABLET BY MOUTH 30 MINUTES PRIOR TO MEALS AND AT BEDTIME SOLD: 02/10/2020 [facility] 100 unit/mL (3 mL) 01/30/2020 12:00:00 AM EDT insulin pen 21 INJECT 69 UNITS DAILY INJECT 69 UNITS DAILY SOLD: 04/16/2020 [facility] 100 unit/mL (3 mL) 01/30/2020 12:00:00 AM EDT insulin pen 21 INJECT 69 UNITS DAILY INJECT 69 UNITS DAILY SOLD: 03/23/2020 [facility] 100 unit/mL (3 mL) 01/30/2020 12:00:00 AM EDT insulin pen 21 INJECT 69 UNITS DAILY INJECT 69 UNITS DAILY SOLD: 01/31/2020 [facility] 100 unit/mL (3 mL) 01/30/2020 12:00:00 AM EDT insulin pen 21 INJECT 69 UNITS DAILY INJECT 69 UNITS DAILY SOLD: 02/24/2020 [facility] 100 unit/mL (3 mL) 01/30/2020 12:00:00 AM EDT insulin pen 15 INJECT 69 UNITS DAILY INJECT 69 UNITS DAILY SOLD: 05/26/2020 [facility] 10 mg 01/30/2020 12:00:00 AM EDT tablet 30 TAKE ONE TABLET BY MOUTH EVERY DAY TAKE ONE TABLET BY MOUTH EVERY DAY SOLD: 05/04/2020 [facility] 10 mg 01/30/2020 12:00:00 AM EDT tablet 30 TAKE ONE TABLET BY MOUTH EVERY DAY TAKE ONE TABLET BY MOUTH EVERY DAY SOLD: 02/29/2020 [facility] 10 mg 01/30/2020 12:00:00 AM EDT tablet 30 TAKE ONE TABLET BY MOUTH EVERY DAY TAKE ONE TABLET BY MOUTH EVERY DAY SOLD: 01/31/2020 [facility] 10 mg 01/30/2020 12:00:00 AM EDT tablet 30 TAKE ONE TABLET BY MOUTH EVERY DAY TAKE ONE TABLET BY MOUTH EVERY DAY SOLD: 04/02/2020 [facility] 1 gram 01/19/2020 12:00:00 AM EDT tablet 100 TAKE 1 TABLET FOUR TIMES A DAY ON EMPTY STOMACH 1 HOUR BEFORE MEALS AND AT BEDTIME TAKE 1 TABLET FOUR TIMES A DAY ON EMPTY STOMACH 1 HOUR BEFORE MEALS AND AT BEDTIME SOLD: 01/19/2020 [facility] pantoprazole 40 MG Delayed Release Oral Tablet PANTOPRAZOLE SODIUM 01/19/2020 12:00:00 AM EDT tablet,delayed release (DR/EC) 30 T YONIS ONE TABLET BY MOUTH EVERY DAY TAKE ONE TABLET BY MOUTH EVERY DAY SOLD: 01/19/2020 [facility] 20 mg 01/10/2020 12:00:00 AM EDT capsule,delayed release (DR/EC) 30 TAKE ONE CAPSULE BY MOUTH EVERY DAY DIRECTED TAKE ONE CAPSULE BY MOUTH EVERY DAY DIRECTED SOLD: 01/11/2020 [facility] 20 mg 01/10/2020 12:00:00 AM EDT capsule,delayed release (DR/EC) 30 TAKE ONE CAPSULE BY MOUTH EVERY DAY DIRECTED TAKE ONE CAPSULE BY MOUTH EVERY DAY DIRECTED SOLD: 02/10/2020 [facility] 32 gauge x 5/32" 01/09/2020 12:00:00 AM EDT needle 120 USE 1 NEEDLE UNDER THE SKIN FOUR TIMES A DAY USE 1 NEEDLE UNDER THE SKIN FOUR TIMES A DAY SOLD: 02/10/2020 [facility] 32 gauge x 5/32" 01/09/2020 12:00:00 AM EDT needle 120 USE 1 NEEDLE UNDER THE SKIN FOUR TIMES A DAY USE 1 NEEDLE UNDER THE SKIN FOUR TIMES A DAY SOLD: 03/10/2020 [facility] 32 gauge x 5/32" 01/09/2020 12:00:00 AM EDT needle 120 USE 1 NEEDLE UNDER THE SKIN FOUR TIMES A DAY USE 1 NEEDLE UNDER THE SKIN FOUR TIMES A DAY SOLD: 01/11/2020 [facility] 32 gauge x 5/32" 01/09/2020 12:00:00 AM EDT needle 120 USE 1 NEEDLE UNDER THE SKIN FOUR TIMES A DAY USE 1 NEEDLE UNDER THE SKIN FOUR TIMES A DAY SOLD: 04/15/2020 [facility] 32 gauge x 5/32" 01/09/2020 12:00:00 AM EDT needle 120 USE 1 NEEDLE UNDER THE SKIN FOUR TIMES A DAY USE 1 NEEDLE UNDER THE SKIN FOUR TIMES A DAY SOLD: 05/13/2020 [facility] 100 mg 12/30/2019 12:00:00 AM EDT capsule 2 TAKE 1 CAPSULE BY MOUTH NOW AND 1 AT BEDTIME TAKE 1 CAPSULE BY MOUTH NOW AND 1 AT BEDTIME SOLD: 12/30/2019 [facility] NITROFURANTOIN, MACROCRYSTALS 100 MG Oral Capsule Nitrofuran toin Macrocrystal 12/30/2019 12:00:00 AM EDT ORAL completed MEDENT ([employer]) 100 unit/mL (3 mL) 12/13/2019 12:00:00 AM EDT insulin pen 15 INJECT 50 UNITS UNDER THE SKIN AT NIGHT INJECT 50 UNITS UNDER THE SKIN AT NIGHT SOLD: 12/15/2019 [facility] 100 unit/mL (3 mL) 12/13/2019 12:00:00 AM EDT insulin pen 15 INJECT 50 UNITS UNDER THE SKIN AT NIGHT INJECT 50 UNITS UNDER THE SKIN AT NIGHT SOLD: 01/08/2020 [facility] 200 mcg 11/24/2019 12:00:00 AM EDT tablet 30 TAKE ONE TABLET BY MOUTH EVERY DAY IN THE MORNING ON AN EMPTY STOMACH TAKE ONE TABLET BY MOUTH EVERY DAY IN MORNING ON AN EMPTY STOMACH SOLD: 01/23/2020 [facility] 200 mcg 11/24/2019 12:00:00 AM EDT tablet 30 TAKE ONE TABLET BY MOUTH EVERY DAY IN THE MORNING ON AN EMPTY STOMACH TAKE ONE TABLET BY MOUTH EVERY DAY IN MORNING ON AN EMPTY STOMACH SOLD: 11/25/2019 [facility] 200 mcg 11/24/2019 12:00:00 AM EDT tablet 30 TAKE ONE TABLET BY MOUTH EVERY DAY IN THE MORNING ON AN EMPTY STOMACH TAKE ONE TABLET BY MOUTH EVERY DAY IN MORNING ON AN EMPTY STOMACH SOLD: 12/24/2019 [facility] 90 mcg/actuation 11/01/2019 12:00:00 AM EDT HFA aerosol inha ler 8 INHALE ONE PUFF BY MOUTH EVERY 4 HOURS NEEDED INHALE ONE PUFF BY MOUTH EVERY 4 HOURS A S NEEDED SOLD: 11/04/2019 [facility] 90 mcg/actuation 11/01/2019 12:00:00 AM EDT HFA aerosol inha ler 8 INHALE ONE PUFF BY MOUTH EVERY 4 HOURS NEEDED INHALE ONE PUFF BY MOUTH EVERY 4 HOURS A S NEEDED SOLD: 12/05/2019 [facility] 90 mcg/actuation 11/01/2019 12:00:00 AM EDT HFA aerosol inha ler 8 INHALE ONE PUFF BY MOUTH EVERY 4 HOURS NEEDED INHALE ONE PUFF BY MOUTH EVERY 4 HOURS A S NEEDED SOLD: 01/08/2020 [facility] 20 mg 11/01/2019 12:00:00 AM EDT tablet 60 TAKE ONE TABLET BY MOUTH TWICE A DAY TAKE ONE TABLET BY MOUTH TWICE A DAY SOLD: 01/08/2020 [facility] 20 mg 11/01/2019 12:00:00 AM EDT tablet 60 TAKE ONE TABLET BY MOUTH TWICE A DAY TAKE ONE TABLET BY MOUTH TWICE A DAY SOLD: 12/05/2019 [facility] 20 mg 11/01/2019 12:00:00 AM EDT tablet 60 TAKE ONE TABLET BY MOUTH TWICE A DAY TAKE ONE TABLET BY MOUTH TWICE A DAY SOLD: 02/10/2020 [facility] 20 mg 11/01/2019 12:00:00 AM EDT tablet 60 TAKE ONE TABLET BY MOUTH TWICE A DAY TAKE ONE TABLET BY MOUTH TWICE A DAY SOLD: 11/04/2019 [facility] 100 unit/mL 10/27/2019 12:00:00 AM EDT insulin pen 15 INJECT UNDER THE SKIN ONCE DAILY MAXIMUM DAILY DOSE = 60 UNITS INJECT UNDER THE SKIN ONCE DAILY MAXIMUM DAILY DOSE = 60 UNITS SOLD: 01/19/2020 [facility] 100 unit/mL 10/27/2019 12:00:00 AM EDT insulin pen 15 INJECT UNDER THE SKIN ONCE DAILY MAXIMUM DAILY DOSE = 60 UNITS INJECT UNDER THE SKIN ONCE DAILY MAXIMUM DAILY DOSE = 60 UNITS SOLD: 11/25/2019 [facility] 100 unit/mL 10/27/2019 12:00:00 AM EDT insulin pen 15 INJECT UNDER THE SKIN ONCE DAILY MAXIMUM DAILY DOSE = 60 UNITS INJECT UNDER THE SKIN ONCE DAILY MAXIMUM DAILY DOSE = 60 UNITS SOLD: 12/24/2019 [facility] 100 unit/mL 10/27/2019 12:00:00 AM EDT insulin pen 15 INJECT UNDER THE SKIN ONCE DAILY MAXIMUM DAILY DOSE = 60 UNITS INJECT UNDER THE SKIN ONCE DAILY MAXIMUM DAILY DOSE = 60 UNITS SOLD: 10/28/2019 [facility] 100 mg 10/07/2019 12:00:00 AM EDT capsule 14 TAKE ONE CAPSULE BY MOUTH TWICE A DAY FOR 7 DAYS TAKE ONE CAPSULE BY MOUTH TWICE A DAY FOR 7 DAYS SOLD: 10/07/2019 [facility] 200 mg 10/07/2019 12:00:00 AM EDT tablet 6 TAKE ONE TABLET BY MOUTH THREE TIMES A DAY FOR 2 DAYS TAKE ONE TABLET BY MOUTH THREE TIMES A DAY FOR 2 DAYS SOLD: 10/07/2019 [facility] BLOOD SUGAR DIAGNOSTIC 10/04/2019 12:00:00 AM EDT strip 100 USE TO TEST BLOOD SUGAR FOUR TIMES A DAY USE TO TEST BLOOD SUGAR FOUR TIMES A DAY SOLD: 12/24/2019 [facility] BLOOD SUGAR DIAGNOSTIC 10/04/2019 12:00:00 AM EDT strip 100 USE TO TEST BLOOD SUGAR FOUR TIMES A DAY USE TO TEST BLOOD SUGAR FOUR TIMES A DAY SOLD: 01/31/2020 [facility] BLOOD SUGAR DIAGNOSTIC 10/04/2019 12:00:00 AM EDT strip 100 USE TO TEST BLOOD SUGAR FOUR TIMES A DAY USE TO TEST BLOOD SUGAR FOUR TIMES A DAY SOLD: 10/07/2019 [facility] BLOOD SUGAR DIAGNOSTIC 10/04/2019 12:00:00 AM EDT strip 100 USE TO TEST BLOOD SUGAR FOUR TIMES A DAY USE TO TEST BLOOD SUGAR FOUR TIMES A DAY SOLD: 11/16/2019 [facility] 24 HR mirabegron 25 MG Extended Release Oral Tablet [M yrbetriq] Myrbetriq 25 MG Myrbetriq 25 MG 09/29/2019 12:00:00 AM EDT active 1 tablet eCW1 ([facility]) BLOOD SUGAR DIAGNOSTIC 09/15/2019 12:00:00 AM EDT strip 100 TEST FOUR TIMES A DAY TEST FOUR TIMES A DAY SOLD: 10/28/2019 [facility] BLOOD SUGAR DIAGNOSTIC 09/15/2019 12:00:00 AM EDT strip 100 TEST FOUR TIMES A DAY TEST FOUR TIMES A DAY SOLD: 09/22/2019 [facility] BLOOD SUGAR DIAGNOSTIC 09/15/2019 12:00:00 AM EDT strip 100 TEST FOUR TIMES A DAY TEST FOUR TIMES A DAY SOLD: 02/19/2020 [facility] BLOOD SUGAR DIAGNOSTIC 09/15/2019 12:00:00 AM EDT strip 100 TEST FOUR TIMES A DAY TEST FOUR TIMES A DAY SOLD: 12/05/2019 [facility] BLOOD SUGAR DIAGNOSTIC 09/15/2019 12:00:00 AM EDT strip 100 TEST FOUR TIMES A DAY TEST FOUR TIMES A DAY SOLD: 01/08/2020 [facility] 10 mg 09/08/2019 12:00:00 AM EDT tablet 30 TAKE 1 TABLET BY MOUTH ONCE DAILY TAKE 1 TABLET BY MOUTH ONCE DAILY SOLD: 11/27/2019 [facility] 10 mg 09/08/2019 12:00:00 AM EDT tablet 30 TAKE 1 TABLET BY MOUTH ONCE DAILY TAKE 1 TABLET BY MOUTH ONCE DAILY SOLD: 09/10/2019 [facility] 10 mg 09/08/2019 12:00:00 AM EDT tablet 30 TAKE 1 TABLET BY MOUTH ONCE DAILY TAKE 1 TABLET BY MOUTH ONCE DAILY SOLD: 11/04/2019 [facility] 10 mg 09/08/2019 12:00:00 AM EDT tablet 30 TAKE 1 TABLET BY MOUTH ONCE DAILY TAKE 1 TABLET BY MOUTH ONCE DAILY SOLD: 10/07/2019 [facility] Omeprazole Magnesium 20 MG UNK 09/05/2019 12:00:00 AM EDT active Omeprazole Magnesium 20 MG eCW1 ([facility]) Omeprazole 20 MG Delayed Release Oral Tablet Omeprazol e Magnesium 20 MG Omeprazole Magnesium 20 MG 09/05/2019 12:00:00 AM EDT active Omeprazole Magnesium 20 MG eCW1 ([facility]) Omeprazole 20 MG Delayed Release Oral Tablet Omeprazol e Magnesium 20 MG Omeprazole Magnesium 20 MG 09/05/2019 12:00:00 AM EDT active Omeprazole Magnesium 20 MG eCW1 ([facility]) Omeprazole 20 MG Delayed Release Oral Tablet Omeprazol e Magnesium 20 MG Omeprazole Magnesium 20 MG 09/05/2019 12:00:00 AM EDT active Omeprazole Magnesium 20 MG eCW1 ([facility]) Omeprazole 20 MG Delayed Release Oral Tablet Omeprazol e Magnesium 20 MG Omeprazole Magnesium 20 MG 09/05/2019 12:00:00 AM EDT active Omeprazole Magnesium 20 MG eCW1 ([facility]) Omeprazole 20 MG Delayed Release Oral Tablet Omeprazol e Magnesium 20 MG Omeprazole Magnesium 20 MG 09/05/2019 12:00:00 AM EDT active Omeprazole Magnesium 20 MG eCW1 ([facility]) 20 mg 09/05/2019 12:00:00 AM EDT tablet,delayed release (DR/EC) 30 TAKE ONE TABLET BY MOUTH EVERY DAY 30 MINUTES BEFORE MORNING MEAL TAKE ONE TABLET BY MOUTH EVERY DAY 30 MINUTES BEFORE MORNING MEAL SOLD: 10/04/2019 [facility] Omeprazole Magnesium 20 MG UNK 09/05/2019 12:00:00 AM EDT active 1 tablet 30 minutes before morning meal eCW1 ([facility]) Omeprazole Magnesium 20 MG UNK 09/05/2019 12:00:00 AM EDT active 1 tablet 30 minutes before morning meal eCW1 ([facility]) Omeprazole Magnesium 20 MG UNK 09/05/2019 12:00:00 AM EDT active 1 tablet 30 minutes before morning meal eCW1 ([facility]) 20 mg 09/05/2019 12:00:00 AM EDT tablet,delayed release (DR/EC) 30 TAKE ONE TABLET BY MOUTH EVERY DAY 30 MINUTES BEFORE MORNING MEAL TAKE ONE TABLET BY MOUTH EVERY DAY 30 MINUTES BEFORE MORNING MEAL SOLD: 11/04/2019 [facility] 20 mg 09/05/2019 12:00:00 AM EDT tablet,delayed release (DR/EC) 30 TAKE ONE TABLET BY MOUTH EVERY DAY 30 MINUTES BEFORE MORNING MEAL TAKE ONE TABLET BY MOUTH EVERY DAY 30 MINUTES BEFORE MORNING MEAL SOLD: 09/07/2019 [facility] Omeprazole 20 MG Delayed Release Oral Tablet Omeprazol e Magnesium 20 MG Omeprazole Magnesium 20 MG 09/05/2019 12:00:00 AM EDT active Omeprazole Magnesium 20 MG eCW1 ([facility]) 20 mg 09/05/2019 12:00:00 AM EDT tablet,delayed release (DR/EC) 30 TAKE ONE TABLET BY MOUTH EVERY DAY 30 MINUTES BEFORE MORNING MEAL TAKE ONE TABLET BY MOUTH EVERY DAY 30 MINUTES BEFORE MORNING MEAL SOLD: 12/05/2019 [facility] Omeprazole Magnesium 20 MG UNK 09/05/2019 12:00:00 AM EDT active Omeprazole Magnesium 20 MG eCW1 ([facility]) Omeprazole Magnesium 20 MG UNK 09/05/2019 12:00:00 AM EDT active Omeprazole Magnesium 20 MG eCW1 ([facility]) Omeprazole 20 MG Delayed Release Oral Tablet Omeprazol e Magnesium 20 MG Omeprazole Magnesium 20 MG 09/05/2019 12:00:00 AM EDT active Omeprazole Magnesium 20 MG eCW1 ([facility]) Omeprazole 20 MG Delayed Release Oral Tablet Omeprazol e Magnesium 20 MG Omeprazole Magnesium 20 MG 09/05/2019 12:00:00 AM EDT active Omeprazole Magnesium 20 MG eCW1 ([facility]) 32 gauge x 5/32" 08/15/2019 12:00:00 AM EDT needle 60 USE FOUR TIMES A DAY USE FOUR TIMES A DAY SOLD: 09/07/2019 [facility] 32 gauge x 5/32" 08/15/2019 12:00:00 AM EDT needle 60 USE FOUR TIMES A DAY USE FOUR TIMES A DAY SOLD: 11/06/2019 [facility] 32 gauge x 5/32" 08/15/2019 12:00:00 AM EDT needle 60 USE FOUR TIMES A DAY USE FOUR TIMES A DAY SOLD: 09/22/2019 [facility] 32 gauge x 5/32" 08/15/2019 12:00:00 AM EDT needle 60 USE FOUR TIMES A DAY USE FOUR TIMES A DAY SOLD: 08/25/2019 [facility] 32 gauge x 5/32" 08/15/2019 12:00:00 AM EDT needle 60 USE FOUR TIMES A DAY USE FOUR TIMES A DAY SOLD: 10/20/2019 [facility] 28 gauge 08/13/2019 12:00:00 AM EDT misc 100 USE FOUR TIMES A DAY USE FOUR TIMES A DAY SOLD: 09/05/2019 [facility] 28 gauge 08/13/2019 12:00:00 AM EDT misc 100 USE FOUR TIMES A DAY USE FOUR TIMES A DAY SOLD: 08/14/2019 [facility] 28 gauge 08/13/2019 12:00:00 AM EDT misc 100 USE FOUR TIMES A DAY USE FOUR TIMES A DAY SOLD: 10/28/2019 [facility] 28 gauge 08/13/2019 12:00:00 AM EDT misc 100 USE FOUR TIMES A DAY USE FOUR TIMES A DAY SOLD: 10/04/2019 [facility] 80-4.5 mcg/actuation 08/02/2019 12:00:00 AM EDT HFA aerosol inhaler 10 INHALE 2 PUFFS BY MOUTH ONCE DAILY INHALE 2 PUFFS BY MOUTH ONCE DAILY SOLD: 02/10/2020 [facility] 120 ACTUAT Budesonide 0.08 MG/ACTUAT / f ormoterol fumarate 0.0045 MG/ACTUAT Metered Dose Inhaler [Symbicort] Symbicort 80-4.5 MCG/ACT Symbicort 80-4.5 MCG/ACT 08/02/2019 12:00:00 AM EDT active 2 puffs eCW1 ([facility]) cetirizine hydrochloride 5 MG Oral Tablet Cetirizine H Cl 5 MG Cetirizine HCl 5 MG 08/02/2019 12:00:00 AM EDT suspended 1 tablet eCW1 ([facility]) 120 ACTUAT Budesonide 0.08 MG/ACTUAT / f ormoterol fumarate 0.0045 MG/ACTUAT Metered Dose Inhaler [Symbicort] Symbicort 80-4.5 MCG/ACT Symbicort 80-4.5 MCG/ACT 08/02/2019 12:00:00 AM EDT 2.0 {puffs} activ e Symbicort 80- 4.5 MCG/ACT eCW1 ([facility]) 120 ACTUAT Budesonide 0.08 MG/ACTUAT / f ormoterol fumarate 0.0045 MG/ACTUAT Metered Dose Inhaler [Symbicort] Symbicort 80-4.5 MCG/ACT Symbicort 80-4.5 MCG/ACT 08/02/2019 12:00:00 AM EDT 2.0 {puffs} activ e Symbicort 80- 4.5 MCG/ACT eCW1 ([facility]) 80-4.5 mcg/actuation 08/02/2019 12:00:00 AM EDT HFA aerosol inhaler 10 INHALE 2 PUFFS BY MOUTH ONCE DAILY INHALE 2 PUFFS BY MOUTH ONCE DAILY SOLD: 10/04/2019 [facility] cetirizine hydrochloride 5 MG Oral Tablet Cetirizine H Cl 5 MG Cetirizine HCl 5 MG 08/02/2019 12:00:00 AM EDT active 1 tablet eCW1 ([facility]) 120 ACTUAT Budesonide 0.08 MG/ACTUAT / f ormoterol fumarate 0.0045 MG/ACTUAT Metered Dose Inhaler [Symbicort] Symbicort 80-4.5 MCG/ACT Symbicort 80-4.5 MCG/ACT 08/02/2019 12:00:00 AM EDT 2.0 {puffs} activ e Symbicort 80- 4.5 MCG/ACT eCW1 ([facility]) 5 mg 08/02/2019 12:00:00 AM EDT tablet 30 TAKE ONE TABLET BY MOUTH EVERY DAY TAKE ONE TABLET BY MOUTH EVERY DAY SOLD: 08/02/2019 [facility] 120 ACTUAT Budesonide 0.08 MG/ACTUAT / f ormoterol fumarate 0.0045 MG/ACTUAT Metered Dose Inhaler [Symbicort] Symbicort 80-4.5 MCG/ACT Symbicort 80-4.5 MCG/ACT 08/02/2019 12:00:00 AM EDT 2.0 {puffs} activ e Symbicort 80- 4.5 MCG/ACT eCW1 ([facility]) 5 mg 08/02/2019 12:00:00 AM EDT tablet 30 TAKE ONE TABLET BY MOUTH EVERY DAY TAKE ONE TABLET BY MOUTH EVERY DAY SOLD: 10/04/2019 [facility] 80-4.5 mcg/actuation 08/02/2019 12:00:00 AM EDT HFA aerosol inhaler 10 INHALE 2 PUFFS BY MOUTH ONCE DAILY INHALE 2 PUFFS BY MOUTH ONCE DAILY SOLD: 12/05/2019 [facility] 120 ACTUAT Budesonide 0.08 MG/ACTUAT / f ormoterol fumarate 0.0045 MG/ACTUAT Metered Dose Inhaler [Symbicort] Symbicort 80-4.5 MCG/ACT Symbicort 80-4.5 MCG/ACT 08/02/2019 12:00:00 AM EDT active 2 puffs eCW1 ([facility]) 120 ACTUAT Budesonide 0.08 MG/ACTUAT / f ormoterol fumarate 0.0045 MG/ACTUAT Metered Dose Inhaler [Symbicort] Symbicort 80-4.5 MCG/ACT Symbicort 80-4.5 MCG/ACT 08/02/2019 12:00:00 AM EDT 2.0 {puffs} activ e Symbicort 80- 4.5 MCG/ACT eCW1 ([facility]) 5 mg 08/02/2019 12:00:00 AM EDT tablet 30 TAKE ONE TABLET BY MOUTH EVERY DAY TAKE ONE TABLET BY MOUTH EVERY DAY SOLD: 08/30/2019 [facility] 120 ACTUAT Budesonide 0.08 MG/ACTUAT / f ormoterol fumarate 0.0045 MG/ACTUAT Metered Dose Inhaler [Symbicort] Symbicort 80-4.5 MCG/ACT Symbicort 80-4.5 MCG/ACT 08/02/2019 12:00:00 AM EDT 2.0 {puffs} activ e Symbicort 80- 4.5 MCG/ACT eCW1 ([facility]) 120 ACTUAT Budesonide 0.08 MG/ACTUAT / f ormoterol fumarate 0.0045 MG/ACTUAT Metered Dose Inhaler [Symbicort] Symbicort 80-4.5 MCG/ACT Symbicort 80-4.5 MCG/ACT 08/02/2019 12:00:00 AM EDT active 2 puffs eCW1 ([facility]) 120 ACTUAT Budesonide 0.08 MG/ACTUAT / f ormoterol fumarate 0.0045 MG/ACTUAT Metered Dose Inhaler [Symbicort] Symbicort 80-4.5 MCG/ACT Symbicort 80-4.5 MCG/ACT 08/02/2019 12:00:00 AM EDT 2.0 {puffs} activ e Symbicort 80- 4.5 MCG/ACT eCW1 ([facility]) 120 ACTUAT Budesonide 0.08 MG/ACTUAT / f ormoterol fumarate 0.0045 MG/ACTUAT Metered Dose Inhaler [Symbicort] Symbicort 80-4.5 MCG/ACT Symbicort 80-4.5 MCG/ACT 08/02/2019 12:00:00 AM EDT 2.0 {puffs} activ e Symbicort 80- 4.5 MCG/ACT eCW1 ([facility]) 120 ACTUAT Budesonide 0.08 MG/ACTUAT / f ormoterol fumarate 0.0045 MG/ACTUAT Metered Dose Inhaler [Symbicort] Symbicort 80-4.5 MCG/ACT Symbicort 80-4.5 MCG/ACT 08/02/2019 12:00:00 AM EDT 2.0 {puffs} activ e Symbicort 80- 4.5 MCG/ACT eCW1 ([facility]) 120 ACTUAT Budesonide 0.08 MG/ACTUAT / f ormoterol fumarate 0.0045 MG/ACTUAT Metered Dose Inhaler [Symbicort] Symbicort 80-4.5 MCG/ACT Symbicort 80-4.5 MCG/ACT 08/02/2019 12:00:00 AM EDT 2.0 {puffs} activ e Symbicort 80- 4.5 MCG/ACT eCW1 ([facility]) 120 ACTUAT Budesonide 0.08 MG/ACTUAT / f ormoterol fumarate 0.0045 MG/ACTUAT Metered Dose Inhaler [Symbicort] Symbicort 80-4.5 MCG/ACT Symbicort 80-4.5 MCG/ACT 08/02/2019 12:00:00 AM EDT 2.0 {puffs} activ e Symbicort 80- 4.5 MCG/ACT eCW1 ([facility]) 80-4.5 mcg/actuation 08/02/2019 12:00:00 AM EDT HFA aerosol inhaler 10 INHALE 2 PUFFS BY MOUTH ONCE DAILY INHALE 2 PUFFS BY MOUTH ONCE DAILY SOLD: 08/02/2019 [facility] Albuterol Sulfate HFA 108 (90 Base) MCG/ACT Albuterol Sulfate HFA 108 (90 Base) MCG/ACT 08/01/2019 12:00:00 AM EDT active 1 puff as needed eCW1 ([facility]) Albuterol Sulfate HFA 108 (90 Base) MCG/ACT Albuterol Sulfate HFA 108 (90 Base) MCG/ACT 08/01/2019 12:00:00 AM EDT 1.0 {puff_as_needed} active Albuterol Sulfate HFA 108 (90 Base) MCG/ACT eCW1 ([facility]) Albuterol Sulfate HFA 108 (90 Base) MCG/ACT Albuterol Sulfate HFA 108 (90 Base) MCG/ACT 08/01/2019 12:00:00 AM EDT active 1 puff as needed eCW1 ([facility]) 90 mcg/actuation 08/01/2019 12:00:00 AM EDT HFA aerosol inha ler 8 INHALE ONE PUFF BY MOUTH EVERY 4 HOURS NEEDED INHALE ONE PUFF BY MOUTH EVERY 4 HOURS A S NEEDED SOLD: 10/04/2019 [facility] Albuterol Sulfate HFA 108 (90 Base) MCG/ACT Albuterol Sulfate HFA 108 (90 Base) MCG/ACT 08/01/2019 12:00:00 AM EDT active 1 puff as needed eCW1 ([facility]) 90 mcg/actuation 08/01/2019 12:00:00 AM EDT HFA aerosol inha ler 8 INHALE ONE PUFF BY MOUTH EVERY 4 HOURS NEEDED INHALE ONE PUFF BY MOUTH EVERY 4 HOURS A S NEEDED SOLD: 08/30/2019 [facility] Albuterol Sulfate HFA 108 (90 Base) MCG/ACT Albuterol Sulfate HFA 108 (90 Base) MCG/ACT 08/01/2019 12:00:00 AM EDT 1.0 {puff_as_needed} active Albuterol Sulfate HFA 108 (90 Base) MCG/ACT eCW1 ([facility]) Albuterol Sulfate HFA 108 (90 Base) MCG/ACT Albuterol Sulfate HFA 108 (90 Base) MCG/ACT 08/01/2019 12:00:00 AM EDT 1.0 {puff_as_needed} active Albuterol Sulfate HFA 108 (90 Base) MCG/ACT eCW1 ([facility]) 90 mcg/actuation 08/01/2019 12:00:00 AM EDT HFA aerosol inha ler 8 INHALE ONE PUFF BY MOUTH EVERY 4 HOURS NEEDED INHALE ONE PUFF BY MOUTH EVERY 4 HOURS A S NEEDED SOLD: 08/01/2019 [facility] 100 unit/mL 07/08/2019 12:00:00 AM EST insulin pen 15 USE DIRECTED DAILY UNDER THE SKIN MAXIMUM DAILY DOSE = 60 UNITS USE DIRECTED DAILY UNDER THE SKIN MAXIMUM DAILY DOSE = 60 UNITS SOLD: 10/04/2019 [facility] 100 unit/mL 07/08/2019 12:00:00 AM EST insulin pen 15 USE DIRECTED DAILY UNDER THE SKIN MAXIMUM DAILY DOSE = 60 UNITS USE DIRECTED DAILY UNDER THE SKIN MAXIMUM DAILY DOSE = 60 UNITS SOLD: 07/16/2019 [facility] 100 unit/mL 07/08/2019 12:00:00 AM EST insulin pen 15 USE DIRECTED DAILY UNDER THE SKIN MAXIMUM DAILY DOSE = 60 UNITS USE DIRECTED DAILY UNDER THE SKIN MAXIMUM DAILY DOSE = 60 UNITS SOLD: 09/05/2019 [facility] 100 unit/mL 07/08/2019 12:00:00 AM EST insulin pen 15 USE DIRECTED DAILY UNDER THE SKIN MAXIMUM DAILY DOSE = 60 UNITS USE DIRECTED DAILY UNDER THE SKIN MAXIMUM DAILY DOSE = 60 UNITS SOLD: 08/12/2019 [facility] 20 mg 06/30/2019 12:00:00 AM EST tablet 60 TAKE 1 TABLET BY MOUTH TWO TIMES A DAY TAKE 1 TABLET BY MOUTH TWO TIMES A DAY SOLD: 07/01/2019 [facility] 20 mg 06/30/2019 12:00:00 AM EST tablet 60 TAKE 1 TABLET BY MOUTH TWO TIMES A DAY TAKE 1 TABLET BY MOUTH TWO TIMES A DAY SOLD: 08/01/2019 [facility] 20 mg 06/30/2019 12:00:00 AM EST tablet 60 TAKE 1 TABLET BY MOUTH TWO TIMES A DAY TAKE 1 TABLET BY MOUTH TWO TIMES A DAY SOLD: 10/04/2019 [facility] 20 mg 06/30/2019 12:00:00 AM EST tablet 60 TAKE 1 TABLET BY MOUTH TWO TIMES A DAY TAKE 1 TABLET BY MOUTH TWO TIMES A DAY SOLD: 08/30/2019 [facility] 100 unit/mL (3 mL) 06/26/2019 12:00:00 AM EST insulin pen 15 INJECT 50UNITS UNDER THE SKIN AT NIGHT INJECT 50UNITS UNDER THE SKIN AT NIGHT SOLD: 11/16/2019 [facility] 100 unit/mL (3 mL) 06/26/2019 12:00:00 AM EST insulin pen 15 INJECT 50UNITS UNDER THE SKIN AT NIGHT INJECT 50UNITS UNDER THE SKIN AT NIGHT SOLD: 09/22/2019 [facility] 100 unit/mL (3 mL) 06/26/2019 12:00:00 AM EST insulin pen 15 INJECT 50UNITS UNDER THE SKIN AT NIGHT INJECT 50UNITS UNDER THE SKIN AT NIGHT SOLD: 07/27/2019 [facility] 100 unit/mL (3 mL) 06/26/2019 12:00:00 AM EST insulin pen 15 INJECT 50UNITS UNDER THE SKIN AT NIGHT INJECT 50UNITS UNDER THE SKIN AT NIGHT SOLD: 08/25/2019 [facility] 100 unit/mL (3 mL) 06/26/2019 12:00:00 AM EST insulin pen 15 INJECT 50UNITS UNDER THE SKIN AT NIGHT INJECT 50UNITS UNDER THE SKIN AT NIGHT SOLD: 06/28/2019 [facility] 100 unit/mL (3 mL) 06/26/2019 12:00:00 AM EST insulin pen 15 INJECT 50UNITS UNDER THE SKIN AT NIGHT INJECT 50UNITS UNDER THE SKIN AT NIGHT SOLD: 10/20/2019 [facility] 150 mg 06/15/2019 12:00:00 AM EST capsule 30 TAKE ONE CAPSULE BY MOUTH AT BEDTIME TAKE ONE CAPSULE BY MOUTH AT BEDTIME SOLD: 07/14/2019 [facility] 150 mg 06/15/2019 12:00:00 AM EST capsule 30 TAKE ONE CAPSULE BY MOUTH AT BEDTIME TAKE ONE CAPSULE BY MOUTH AT BEDTIME SOLD: 08/12/2019 [facility] 150 mg 06/15/2019 12:00:00 AM EST capsule 30 TAKE ONE CAPSULE BY MOUTH AT BEDTIME TAKE ONE CAPSULE BY MOUTH AT BEDTIME SOLD: 06/15/2019 [facility] 4 % 06/15/2019 12:00:00 AM EST adhesive patch,medicate d 5 APPLY 1 PATCH TOPICALLY DAILY - 12 HOURS ON, 12 HOURS OFF APPLY 1 PATCH TOPICALLY DAILY - 12 HOURS ON, 12 HOURS OFF SOLD: 06/15/2019 [facility] Cyclobenzaprine hydrochloride 10 MG Oral Tablet CYCLOBENZAPR INE HCL 06/15/2019 12:00:00 AM EST tablet 10 TAKE ONE TABLET BY MOUTH AT BEDTIME TAKE ONE TABLET BY MOUTH AT BEDTIME SOLD: 06/15/2019 [facility] 500 mg 06/15/2019 12:00:00 AM EST tablet 20 TAKE ONE TABLET BY MOUTH TWICE A DAY FOR 10 DAYS TAKE ONE TABLET BY MOUTH TWICE A DAY FOR 10 DAYS SOLD: 06/15/2019 [facility] BLOOD SUGAR DIAGNOSTIC 05/16/2019 12:00:00 AM EST strip 100 USE DIRECTED TO TEST BLOOD GLUCOSE FOUR TIMES A DAY USE DIRECTED TO TEST BLOOD GLUCOSE FOUR TIMES A DAY SOLD: 08/01/2019 [facility] BLOOD SUGAR DIAGNOSTIC 05/16/2019 12:00:00 AM EST strip 100 USE DIRECTED TO TEST BLOOD GLUCOSE FOUR TIMES A DAY USE DIRECTED TO TEST BLOOD GLUCOSE FOUR TIMES A DAY SOLD: 05/20/2019 [facility] BLOOD SUGAR DIAGNOSTIC 05/16/2019 12:00:00 AM EST strip 100 USE DIRECTED TO TEST BLOOD GLUCOSE FOUR TIMES A DAY USE DIRECTED TO TEST BLOOD GLUCOSE FOUR TIMES A DAY SOLD: 06/14/2019 [facility] BLOOD SUGAR DIAGNOSTIC 05/16/2019 12:00:00 AM EST strip 100 USE DIRECTED TO TEST BLOOD GLUCOSE FOUR TIMES A DAY USE DIRECTED TO TEST BLOOD GLUCOSE FOUR TIMES A DAY SOLD: 08/25/2019 [facility] 10 mg 05/16/2019 12:00:00 AM EST tablet 30 TAKE ONE TABLET BY MOUTH EVERY DAY TAKE ONE TABLET BY MOUTH EVERY DAY SOLD: 07/14/2019 [facility] 10 mg 05/16/2019 12:00:00 AM EST tablet 30 TAKE ONE TABLET BY MOUTH EVERY DAY TAKE ONE TABLET BY MOUTH EVERY DAY SOLD: 06/21/2019 [facility] 10 mg 05/16/2019 12:00:00 AM EST tablet 30 TAKE ONE TABLET BY MOUTH EVERY DAY TAKE ONE TABLET BY MOUTH EVERY DAY SOLD: 08/12/2019 [facility] BLOOD SUGAR DIAGNOSTIC 05/16/2019 12:00:00 AM EST strip 100 USE DIRECTED TO TEST BLOOD GLUCOSE FOUR TIMES A DAY USE DIRECTED TO TEST BLOOD GLUCOSE FOUR TIMES A DAY SOLD: 07/08/2019 [facility] 10 mg 05/16/2019 12:00:00 AM EST tablet 30 TAKE ONE TABLET BY MOUTH EVERY DAY TAKE ONE TABLET BY MOUTH EVERY DAY SOLD: 05/20/2019 [facility] 32 gauge x 5/32" 05/01/2019 12:00:00 AM EST needle 60 USE FOUR TIMES A DAY USE FOUR TIMES A DAY SOLD: 07/04/2019 [facility] 32 gauge x 5/32" 05/01/2019 12:00:00 AM EST needle 60 USE FOUR TIMES A DAY USE FOUR TIMES A DAY SOLD: 05/20/2019 [facility] 32 gauge x 5/32" 05/01/2019 12:00:00 AM EST needle 60 USE FOUR TIMES A DAY USE FOUR TIMES A DAY SOLD: 07/17/2019 [facility] 32 gauge x 5/32" 05/01/2019 12:00:00 AM EST needle 60 USE FOUR TIMES A DAY USE FOUR TIMES A DAY SOLD: 06/21/2019 [facility] 32 gauge x 5/32" 05/01/2019 12:00:00 AM EST needle 60 USE FOUR TIMES A DAY USE FOUR TIMES A DAY SOLD: 05/01/2019 [facility] 28 gauge 04/29/2019 12:00:00 AM EST misc 100 USE DIRECTED FOUR TIMES A DAY USE DIRECTED FOUR TIMES A DAY SOLD: 06/02/2019 [facility] 28 gauge 04/29/2019 12:00:00 AM EST misc 100 USE DIRECTED FOUR TIMES A DAY USE DIRECTED FOUR TIMES A DAY SOLD: 05/01/2019 [facility] 28 gauge 04/29/2019 12:00:00 AM EST misc 100 USE DIRECTED FOUR TIMES A DAY USE DIRECTED FOUR TIMES A DAY SOLD: 06/28/2019 [facility] 28 gauge 04/29/2019 12:00:00 AM EST misc 100 USE DIRECTED FOUR TIMES A DAY USE DIRECTED FOUR TIMES A DAY SOLD: 07/22/2019 [facility] 100 unit/mL 04/01/2019 12:00:00 AM EST insulin pen 15 INJECT ONCE DAILY PER SLIDING SCALE UNDER THE SKIN MAXIMUM DAILY DOSE = 60 UNITS INJECT ONCE DAILY PER SLIDING SCALE UNDER THE SKIN MAXIMUM DAILY DOSE = 60 UNITS SOLD: 06/14/2019 [facility] 100 unit/mL 04/01/2019 12:00:00 AM EST insulin pen 15 INJECT ONCE DAILY PER SLIDING SCALE UNDER THE SKIN MAXIMUM DAILY DOSE = 60 UNITS INJECT ONCE DAILY PER SLIDING SCALE UNDER THE SKIN MAXIMUM DAILY DOSE = 60 UNITS SOLD: 05/20/2019 [facility] 100 unit/mL 04/01/2019 12:00:00 AM EST insulin pen 15 INJECT ONCE DAILY PER SLIDING SCALE UNDER THE SKIN MAXIMUM DAILY DOSE = 60 UNITS INJECT ONCE DAILY PER SLIDING SCALE UNDER THE SKIN MAXIMUM DAILY DOSE = 60 UNITS SOLD: 04/24/2019 [facility] 150 mg 03/19/2019 12:00:00 AM EST capsule 30 TAKE ONE CAPSULE BY MOUTH AT BEDTIME TAKE ONE CAPSULE BY MOUTH AT BEDTIME SOLD: 04/18/2019 [facility] 150 mg 03/19/2019 12:00:00 AM EST capsule 30 TAKE ONE CAPSULE BY MOUTH AT BEDTIME TAKE ONE CAPSULE BY MOUTH AT BEDTIME SOLD: 05/20/2019 [facility] 20 mg 03/02/2019 12:00:00 AM EDT tablet 60 TAKE ONE TABLET BY MOUTH TWICE A DAY TAKE ONE TABLET BY MOUTH TWICE A DAY SOLD: 05/01/2019 [facility] 20 mg 03/02/2019 12:00:00 AM EDT tablet 60 TAKE ONE TABLET BY MOUTH TWICE A DAY TAKE ONE TABLET BY MOUTH TWICE A DAY SOLD: 06/02/2019 [facility] 100 unit/mL (3 mL) 02/08/2019 12:00:00 AM EDT insulin pen 9 INJECT 36 UNITS UNDER THE SKIN ONCE DAILY INJECT 36 UNITS UNDER THE SKIN ONCE DAILY SOLD: 04/18/2019 [facility] 100 unit/mL (3 mL) 02/08/2019 12:00:00 AM EDT insulin pen 9 INJECT 36 UNITS UNDER THE SKIN ONCE DAILY INJECT 36 UNITS UNDER THE SKIN ONCE DAILY SOLD: 05/09/2019 [facility] 100 unit/mL (3 mL) 02/08/2019 12:00:00 AM EDT insulin pen 9 INJECT 36 UNITS UNDER THE SKIN ONCE DAILY INJECT 36 UNITS UNDER THE SKIN ONCE DAILY SOLD: 06/02/2019 [facility] BLOOD SUGAR DIAGNOSTIC 01/18/2019 12:00:00 AM EDT strip 100 TEST FOUR TIMES A DAY TEST FOUR TIMES A DAY SOLD: 04/24/2019 [facility] 28 gauge 01/18/2019 12:00:00 AM EDT misc 100 USE FOUR TIMES A DAY USE FOUR TIMES A DAY SOLD: 04/07/2019 [facility] 10 mg 01/17/2019 12:00:00 AM EDT tablet 30 TAKE ONE TABLET BY MOUTH EVERY DAY TAKE ONE TABLET BY MOUTH EVERY DAY SOLD: 04/18/2019 [facility] 32 gauge x 5/32" 12/26/2018 12:00:00 AM EDT needle 60 USE FOUR TIMES A DAY USE FOUR TIMES A DAY SOLD: 04/18/2019 [facility] 32 gauge x 5/32" 12/25/2018 12:00:00 AM EDT needle 60 USE FOUR TIMES A DAY USE FOUR TIMES A DAY SOLD: 12/15/2019 [facility] 32 gauge x 5/32" 12/25/2018 12:00:00 AM EDT needle 60 USE FOUR TIMES A DAY USE FOUR TIMES A DAY SOLD: 11/27/2019 [facility] Insurance Providers Payer name Policy type / Coverage type Policy ID Covered constitution party ID Covered constitution party's relationship to jaimes Policy Jaimes Plan Information BRIAN [id number] SP [id number] [place] O [id number] S [id number] SELF PAY ONLY [id number] SP [id number] [employer] O UNAVAILABLE S UN AVAILABLE ANSI-Commercial [id number] ANSI-Medicaid [id number] ANSI-Medicaid [id number] ANSI-Commercial [id number] ANSI-Commercial [id number] [facility] [id number] ANSI-Commercial [id number] ANSI-Medicaid [id number] ANSI-Commercial [id number] ANSI-Medicaid [id number] ANSI-Medicaid [id number] ANSI-Commercial [id number] ANSI-Medicaid [id number] ANSI-Commercial [id number] [place] Medicaid/CHP/FHP Commercial [id number] Self [id number] ANSI-Medicaid [id number] ANSI-Commercial [id number] [place]/CHP/FHP Commercial [id number] Self [id number] [place]/FHP Commercial [id number] Self [id number] [place]/CHP/FHP Commercial [id number] Self [id number] ANSI-Medicaid [id number] ANSI-Commercial [id number] [place] Medicaid/CHP/FHP Commercial [id number] Self [id number] ANSI-Commercial [id number] ANSI-Medicaid [id number] [place] Medicaid/CHP/FHP Commercial [id number] Self [id number] [place] Medicaid/CHP/FHP Commercial [id number] Self [id number] [place] Medicaid/CHP/FHP Commercial [id number] Self [id number] ANSI-Commercial [id number] ANSI-Medicaid [id number] [place] Medicaid/CHP/FHP Commercial [id number] Self [id number] ANSI-Medicaid [id number] ANSI-Commercial [id number] [employer] [id number] SP [id number] MEDICAID [id number] SP [id number] ANSI-Commercial [id number] ANSI-Medicaid [id number] [employer] [id number] SP [id number] ANSI-Medicaid [id number] ANSI-Commercial [id number] [employer] O [id number] S [id number] MEDICAID M [id number] S [id number] [employer] O [id number] S [id number] ANS-Medicaid [id number] ANS-Medicaid [id number] Problems, Conditions, and Diagnoses Code Display Name Description Problem Type Effective Dates Data Source(s) I20.0 7576037 Unstable angina Problem 03/17/2020 12:00:00 AM EST eCW1 ([facility]) I20.8 [id number] Stable angina Problem 03/17/2020 12:00:00 AM EST eCW1 ([facility]) [id number] Palpitations Palpitations Problem 02/24/2020 12:00:00 A M EDT [facility] ([facility]) [id number] Counseling about tobacco use Counseling about tobacco use Problem 02/24/2020 12:00:00 AM EDT [facility] ([facility]) 378002093 Tobacco user Tobacco user Problem 02/24/2020 12:00:00 A M EDT [facility] ([facility]) [id number] Preoperative cardiovascular examination Preoperative cardiovascular examination Problem 02/24/2020 12:00:00 AM EDT [facility] ([facility]) 16860637 Essential hypertension Essential hypertension Problem 02/24/2020 12:00:00 AM EDT [facility] ([facility]) [id number] Electrocardiogram abnormal Electrocardiogram abnormal Problem 02/24/2020 12:00:00 AM EDT [facility] ([facility]) 128305951 Dietary management surveillance Dietary manageme nt surveillance Problem 02/24/2020 12:00:00 AM EDT [facility] [id number] Obesity Obesity Problem 02/24/2020 12:00:00 AM ED T [facility] ([facility]) J45.20 [id number] Mild intermittent asthma without complica tion Problem 08/01/2019 12:00:00 AM EDT eCW1 ([facility]) J45.20 395037930 Mild intermittent asthma without complica tion Problem 08/01/2019 12:00:00 AM EDT eCW1 ([facility]) F32.89 73131876 Other depression Problem 06/23/2019 12:00:00 AM EST eCW1 ([facility]) F32.89 22221150 Other depression Problem 06/23/2019 12:00:00 AM EST eCW1 ([facility]) Surgeries/Procedures Procedure Description Date Indications Data Source(s) XTRNL ECG < 48 HR RECORDING 04/23/2020 12:00:00 AM EST [facility] ([facility]) XTRNL ECG CONTINUOUS RHYTHM PHYS REVIEW&INTERPJ 2019 12:00:00 AM EST [facility] ([facility]) ECHO TTHRC R-T 2D W/WOM-MODE COMPL SPEC&COLR DOP 04/16 12:00:00 AM EST [facility] ([facility]) Endoscopy Upper GI Complex Diagnostic 03/19/2020 12:00 :00 AM EST MED[facility] ([facility] ) Insertion/Replacement Peripheral Neurostimulator Pulse Gener ator 03/04/2020 12:00:00 AM EDT [facility] ([facility] [employer]) Neurostimulator Pulse Generator Brain/Spinal Cord First Hour 03/04/2020 12:00:00 AM EDT [facility] ([facility]) Insertion/Replacement Peripheral Neurostimulator Pulse Gener ator 02/26/2020 12:00:00 AM EDT [facility] ([facility] [employer] [employer]) Fluoroscopic guidance for needle placement (eg. Biopsy, aspi ratio 02/26/2020 12:00:00 AM EDT [facility] ([facility] [employer] [employer]) Neurostimulator Pulse Generator Brain/Spinal Cord First Hour 02/26/2020 12:00:00 AM EDT [facility] ([facility] [employer] [employer]) ECG ROUTINE ECG W/LEAST 12 LDS W/I&R 02/24/2020 12:00: 00 AM EDT [facility] ([facility]) Complex Cystometrogram W/Uroflo bladder void pressure,&ureth ral p 12/30/2019 12:00:00 AM EDT [facility] ([facility] [employer] [employer]) Uroflowmetry Complex 12/30/2019 12:00:00 AM EDT [facility] ([facility] [employer]) EMG Anal/Urethral Sphincter 12/30/2019 12:00:00 AM EDT [facility] ([facility] [employer] [employer]) Voiding Pressure Studies (DRYER FEEDER), Intra-Abdominal Pressure 12/30/2019 12:00:00 AM EDT [facility] ([facility] [employer] [employer]) Influenza A+B 08/01/2019 12:00:00 AM EDT eCW1 ([facility]) STREP A ASSAY W/OPTIC 08/01/2019 12:00:00 AM EDT eCW1 ([facility]) Results ID Date Data Source [id number] 05/30/2020 09:00:00 AM EST [facility] Name Value Range Interpretation Code Description Data Kathy rce(s) Supporting Document(s) SARS coronavirus 2 RNA Not Detected [facility] [place] This lab was ordered by [facility] and reported by [facility]. ID Date Data Source [id number] 04/02/2020 12:00:00 AM EST [facility] Raghu Jeffries MD Patient Name: IGLESIA MAIER [facility] Date of : 1975 89 Date of Exam: 04/02/2020[place] [address]-KQ#: Fax: [phone] EXAM: CT ABDOMEN & PELVIS WITHOUT CONTRASTCLINICAL INFORMATION: Assess for vascular implants.Low dose [address] scanning of the abdomen and pelvis wasobtained without the administration of intravenous contrast.Comparison 01/18/2020, a contrast enhanced exam.The lung bases are clear and unchanged.The solid intraabdominal organs and gallbladder are unchanged. No grossabnormality is noted. The adrenal glands and kidneys are unchanged. Nogross abnormality is noted. The bowel loops and the mesenteries areessentially unchanged. No gross abnormality is noted.There is no mass or adenopathy. There is no free fluid or free air.There is no change in the osseous structures.There is an inferior vena cava filter in place the superior tip of which isat the mid-level of the L1 vertebral body. The tip of the filter is at thelevel of the left renal vein with the extreme tip edge barely visible atthe level of the right renal vein. The tip of the IVC filter may betouching the posterior/inferior vena cava wall. There are four strutswhich appear to be breeching the inferior vena cava wall, however, only twoof the struts have a clearly defined fat plane between them and theinferior vena cava wall. The rig ht posterior strut has approximately 1 mmof fat plane it and the right posterior/inferior vena cava walland the left posterior strut is seen with a similar distance between it andthe left posterior/inferior vena cava wall. I do not see a clearlydemarcated measurable fat plane between the two anterior struts. Nofractured struts are identified. There is no evidence of stenosis of theinferior vena cava.In the posterior subcutaneous adipose at the level of the L2 vertebral bodyon the right, there is a curvilinear radiodensity which extends into theposterior pelvis between the S4 and S5 segments on the right. The etiologyof this is uncertain and needs to be correlated clinically.There are post operative changes seen in the lumbar spine with anteriorfixation and bone graft material seen at L4-5 along with bone graftmaterial seen at L5-S1. There is evidence of previous L4 and C0kbooptwsotu.IMPRESSION:1. Inferior vena cava filter as described above.2. Right posterior curvilinear subcutaneous and intrapelvic radiodensityas described above, the etiology of which is uncertain and needs to becorrelated clinically.3. Previous spinal surgery as described above.4. No evidence of acute intraabdominal or intrapelvic disease with otherfindings as described above.Accredited by the [employer] in [place].STACIE Eller/Iona argueta for referring JUVENTINO MAIER to our office. Electronically Signed - BESSIE ROSALES DO 04/02/20 16:48 Name Value Range Interpretation Code Description Data Kathy rce(s) Supporting Document(s) ID Date Data Source [id number] 03/19/2020 07:36:00 AM EST [facility] ([facility]) Name Value Range Interpretation Code Description Data Kathy rce(s) Supporting Document(s) Glucose [Mass/volume] in Capillary blood by Glucometer 118 mg/dL 70-105 Above high normal [facility] ([facility]) ID Date Data Source [id number] 03/14/2020 11:40:00 AM EST [facility] Name Value Range Interpretation Code Description Data Kathy rce(s) Supporting Document(s) SARS coronavirus 2 RNA [facility] This lab was ordered by [facility] and reported by [facility]. ID Date Data Source [id number] 02/28/2020 09:00:00 AM EDT [facility] Name Value Range Interpretation Code Description Data Kathy rce(s) Supporting Document(s) SARS coronavirus 2 RNA [facility] This lab was ordered by [facility] and reported by [facility]. ID Date Data Source [id number] 02/21/2020 10:00:00 AM EDT [facility] Name Value Range Interpretation Code Description Data Kathy rce(s) Supporting Document(s) SARS coronavirus 2 RNA [facility] This lab was ordered by [facility] and reported by [facility]. ID Date Data Source [id number] 12/03/2019 12:00:00 PM EDT [facility] ([facility]) Name Value Range Interpretation Code Description Data Kathy rce(s) Supporting Document(s) TP Reflex HPV ASCUS Laboratory test result [facility] ([facility] [employer] [employer]) SPECIMEN PART------ A. Vaginal, ThinPrep Pap (Patient Account Representative) CYTOLOGY HX-------- Date of Last Menstrual Period: HYSTERECTOMY Other Information: Hysterectomy FINAL DIAGNOSIS---- INTERPRETATION: Negative for Intraepithelial Lesion or Malignancy. SPECIMEN ADEQUACY:Satisfactory for evaluation. TP Reflex HPV ASCUS Laboratory test result [facility] ([facility] [employer] [employer]) ID Date Data Source [id number] 12/03/2019 10:09:00 AM EDT [facility] ([facility] [employer] [employer]) Name Value Range Interpretation Code Description Data Kathy rce(s) Supporting Document(s) Bacteria identified in Urine by Culture Laboratory test result [facility] ([facility] [employer]) ID Date Data Source [id number] 12/03/2019 10:09:00 AM EDT [facility] ([facility] [employer] [employer]) Name Value Range Interpretation Code Description Data Kathy rce(s) Supporting Document(s) Appearance, Urine Laboratory test result [facility] ([facility] [employer]) Color, Urine Laboratory test result MEDE NT ([facility] [employer]) PH,Urine 6.0 units 5.0-9.0 [facility] ([facility] O B/[employer]) Specific [place] Urine Auto 1.014 1.002-1.035 [facility] ([facility] [employer]) Protein, Urine Auto Laboratory test result [facility] ([facility] [employer]) Glucose, Urine (Ua) Auto Laboratory test result Above high normal [facility] ([facility] [employer]) Ketone, Urine Auto Laboratory test result [facility] ([facility] [employer]) Bilirubin, Urine Auto Laboratory test result [facility] ([facility] [employer]) Nitrite, Urine Auto Laboratory test result [facility] ([facility] [employer]) Urobilinogen, Urine Auto 0.2 mg/dL 0.0-2.0 MED[facility] T ([facility] [employer]) Blood, Urine Blood Laboratory test result [facility] ([facility] [employer]) WBC, Urine Auto 0 /HPF 0-3 [facility] ([facility] [employer]) RBC, Urine Auto 0 /HPF 0-3 [facility] Leukocyte Esterase, Urine Auto Laboratory test result [facility] ([facility] [employer]) Bacteria, Urine Auto Laboratory test result [facility] ([facility] [employer]) Hyaline Cast, Urine Auto 0 /LPF 0-1 MED[facility] T ([facility] [employer]) Squamous Epithelial Cell Ur AU 0 /HPF 0-6 [facility] ([facility] [employer]) ID Date Data Source [id number] 12/03/2019 10:09:00 AM EDT [facility] ([facility] [employer]) Name Value Range Interpretation Code Description Data Kathy rce(s) Supporting Document(s) <External Comment [facility]CWMed> Laboratory test result [facility] ([facility] [employer]) FULL REPORT IN LAB NOTES (eCW and [facility] ). Urine Culture Result Laboratory test result [facility] ([facility] [employer]) ID Date Data Source [id number] 06/25/2019 12:00:00 AM EST eCW1 ([facility]) Name Value Range Interpretation Code Description Data Kathy rce(s) Supporting Document(s) Hemoglobin A1c/Hemoglobin.total in Blood 11.8 HEMOGLOBIN A1c eCW1 ([facility]) Procedure Social History Code Duration Value Status Description Data Source(s ) Smoking 04/22/2020 12:00:00 AM EST Current Smoker completed Curre nt Smoker eCW1 ([facility]) Smoking 04/22/2020 12:00:00 AM EST Current Smoker completed Curre nt Smoker eCW1 ([facility]) Smoking 03/17/2020 12:00:00 AM EST Current Smoker completed Curre nt Smoker eCW1 ([facility]) Smoking 11/04/2019 12:00:00 AM EDT Current Smoker completed Curre nt Smoker eCW1 ([facility]) Smoking 11/04/2019 12:00:00 AM EDT Current Smoker completed Curre nt Smoker eCW1 ([facility]) Smoking 11/04/2019 12:00:00 AM EDT Current Smoker completed Curre nt Smoker eCW1 ([facility]) Smoking 11/04/2019 12:00:00 AM EDT Current Smoker completed Curre nt Smoker eCW1 ([facility]) Smoking 11/04/2019 12:00:00 AM EDT Current Smoker completed Curre nt Smoker eCW1 ([facility]) Smoking 10/24/2019 12:00:00 AM EDT Current Smoker completed Curre nt Smoker eCW1 ([facility]) Smoking 10/15/2019 12:00:00 AM EDT Current Smoker completed Curre nt Smoker eCW1 ([facility]) Smoking 10/15/2019 12:00:00 AM EDT Current Smoker completed Curre nt Smoker eCW1 ([facility]) Vital Signs ID Date Data Source UNK Name Value Range Interpretation Code Description Data Source(s) Body surface area Derived from formula 1.85 m2 1.[address] [facility] ([facility]) Body weight 82.102 kg 82.[address] [facility] ([facility]) [place] body weight 115 [lb_av] 115 [lb_av] MEDEN T ([facility]) Body mass index (BMI) [Ratio] 32.1 kg/m2 32.1 k g/m2 [facility] ([facility]) Body weight 181.00 [lb_av] 181.00 [lb_av] MEDEN T ([facility]) Body height 63 [in_i] 63 [facility]in_i] [facility] 5'3" Body temperature 97.8 [degF] 97.8 [degF] [facility] ([facility]) Body surface area Derived from formula 1.85 m2 1.[address] [facility] ([facility]) Body weight 81.648 kg 81.[address] [facility] ([facility]) [place] body weight 115 [lb_av] 115 [lb_av] MEDEN T ([facility]) Body mass index (BMI) [Ratio] 31.9 kg/m2 31.9 k g/m2 [facility] ([facility]) Body weight 180.00 [lb_av] 180.00 [lb_av] MEDEN T ([facility]) Body height 63 [in_i] 63 [in_i] [facility] 5'3" Diastolic blood pressure 78 mm[Hg] 78 mm[Hg] [facility] ([facility]) Systolic blood pressure 118 mm[Hg] 118 mm[Hg] M EDENT ([facility]) Body surface area Derived from formula 1.85 m2 1.[address] [facility] ([facility]) Body weight 81.648 kg 81.[address] [facility] ([facility]) [place] body weight 115 [lb_av] 115 [lb_av] MED[facility] T ([facility]) Body mass index (BMI) [Ratio] 31.9 kg/m2 31.9 k g/m2 [facility] ([facility]) Body weight 180.00 [lb_av] 180.00 [lb_av] MEDEN T ([facility]) Body height 63 [in_i] 63 [in_i] [facility] 5'3" Body temperature 97.5 [degF] 97.5 [degF] [facility] ([facility]) Diastolic blood pressure 68 mm[Hg] 68 mm[facility]Hg[facility] Systolic blood pressure 122 mm[Hg] 122 mm[Hg] [facility] ([facility] [employer]) Diastolic blood pressure--sitting 77 mm[Hg] 77 mm[Hg] [facility] ([facility]) [employer], adult cuff/Ra Systolic blood pressure--sitting 115 mm[Hg] 115 mm[Hg] [facility] ([facility]) [employer], adult cuff/Ra Heart rate 58 /min 58 /min [facility] Body mass index (BMI) [Ratio] 31.4 kg/m2 31.4 k g/m[facility] Body height 63 [in_i] 63 [in_i] [facility]) 5'3" Body weight 177.00 [lb_av] 177.00 [lb_av] MEDEN T ([facility]) Body weight 78.473 kg 78.[address] [facility] ([facility]) Body mass index (BMI) [Ratio] 30.6 kg/m2 30.6 k g/m2 [facility] ([facility]) Body weight 173.00 [lb_av] 173.00 [lb_av] MEDEN T ([facility], ) Body height 63 [in_i] 63 [in_i] [facility] ([facility], ) 5'3" Diastolic blood pressure 64 mm[Hg] 64 mm[Hg] [facility] ([facility]) Systolic blood pressure 104 mm[Hg] 104 mm[Hg] M EDENT ([facility]) Body surface area 1.79 m2 1.79 m2 [facility] ([facility] [employer]) Body surface area Derived from formula 1.79 m2 1.79 m2 MEDENT ([employer]) Body mass index (BMI) [Ratio] 31.0 kg/m2 31.0 k g/m2 MEDENT ([employer]) Body weight 171.00 [lb_av] 171.00 [lb_av] MEDEN T ([employer]) Body height 62.25 [in_i] 62.25 [in_i] MEDENT ([employer]) 5'2.25" Diastolic blood pressure 68 mm[Hg] 68 mm[Hg] MEDENT ([employer]) Systolic blood pressure 126 mm[Hg] 126 mm[Hg] M EDENT ([employer]) Diastolic blood pressure 64 mm[Hg] 64 mm[Hg] eCW1 ([facility]) Systolic blood pressure 118 mm[Hg] 118 mm[Hg] e CW1 ([facility]) Body temperature 97.1 [degF] 97.1 [degF] eCW1 ( [facility]) Respiratory rate 18 /min 18 /min eCW1 ([facility] hospital) Heart rate 104 /min 104 /min eCW1 ([facility]) Body mass index (BMI) [Ratio] 28.55 kg/m2 28.55 kg/m2 eCW1 ([facility]) Body height 63 [in_i] 63 [in_i] eCW1 ([facility]) Body weight 161.2 [lb_av] 161.2 [lb_av] eCW1 ([facility]) Diastolic blood pressure 68 mm[Hg] 68 mm[Hg] eCW1 ([facility]) Systolic blood pressure 124 mm[Hg] 124 mm[Hg] e CW1 ([facility]) Body temperature 97 [degF] 97 [degF] eCW1 (Critical access hospital) Respiratory rate 18 /min 18 /min eCW1 (Critical access hospital) Heart rate 90 /min 90 /min eCW1 ([facility]) Body mass index (BMI) [Ratio] 28.20 kg/m2 28.20 kg/m2 eCW1 ([facility]) Body height 63 [in_i] 63 [in_i] eCW1 ([facility]) Body weight 159.2 [lb_av] 159.2 [lb_av] eCW1 ([facility]) Diastolic blood pressure 74 mm[Hg] 74 mm[Hg] eCW1 ([facility]) Systolic blood pressure 118 mm[Hg] 118 mm[Hg] e CW1 ([facility]) Body temperature 97.4 [degF] 97.4 [degF] eCW1 ( [facility]) Respiratory rate 20 /min 20 /min eCW1 (Critical access hospital) Heart rate 88 /min 88 /min eCW1 ([facility]) Body mass index (BMI) [Ratio] 28.76 kg/m2 28.76 kg/m2 W1 ([facility]) Body height 63 [in_us] 63 [in_us] eCW1 ([facility]) Body weight Measured 162.4 [lb_av] 162.4 [lb_av ] eCW1 ([facility]) Diastolic blood pressure 68 mm[Hg] 68 mm[Hg] eCW1 ([facility]) Systolic blood pressure 118 mm[Hg] 118 mm[Hg] e CW1 ([facility]) Body temperature 97.8 [degF] 97.8 [degF] eCW1 ( [facility]) Respiratory rate 20 /min 20 /min eCW1 (Critical access hospital) Heart rate 96 /min 96 /min eCW1 ([facility]) Body mass index (BMI) [Ratio] 28.98 kg/m2 28.98 kg/m2 eCW1 ([facility]) Body height 63 [in_us] 63 [in_us] eCW1 ([facility]) Body weight Measured 163.6 [lb_av] 163.6 [lb_av ] eCW1 ([facility]) Diastolic blood pressure 62 mm[Hg] 62 mm[Hg] eCW1 ([facility]) Systolic blood pressure 116 mm[Hg] 116 mm[Hg] e CW1 ([facility]) Body temperature 98.7 [degF] 98.7 [degF] eCW1 ( [facility]) Respiratory rate 20 /min 20 /min eCW1 (Critical access hospital) Heart rate 94 /min 94 /min eCW1 ([facility]) Body mass index (BMI) [Ratio] 28.20 kg/m2 28.20 kg/m2 eCW1 ([facility]) Body height 63 [in_us] 63 [in_us] eCW1 ([facility]) Body weight Measured 159.2 [lb_av] 159.2 [lb_av ] eCW1 ([facility]) Body weight 67.586 kg 67.[address] [facility] ([facility], ) Body mass index (BMI) [Ratio] 26.4 kg/m2 26.4 k g/m2 MEDENT ([facility], ) Body weight 149.00 [lb_av] 149.00 [lb_av] MEDEN T ([facility], ) Body height 63 [in_i] 63 [in_i] [facility] ([facility], ) 5'3" Diastolic blood pressure 78 mm[Hg] 78 mm[Hg] eCW1 ([facility]) Systolic blood pressure 116 mm[Hg] 116 mm[Hg] e CW1 ([facility]) Body temperature 97.5 [degF] 97.5 [degF] eCW1 ( [facility]) Respiratory rate 20 /min 20 /min eCW1 (Critical access hospital) Heart rate 98 /min 98 /min eCW1 ([facility]) Body mass index (BMI) [Ratio] 29.51 kg/m2 29.51 kg/m2 eCW1 ([facility]) Body height 63 [in_us] 63 [in_us] eCW1 ([facility]) Body weight Measured 166.6 [lb_av] 166.6 [lb_av ] eCW1 ([facility]) Patient Treatment Plan of Care Planned Activity Planned Date Details Description Data Source (s) Semglee 100 UNIT/ML 04/27/2020 12:00:00 AM EST eCW1 ([facility]) Semglee 100 UNIT/ML 04/27/2020 12:00:00 AM EST eCW1 ([facility]) 24 HR mirabegron 25 MG Extended Release Oral Tablet [M yrbetriq] 09/29/2019 12:00:00 AM EDT eCW1 ([facility]) Omeprazole Magnesium 20 MG 09/05/2019 12:00:00 AM EDT eCW1 ([facility]) 120 ACTUAT Budesonide 0.08 MG/ACTUAT / f ormoterol fumarate 0.0045 MG/ACTUAT Metered Dose Inhaler [Symbicort] 08/02/2019 12:00:00 AM EDT eCW1 ([facility]) cetirizine hydrochloride 5 MG Oral Tablet 08/02/2019 12:00:00 AM ED T eCW1 ([facility]) Albuterol Sulfate HFA 108 (90 Base) MCG/ACT 08/01/2019 12:00:00 AM EDT eCW1 ([facility])
[2020-06-04] MEDS ORDERED: fentaNYL 100 MCG/2 ML INJECTION (J3010) As Ordered ONE (10:25)
[2020-06-04] MEDS ORDERED: PHENYLephrine 500MCG 5ML (100MCG/ML) SYRINGE As Ordered ONE (11:15)
[2020-06-04] MEDS ORDERED: ePHEDrine SULFATE 25 MG/5 ML(5MG/ML) SYRINGE As Ordered ONE (11:29)
[2020-06-04 11:36] VITALS: BP 105/60
--- NOTE | 2020-06-04 11:39 | ROOR ---
Patient Name: Juventino Maier Procedure Date: 06/04/2020 10:55 AM Date of : 1975 Age: 45 Room: [facility] Gender: Female Note Status: Finalized Procedure: Upper GI endoscopy Indications: Iron deficiency anemia, Dyspepsia, Heartburn Providers: Jesus Johnson MD Referring MD: Francisco Recio Do Requesting Provider: Medicines: Monitored Anesthesia Care Complications: No immediate complications. Procedure: Pre-Anesthesia Assessment: - Prior to the procedure, a History and Physical was performed, and patient medications and allergies were reviewed. The patient is competent. The risks and benefits of the procedure and the sedation options and risks were discussed with the patient. All questions were answered and informed consent was obtained. Patient identification and proposed procedure were verified by the physician, the nurse and the anesthesiologist in the procedure room. Mental Status Examination: alert and oriented. Airway Examination: normal oropharyngeal airway and neck mobility. Respiratory Examination: clear to auscultation. CV Examination: normal. Prophylactic Antibiotics: The patient does not require prophylactic antibiotics. Prior Anticoagulants: The patient has taken no previous anticoagulant or antiplatelet agents. ASA Grade Assessment: III - A patient with severe systemic disease. After reviewing the risks and benefits, the patient was deemed in satisfactory condition to undergo the procedure. The anesthesia plan was to use monitored anesthesia care (MAC). Immediately prior to administration of medications, the patient was re-assessed for adequacy to receive sedatives. The heart rate, respiratory rate, oxygen saturations, blood pressure, adequacy of pulmonary ventilation, and response to care were monitored throughout the procedure. The physical status of the patient was re-assessed after the procedure. The Endoscope was introduced through the mouth, and advanced to the second part of duodenum. The upper GI endoscopy was accomplished without difficulty. The patient tolerated the procedure well. Findings: LA Grade A (one or more mucosal breaks less than 5 mm, not extending between tops of 2 mucosal folds) esophagitis with no bleeding was found 35 cm from the incisors. Biopsies were taken with a cold forceps for histology. Verification of patient identification for the specimen was done by the physician and nurse using the patient's name, date and medical record number. Estimated blood loss was minimal. Scattered mild inflammation characterized by erythema and granularity was found in the gastric body and in the gastric antrum. Biopsies were taken with a cold forceps for Helicobacter pylori testing. Verification of patient identification for the specimen was done by the physician and nurse using the patient's name, date and medical record number. Estimated blood loss was minimal. Diffuse mucosal flattening was found in the duodenal bulb and in the second portion of the duodenum. Biopsies for histology were taken with a cold forceps for evaluation of celiac disease. Impression: - LA Grade A reflux esophagitis. Rule out Cunningham's esophagus. Biopsied. - Gastritis. Biopsied. - Flattened mucosa was found in the duodenum, suspicious for celiac disease. Biopsied. Recommendation: - Patient has a contact number available for emergencies. The signs and symptoms of potential delayed complications were discussed with the patient. Return to normal activities tomorrow. Written discharge instructions were provided to the patient. - Anti-acid reflux diet -- small meals, sit upright atleast 1 hour after meals, avoid fatty/ oily foods and avoid foods that cause reflux. - High fiber diet. - Continue present medications. - Await pathology results. - Follow an antireflux regimen. - Telephone GI clinic for pathology results in 2 weeks. - Return to primary care physician. Procedure Code(s): --- Professional --- 72949, Esophagogastroduodenoscopy, flexible, transoral; with biopsy, single or multiple Diagnosis Code(s): --- Professional --- K21.0, Gastro-esophageal reflux disease with esophagitis K29.70, Gastritis, unspecified, without bleeding K31.89, Other diseases of stomach and duodenum D50.9, Iron deficiency anemia, unspecified R10.13, Epigastric pain R12, Heartburn CPT copyright 2019 [employer]. All rights reserved. The codes documented in this report are preliminary and upon well logging mud analysis captain review may be revised to meet current compliance requirements. Jesus Johnson MD Jesus Johnson MD 06/04/2020 11:38:54 AM Electronically signed by Jesus Johnson MD Number of Addenda: 0 Note Initiated On: 06/04/2020 10:55 AM Estimated Blood Loss: Estimated blood loss was minimal.
--- NOTE | 2020-06-04 11:54 | ROOR ---
Patient Name: Juventino Maier Procedure Date: 06/04/2020 10:56 AM Date of : 1975 Age: 45 Room: [facility] Gender: Female Note Status: Finalized Procedure: Colonoscopy Indications: Iron deficiency anemia Providers: Jesus Johnson MD Referring MD: Francisco Recio Do Requesting Provider: Medicines: Monitored Anesthesia Care Complications: No immediate complications. Procedure: Pre-Anesthesia Assessment: - Prior to the procedure, a History and Physical was performed, and patient medications and allergies were reviewed. The patient is competent. The risks and benefits of the procedure and the sedation options and risks were discussed with the patient. All questions were answered and informed consent was obtained. Patient identification and proposed procedure were verified by the physician, the nurse and the anesthesiologist in the procedure room. Mental Status Examination: alert and oriented. Airway Examination: normal oropharyngeal airway and neck mobility. Respiratory Examination: clear to auscultation. CV Examination: normal. Prophylactic Antibiotics: The patient does not require prophylactic antibiotics. Prior Anticoagulants: The patient has taken no previous anticoagulant or antiplatelet agents. ASA Grade Assessment: II - A patient with mild systemic disease. After reviewing the risks and benefits, the patient was deemed in satisfactory condition to undergo the procedure. The anesthesia plan was to use monitored anesthesia care (MAC). Immediately prior to administration of medications, the patient was re-assessed for adequacy to receive sedatives. The heart rate, respiratory rate, oxygen saturations, blood pressure, adequacy of pulmonary ventilation, and response to care were monitored throughout the procedure. The physical status of the patient was re-assessed after the procedure. The Colonoscope was introduced through the anus and advanced to the cecum, identified by appendiceal orifice and ileocecal valve. The colonoscopy was performed without difficulty. The patient tolerated the procedure well. The quality of the bowel preparation was fair and fair except the ascending colon was poor. The ileocecal valve, appendiceal orifice, and rectum were photographed. Scope insertion time was 2 minutes. Scope withdrawal time was 10 minutes. The total duration of the procedure was 12 minutes. Findings: The perianal and digital rectal examinations were normal. A large amount of semi-liquid semi-solid stool was found from sigmoid to ascending colon, interfering with visualization. Lavage of the area was performed using a large amount of sterile water, resulting in incomplete clearance with fair visualization. Non-bleeding external and internal hemorrhoids were found during retroflexion. The hemorrhoids were medium-sized. The exam was otherwise normal throughout the examined colon. There is no endoscopic evidence of bleeding, mass or stricture in the entire colon. Impression: - Preparation of the colon was fair. - Stool from sigmoid to ascending colon. - Non-bleeding external and internal hemorrhoids. - No specimens collected. Recommendation: - Patient has a contact number available for emergencies. The signs and symptoms of potential delayed complications were discussed with the patient. Return to normal activities tomorrow. Written discharge instructions were provided to the patient. - High fiber diet and Anti-acid reflux diet -- small meals, sit upright atleast 1 hour after meals, avoid fatty/ oily foods and avoid foods that cause reflux. - Continue present medications. - Repeat colonoscopy in 5 years for screening purposes. - Return to primary care physician. - Follow the recommendations as per the other procedure note. Procedure Code(s): --- Professional --- 58986, Colonoscopy, flexible; diagnostic, including collection of specimen(s) by brushing or washing, when performed (separate procedure) Diagnosis Code(s): --- Professional --- K64.8, Other hemorrhoids D50.9, Iron deficiency anemia, unspecified CPT copyright 2019 [employer]. All rights reserved. The codes documented in this report are preliminary and upon professional fee coder review may be revised to meet current compliance requirements. Jesus Johnson MD Jesus Johnson MD 06/04/2020 11:53:31 AM Electronically signed by Jesus Johnson MD Number of Addenda: 0 Note Initiated On: 06/04/2020 10:56 AM Estimated Blood Loss: Estimated blood loss was minimal.
== END 2020-06-04 11:54 | disposition home or self-care (01) ==
LOC: M OPP 09:49
PROVIDERS: ATTEND Internal Medicine Gastroenterology
DX: D50.9 Iron deficiency anemia, unspecified (principal); R12 Heartburn; K64.8 Other hemorrhoids; R10.13 Epigastric pain; K29.70 Gastritis, unspecified, without bleeding; K31.89 Other diseases of stomach and duodenum; K21.00 Gastro-esophageal reflux disease with esophagitis, without bleeding
CPT/HCPCS: 43239; 45378; 88305; 88342; J2370; J3010

== ENCOUNTER 2020-06-06 17:30 | Emergency (ER) | payer OTHER ==
[~2020-06-06] VITALS: Ht 160 cm; Wt 81.8 kg
[~2020-06-06 17:30] MED LIST changes: -LIDOCAINE 2% 100MG/5ML SDV (FOR ANES.) As Ordered ONE; -NS 1,000 ML IV ONE; -propofoL 200 MG/20 ML VIAL As Ordered ONE
[2020-06-06 17:31] VITALS: BP 132/76
[2020-06-06] MEDS ORDERED: DOXY100C37 PO (17:59)
[2020-06-06] MEDS ORDERED: DOXYCYCLINE HYCLATE 100MG TABLET PO ONE (18:00)
== END 2020-06-06 18:11 | disposition home or self-care (01) ==
LOC: M ED 17:30
DX: L03.032 Cellulitis of left toe (principal); L85.3 Xerosis cutis; J45.909 Unspecified asthma, uncomplicated; I10 Essential (primary) hypertension; E11.9 Type 2 diabetes mellitus without complications; E03.9 Hypothyroidism, unspecified; E78.00 Pure hypercholesterolemia, unspecified; F41.9 Anxiety disorder, unspecified; F17.200 Nicotine dependence, unspecified, uncomplicated; Z79.4 Long term (current) use of insulin; Z79.899 Other long term (current) drug therapy; Z79.890 Hormone replacement therapy; Z88.0 Allergy status to penicillin; Z88.2 Allergy status to sulfonamides; Z88.5 Allergy status to narcotic agent; Z91.040 Latex allergy status

== ENCOUNTER → 2020-06-07 | Outpatient (CLI) | payer OTHER ==
[~2020-06-07] MED LIST changes: +DOXY100C37 PO
--- NOTE | 2020-06-08 05:41 | REPPI ---
INDICATION: LEFT FOOT PAIN COMPARISON: None. TECHNIQUE: AP, lateral, bilateral oblique views left foot. FINDINGS: Generalized age-related changes are appreciated. The osseous structures and joint spaces are intact and normal. There is no evidence for acute fracture or dislocation. Surrounding soft tissues are unremarkable. No subcutaneous emphysema or radiodense foreign body. IMPRESSION: Generalized age-related changes. <Electronically signed by Enrique Krishnamurthy > 06/08/20 0537
== END ==
LOC: M PLAIMG 14:18
PROVIDERS: ATTEND Physician Assistant
DX: M79.672 Pain in left foot (principal)

== ENCOUNTER → 2020-06-10 | Outpatient (REF) | payer OTHER ==
[~2020-06-10] MED LIST changes: +LISI-538 PO; -LISI20TA33 PO
[2020-06-10 18:10] LABS: BASO % 0.4 % (0.0-1.0); EOS # 0.1 10^3/uL (0.0-0.5); EOS % 0.9 % (0.0-3.0); HEMATOCRIT 34.4 % (36.0-47.0); HEMOGLOBIN 10.4 g/dl (12.0-15.5); LYMPH # 1.7 10^3/uL (1.5-5.0); LYMPH % 24.1 % (24.0-44.0); MEAN CORPUSCULAR HEMOGLOBIN 24.6 pg (27.0-33.0); MEAN CORPUSCULAR HGB CONC 30.2 g/dl (32.0-36.5); MEAN CORPUSCULAR VOLUME 81.5 fl (80.0-96.0); MONO # 0.5 10^3/uL (0.0-0.8); MONO % 6.6 % (0.0-5.0); NEUTROPHILS # 4.7 10^3/uL (1.5-8.5); NEUTROPHILS % 67.6 % (36.0-66.0); PLATELET COUNT, AUTOMATED 168 10^3/uL (150-450); RED BLOOD COUNT 4.22 10^6/uL (4.00-5.40); WHITE BLOOD COUNT 6.9 10^3/uL (4.0-10.0)
[2020-06-10 18:43] LABS: ALBUMIN 3.7 GM/DL (3.2-5.2); ALT/SGPT 26 U/L (12-78); BILIRUBIN,TOTAL 0.2 MG/DL (0.2-1.0); BLOOD UREA NITROGEN 16 MG/DL (7-18); CALCIUM LEVEL 9.4 MG/DL (8.5-10.1); CARBON DIOXIDE LEVEL 28 MEQ/L (21-32); CHLORIDE LEVEL 103 MEQ/L (98-107); CREATININE FOR GFR 0.79 MG/DL (0.55-1.30); GLOMERULAR FILTRATION RATE > 60.0 (>58); GLUCOSE, FASTING 244 MG/DL (70-100); POTASSIUM SERUM 4.4 MEQ/L (3.5-5.1); SODIUM LEVEL 137 MEQ/L (136-145); URIC ACID 4.3 MG/DL (2.6-6.0)
[2020-06-10 20:38] LABS: HEMOGLOBIN A1c 9.4 %
== END ==
LOC: M SFHCPLAZ 15:49
PROVIDERS: ATTEND Physician Assistant
DX: M10.9 Gout, unspecified (principal)

== ENCOUNTER → 2020-06-18 | Outpatient (REF) | payer OTHER ==
[~2020-06-18] MED LIST changes: -LISI-538 PO; +LISI20TA33 PO
[2020-06-18 13:32] LABS: BASO % 0.5 % (0.0-1.0); EOS # 0.1 10^3/uL (0.0-0.5); EOS % 0.9 % (0.0-3.0); HEMATOCRIT 37.9 % (36.0-47.0); HEMOGLOBIN 11.1 g/dl (12.0-15.5); LYMPH # 2.5 10^3/uL (1.5-5.0); LYMPH % 33.6 % (24.0-44.0); MEAN CORPUSCULAR HGB CONC 29.3 g/dl (32.0-36.5); MONO # 0.7 10^3/uL (0.0-0.8); MONO % 8.8 % (0.0-5.0); NEUTROPHILS # 4.2 10^3/uL (1.5-8.5); NEUTROPHILS % 55.9 % (36.0-66.0); PLATELET COUNT, AUTOMATED 200 10^3/uL (150-450); RED BLOOD COUNT 4.62 10^6/uL (4.00-5.40); WHITE BLOOD COUNT 7.5 10^3/uL (4.0-10.0)
[2020-06-18 14:09] LABS: CREATININE, URINE 17.4 MG/DL; MALB URINE SIEMENS 17.3 MG/L; MAU/CREAT RATIO 99.4 MCG/MG (0.0-30.0)
== END ==
LOC: M SFHCPLAZ 12:00
PROVIDERS: ATTEND Family Medicine
DX: D64.9 Anemia, unspecified (principal); E10.8 Type 1 diabetes mellitus with unspecified complications

== ENCOUNTER 2020-07-01 10:05 | Outpatient (RCR) | payer OTHER | END 2020-07-11 | LOC: M PT 10:05 | PROVIDERS: ATTEND Physician Assistant | DX: S76.011A Strain of muscle, fascia and tendon of right hip, initial encounter (principal); X58.XXXA Exposure to other specified factors, initial encounter; Y92.9 Unspecified place or not applicable; Y99.9 Unspecified external cause status ==

== ENCOUNTER → 2020-07-16 | Outpatient (CLI) | payer OTHER ==
--- NOTE | 2020-07-16 11:30 | REP ---
INDICATION: LUQ ABD PAIN W/ RETAINED FOOD ABN DIGESTIVE EGD. COMPARISON: None. TECHNIQUE/RADIOTRACER AND DOSE: Following the intravenous administration of 1.04 mCi technetium 99 M sulfur colloid in 2 scrambled eggs and 6 oz of water, multiple images of the upper abdomen are performed in the anterior and posterior projections for 90 minutes. FINDINGS: The gastric activity is measured. At the end of 90 minutes 54% of the ingested activity has emptied from the stomach. The T1/2 is 85 minutes which is normal. IMPRESSION: Normal gastric emptying time. <Electronically signed by Oliver Wood > 07/16/20 1126
== END ==
LOC: M RAD 08:38
PROVIDERS: ATTEND Physician Assistant Medical
DX: R10.12 Left upper quadrant pain (principal)
CPT/HCPCS: 78264; A9541

== ENCOUNTER 2020-07-21 10:00 | Outpatient (RCR) | payer OTHER ==
[2020-08-05] MEDS ORDERED: COLC0.6T47 PO (10:50)
== END 2020-08-11 ==
LOC: M PT 10:00
PROVIDERS: ATTEND Physician Assistant
DX: S76.011A Strain of muscle, fascia and tendon of right hip, initial encounter (principal); X58.XXXA Exposure to other specified factors, initial encounter; Y92.9 Unspecified place or not applicable; Y99.9 Unspecified external cause status

== ENCOUNTER → 2020-07-23 | Outpatient (REF) | payer OTHER ==
[2020-07-23 13:37] LABS: HEMOGLOBIN A1c 8.9 %
== END ==
LOC: M SFHCPLAZ 09:01
PROVIDERS: ATTEND Family Medicine
DX: E10.8 Type 1 diabetes mellitus with unspecified complications (principal)

== ENCOUNTER → 2020-08-07 | Outpatient (CLI) | payer OTHER ==
[~2020-08-07] MED LIST changes: +COLC0.6T47 PO
== END ==
LOC: M LABSMTC 09:41
PROVIDERS: ATTEND Anesthesiology
DX: Z01.812 Encounter for preprocedural laboratory examination (principal); Z20.822 Contact with and (suspected) exposure to COVID-19

== ENCOUNTER 2020-08-12 06:31 | Day surgery (SDC) | payer OTHER ==
[~2020-08-12] VITALS: Ht 160 cm; Wt 80.7 kg
[~2020-08-12 06:31] MED LIST changes: +LR 1,000 ML IV ONE
[2020-08-12] MEDS ORDERED: MIDAZOLAM INJ 2MG/2ML VIAL (J2250 PER 1MG) As Ordered ONE (06:51)
[2020-08-12] MEDS ORDERED: propofoL 200 MG/20 ML VIAL As Ordered ONE (06:52)
[2020-08-12] MEDS ORDERED: LIDOCAINE 2% 100MG/5ML SDV (FOR ANES.) As Ordered ONE (06:52)
[2020-08-12] MEDS ORDERED: fentaNYL 100 MCG/2 ML INJECTION (J3010) As Ordered ONE (06:52)
[2020-08-12] MEDS ORDERED: LIDOCAINE 1% MDV 20ML VIAL As Ordered ONE (07:10)
[2020-08-12] MEDS ORDERED: ePHEDrine SULFATE 25 MG/5 ML(5MG/ML) SYRINGE As Ordered ONE (07:36)
[2020-08-12] MEDS ORDERED: PHENYLephrine 500MCG 5ML (100MCG/ML) SYRINGE As Ordered ONE ×2 (07:36→08:03)
[2020-08-12] MEDS ORDERED: ONDANSETRON 4MG/2ML VIAL IV PRN (08:50)
[2020-08-12] MEDS ORDERED: fentaNYL 100 MCG/2 ML INJECTION (J3010) IV PRN (08:50)
[2020-08-12] MEDS ORDERED: LR 1,000 ML IV SCH ×2 (08:50→09:00)
[2020-08-12] MEDS ORDERED: HYDROMORPHONE HCL 0.5 MG/ 0.5 ML SYRINGE (J1170 PER 1) IV PRN (08:50)
[2020-08-12] MEDS ORDERED: IBUPROFEN 400MG TAB PO PRN (09:00)
[2020-08-12 09:20] VITALS: BP 113/72
--- NOTE | 2020-08-12 12:33 | RO ---
OPERATIVE NOTE DATE OF OPERATION: 08/12/2020 PREOPERATIVE DIAGNOSIS/INDICATION FOR SURGERY: Painful InterStim lead. We had difficulty getting clearance for the permanent generator, so she never ended up having one and over time the lead became painful for her. POSTOPERATIVE DIAGNOSIS: Painful InterStim lead. We had difficulty getting clearance for the permanent generator, so she never ended up having one and over time lead became painful for her. PROCEDURE: Removal of InterStim lead. SURGEON: Kim Madera MD MANAGER CARD: None. ANESTHESIA: Sedation and local. SPECIMENS: We sent the lead for identification purposes. BRIEF DESCRIPTION OF PROCEDURE AND FINDINGS: Juventino was brought to the operating room where sufficient sedation was given. She was prepped and draped and positioned prone as typical for these cases and then 1% lidocaine with that was used to numb the area to the right lateral aspect of the sacrum where the lead had gone in. We also had the site of the pocket, I initially thought maybe I could feel it near its insertion point; but with dissection there, we were not able to find the lead, so we went ahead and opened the area towards the pocket and then wiggled the lead from there so that we could find it; it's a more typical location and then we did cut off the thicker end part so that we could drag the lead back towards the midline and then wrap it around the hemostat, as is typical and very slowly and carefully removed it and it was removed intact. The little tines were present and of course we did cut the extension off and that was purposeful and both pieces will be sent for identification (ID); and with the lead out and the pocket dry, I did deep layer closure with 2-0 Vicryl and a skin closure with 3-0 Vicryl and a subcuticular stitch and dry sterile dressings were then applied and the procedure was ended. Estimated blood loss for the procedure about 1 ml. Fluid replacement was crystalloid. Complications: None. Condition and disposition: Juventino tolerated the procedure well and was recovering in the recovery room in good condition.
== END 2020-08-12 09:40 | disposition home or self-care (01) ==
LOC: M SDC 06:31
PROVIDERS: ATTEND Obstetrics & Gynecology
DX: T85.191A Other mechanical complication of implanted electronic neurostimulator of peripheral nerve electrode (lead), initial encounter (principal); I10 Essential (primary) hypertension; J45.909 Unspecified asthma, uncomplicated; Z86.718 Personal history of other venous thrombosis and embolism; K21.9 Gastro-esophageal reflux disease without esophagitis; M10.9 Gout, unspecified; F17.218 Nicotine dependence, cigarettes, with other nicotine-induced disorders; E10.9 Type 1 diabetes mellitus without complications; Z79.4 Long term (current) use of insulin; Z79.899 Other long term (current) drug therapy; Z79.51 Long term (current) use of inhaled steroids
CPT/HCPCS: 64585; 88300; J2250; J2370; J3010

== ENCOUNTER → 2020-08-14 | Outpatient (CLI) | payer OTHER ==
[~2020-08-14] MED LIST changes: -LR 1,000 ML IV ONE
[2020-08-14 11:46] LABS: BASO % 0.3 % (0.0-1.0); EOS # 0.1 10^3/uL (0.0-0.5); EOS % 1.4 % (0.0-3.0); HEMATOCRIT 35.6 % (36.0-47.0); HEMOGLOBIN 10.7 g/dl (12.0-15.5); LYMPH # 1.5 10^3/uL (1.5-5.0); MEAN CORPUSCULAR HEMOGLOBIN 25.1 pg (27.0-33.0); MEAN CORPUSCULAR HGB CONC 30.1 g/dl (32.0-36.5); MEAN CORPUSCULAR VOLUME 83.4 fl (80.0-96.0); MONO # 0.5 10^3/uL (0.0-0.8); MONO % 8.6 % (2.0-8.0); NEUTROPHILS # 3.7 10^3/uL (1.5-8.5); NEUTROPHILS % 63.2 % (36.0-66.0); PLATELET COUNT, AUTOMATED 372 10^3/uL (150-450); RED BLOOD COUNT 4.27 10^6/uL (4.00-5.40); WHITE BLOOD COUNT 5.8 10^3/uL (4.0-10.0)
[2020-08-14 12:03] LABS: PERCENT SATURATION 12.5 % (13.2-45.0)
== END ==
LOC: M LAB 11:05
PROVIDERS: ATTEND Physician Assistant Medical
DX: D50.9 Iron deficiency anemia, unspecified (principal)

== ENCOUNTER 2020-09-26 15:05 | Emergency (ER) | payer OTHER ==
[~2020-09-26] VITALS: Ht 160 cm; Wt 80.4 kg
[2020-09-26 15:10] VITALS: BP 142/75
[2020-09-26 17:28] LABS: BASO % 0.3 % (0.0-1.0); EOS # 0.1 10^3/uL (0.0-0.5); EOS % 0.7 % (0.0-3.0); HEMATOCRIT 38.4 % (36.0-47.0); HEMOGLOBIN 11.7 g/dl (12.0-15.5); LYMPH # 1.9 10^3/uL (1.5-5.0); LYMPH % 25.8 % (24.0-44.0); MEAN CORPUSCULAR HEMOGLOBIN 25.4 pg (27.0-33.0); MEAN CORPUSCULAR HGB CONC 30.5 g/dl (32.0-36.5); MEAN CORPUSCULAR VOLUME 83.3 fl (80.0-96.0); MONO # 0.5 10^3/uL (0.0-0.8); MONO % 6.4 % (2.0-8.0); NEUTROPHILS # 4.8 10^3/uL (1.5-8.5); NEUTROPHILS % 66.5 % (36.0-66.0); PLATELET COUNT, AUTOMATED 382 10^3/uL (150-450); RED BLOOD COUNT 4.61 10^6/uL (4.00-5.40); WHITE BLOOD COUNT 7.2 10^3/uL (4.0-10.0)
[2020-09-26 17:49] LABS: APPEARANCE, URINE CLEAR (CLEAR); BACTERIA, URINE AUTO NEGATIVE (NEGATIVE); BILIRUBIN, URINE AUTO NEGATIVE (NEGATIVE); BLOOD, URINE BLOOD 1+ (NEGATIVE); COLOR, URINE STRAW (YELLOW); GLUCOSE, URINE (UA) AUTO 3+ mg/dL (NEGATIVE); KETONE, URINE AUTO NEGATIVE (NEGATIVE); LEUKOCYTE ESTERASE, URINE AUTO NEGATIVE (NEGATIVE); NITRITE, URINE AUTO NEGATIVE (NEGATIVE); PROTEIN, URINE AUTO NEGATIVE (NEGATIVE); RBC, URINE AUTO 1 /HPF (0-3); SPECIFIC GRAVITY URINE AUTO 1.003 (1.002-1.035); SQUAMOUS EPITHELIAL CELL UR AU 1 /HPF (0-6); UROBILINOGEN, URINE AUTO 0.2 mg/dL (0.0-2.0); WBC, URINE AUTO 1 /HPF (0-3)
[2020-09-26 18:03] LABS: ALBUMIN 3.8 GM/DL (3.2-5.2); ALT/SGPT 30 U/L (12-78); BILIRUBIN,DIRECT 0.1 MG/DL (0.0-0.2); BILIRUBIN,TOTAL 0.3 MG/DL (0.2-1.0); BLOOD UREA NITROGEN 14 MG/DL (7-18); CALCIUM LEVEL 9.3 MG/DL (8.5-10.1); CARBON DIOXIDE LEVEL 25 MEQ/L (21-32); CHLORIDE LEVEL 104 MEQ/L (98-107); CREATININE FOR GFR 0.87 MG/DL (0.55-1.30); GLOMERULAR FILTRATION RATE > 60.0 (>58); GLUCOSE, FASTING 289 MG/DL (70-100); NT-PRO BNP 128 PG/ML (<125); POTASSIUM SERUM 4.3 MEQ/L (3.5-5.1); SODIUM LEVEL 137 MEQ/L (136-145); THYROID STIMULATING HORMONE < 0.005 uIU/ML (0.358-3.740); TOTAL PROTEIN 7.7 GM/DL (6.4-8.2)
[2020-09-26 18:39] LABS: FREE T3 3.5 PG/ML (2.2-4.0); FREE T4 1.72 NG/DL (0.76-1.46)
== END 2020-09-26 18:31 | disposition home or self-care (01) ==
LOC: M ED 15:05
DX: R60.9 Edema, unspecified (principal); R94.6 Abnormal results of thyroid function studies; K21.9 Gastro-esophageal reflux disease without esophagitis; I10 Essential (primary) hypertension; E10.9 Type 1 diabetes mellitus without complications; Z79.4 Long term (current) use of insulin; Z88.0 Allergy status to penicillin; Z88.2 Allergy status to sulfonamides; Z88.6 Allergy status to analgesic agent; Z88.5 Allergy status to narcotic agent; Z91.040 Latex allergy status

== ENCOUNTER → 2020-10-01 | Outpatient (REF) | payer OTHER | LOC: M SFHCPLAZ 10:13 | PROVIDERS: ATTEND Family Medicine | DX: E10.8 Type 1 diabetes mellitus with unspecified complications (principal) ==

== ENCOUNTER → 2020-11-19 | Outpatient (CLI) | payer OTHER ==
[~2020-11-19] MED LIST changes: +DOXY-443 PO; -DOXY100C37 PO; +FERR325T82; +LEVO125T4; +OMEP-173; -OMEP-218; +OMEP40CA4 PO; -OMEP40CA97 PO; +PRED10TA2 PO
[2020-11-19 13:37] LABS: HEMOGLOBIN A1c 8.9 %
== END ==
LOC: M PLALAB 11:26
PROVIDERS: ATTEND Family Medicine
DX: E10.8 Type 1 diabetes mellitus with unspecified complications (principal)

== ENCOUNTER → 2020-11-20 | Outpatient (CLI) | payer OTHER | LOC: M LABSMTC 09:37 | PROVIDERS: ATTEND Anesthesiology | DX: Z01.812 Encounter for preprocedural laboratory examination (principal) ==

== ENCOUNTER 2020-11-25 10:28 | Day surgery (SDC) | payer OTHER ==
[~2020-11-25] VITALS: Ht 160 cm; Wt 80.3 kg
[~2020-11-25 10:28] MED LIST changes: -DOXY-443 PO; +DOXY1CAP62 PO; +LIDOCAINE 2% 100MG/5ML SDV (FOR ANES.) As Ordered ONE; +NS 1,000 ML IV ONE; -OMEP-173; +OMEP-218; -PRED10TA2 PO; +propofoL 200 MG/20 ML VIAL As Ordered ONE
--- NOTE | 2020-11-25 14:13 | ROOR ---
Patient Name: Juventino Maier Procedure Date: 11/25/2020 1:34 PM Date of : 1975 Age: 45 Room: [facility] Gender: Female Note Status: Finalized Procedure: Colonoscopy Indications: Iron deficiency anemia Providers: Jesus Johnson MD Referring MD: ELI SANTACRUZ Helder [facility] ELI Perkins Requesting Provider: Medicines: Monitored Anesthesia Care Complications: No immediate complications. Procedure: Pre-Anesthesia Assessment: - Prior to the procedure, a History and Physical was performed, and patient medications and allergies were reviewed. The patient is competent. The risks and benefits of the procedure and the sedation options and risks were discussed with the patient. All questions were answered and informed consent was obtained. Patient identification and proposed procedure were verified by the physician, the nurse and the anesthesiologist in the pre-procedure area. Mental Status Examination: normal. Airway Examination: normal oropharyngeal airway and neck mobility. Respiratory Examination: clear to auscultation. CV Examination: normal. Prophylactic Antibiotics: The patient does not require prophylactic antibiotics. Prior Anticoagulants: The patient has taken no previous anticoagulant or antiplatelet agents. ASA Grade Assessment: II - A patient with mild systemic disease. After reviewing the risks and benefits, the patient was deemed in satisfactory condition to undergo the procedure. The anesthesia plan was to use monitored anesthesia care (MAC). Immediately prior to administration of medications, the patient was re-assessed for adequacy to receive sedatives. The heart rate, respiratory rate, oxygen saturations, blood pressure, adequacy of pulmonary ventilation, and response to care were monitored throughout the procedure. The physical status of the patient was re-assessed after the procedure. The Colonoscope was introduced through the anus and advanced to the terminal ileum, with identification of the appendiceal orifice and IC valve. The colonoscopy was performed without difficulty. The patient tolerated the procedure well. The quality of the bowel preparation was adequate to identify polyps 6 mm and larger in size and fair. The terminal ileum, ileocecal valve, appendiceal orifice, and rectum were photographed. Scope insertion time was 2 minutes. Scope withdrawal time was 8 minutes. The total duration of the procedure was 15 minutes. Findings: The perianal and digital rectal examinations were normal. The terminal ileum appeared normal. Extensive amounts of stool was found from rectum to cecum, interfering with visualization. Lavage of the area was performed using a large amount of sterile water, resulting in clearance with fair visualization. Non-bleeding external and internal hemorrhoids were found during retroflexion. The hemorrhoids were medium-sized. Impression: - Preparation of the colon was fair. - The examined portion of the ileum was normal. - Stool from rectum to cecum. - Non-bleeding external and internal hemorrhoids. - No specimens collected. Recommendation: - Patient has a contact number available for emergencies. The signs and symptoms of potential delayed complications were discussed with the patient. Return to normal activities tomorrow. Written discharge instructions were provided to the patient. - High fiber diet. - Continue present medications. - Repeat colonoscopy in 1 year for screening purposes and because the bowel preparation was suboptimal. - Return to GI clinic in 3 months. - Return to primary care physician. Procedure Code(s): --- Professional --- 07810, Colonoscopy, flexible; diagnostic, including collection of specimen(s) by brushing or washing, when performed (separate procedure) Diagnosis Code(s): --- Professional --- K64.8, Other hemorrhoids D50.9, Iron deficiency anemia, unspecified CPT copyright 2019 [employer]. All rights reserved. The codes documented in this report are preliminary and upon blacksmith hammer operator review may be revised to meet current compliance requirements. Jesus Johnson MD Jesus Johnson MD 11/25/2020 2:13:18 PM Electronically signed by Jesus Johnson MD Number of Addenda: 0 Note Initiated On: 11/25/2020 1:34 PM Estimated Blood Loss: Estimated blood loss was minimal.
[2020-11-25 14:22] VITALS: BP 99/57
== END 2020-11-25 14:22 | disposition home or self-care (01) ==
LOC: M OPP 10:28
PROVIDERS: ATTEND Internal Medicine Gastroenterology
DX: D50.9 Iron deficiency anemia, unspecified (principal); K64.8 Other hemorrhoids; E10.9 Type 1 diabetes mellitus without complications; F17.210 Nicotine dependence, cigarettes, uncomplicated; Z79.4 Long term (current) use of insulin; Z79.899 Other long term (current) drug therapy; Z88.0 Allergy status to penicillin; Z88.2 Allergy status to sulfonamides; Z88.5 Allergy status to narcotic agent; Z88.8 Allergy status to other drugs, medicaments and biological substances; Z91.040 Latex allergy status; Z95.828 Presence of other vascular implants and grafts; Z86.718 Personal history of other venous thrombosis and embolism; Z86.14 Personal history of Methicillin resistant Staphylococcus aureus infection

== ENCOUNTER → 2020-11-29 | Outpatient (REF) | payer OTHER ==
[~2020-11-29] MED LIST changes: -LIDOCAINE 2% 100MG/5ML SDV (FOR ANES.) As Ordered ONE; -NS 1,000 ML IV ONE; -propofoL 200 MG/20 ML VIAL As Ordered ONE
== END ==
LOC: M SFHCPLAZ 12:12
PROVIDERS: ATTEND Family Medicine
DX: E03.9 Hypothyroidism, unspecified (principal)

== ENCOUNTER → 2020-12-03 | Outpatient (CLI) | payer OTHER ==
[2020-12-03 14:07] LABS: FREE T4 1.03 NG/DL (0.76-1.46); THYROID STIMULATING HORMONE 1.84 uIU/ML (0.358-3.740)
== END ==
LOC: M PLALAB 11:44
PROVIDERS: ATTEND Physician Assistant
DX: E03.9 Hypothyroidism, unspecified (principal)

== ENCOUNTER → 2020-12-15 | Outpatient (CLI) | payer OTHER ==
[2020-12-15 14:24] LABS: FREE T4 1.06 NG/DL (0.76-1.46); THYROID STIMULATING HORMONE 3.55 uIU/ML (0.358-3.740)
== END ==
LOC: M PLALAB 11:40
PROVIDERS: ATTEND Family Medicine
DX: E03.9 Hypothyroidism, unspecified (principal)

== ENCOUNTER → 2021-01-20 | Outpatient (CLI) | payer OTHER ==
[2021-01-20 14:49] LABS: BASO % 0.5 % (0.0-1.0); EOS # 0.1 10^3/uL (0.0-0.5); EOS % 1.6 % (0.0-3.0); HEMOGLOBIN 14.1 g/dl (12.0-15.5); LYMPH # 2.1 10^3/uL (1.5-5.0); LYMPH % 26.1 % (24.0-44.0); MEAN CORPUSCULAR HEMOGLOBIN 28.1 pg (27.0-33.0); MEAN CORPUSCULAR VOLUME 87.6 fl (80.0-96.0); MONO # 0.6 10^3/uL (0.0-0.8); MONO % 7.3 % (2.0-8.0); NEUTROPHILS # 5.2 10^3/uL (1.5-8.5); NEUTROPHILS % 63.9 % (36.0-66.0); RED BLOOD COUNT 5.02 10^6/uL (4.00-5.40); WHITE BLOOD COUNT 8.2 10^3/uL (4.0-10.0)
[2021-01-20 15:09] LABS: PERCENT SATURATION 23.4 % (13.2-45.0)
== END ==
LOC: M PLALAB 13:13
PROVIDERS: ATTEND Physician Assistant Medical
DX: D50.9 Iron deficiency anemia, unspecified (principal)

== ENCOUNTER 2021-01-31 20:56 | Emergency (ER) | payer OTHER ==
[~2021-01-31] VITALS: Ht 160 cm; Wt 84.7 kg
[2021-01-31 20:58] VITALS: BP 101/61
== END 2021-01-31 23:04 | disposition left against medical advice (07) ==
LOC: M ED 20:56
DX: Z53.21 Procedure and treatment not carried out due to patient leaving prior to being seen by health care provider (principal)

== ENCOUNTER → 2021-02-18 | Outpatient (CLI) | payer OTHER ==
--- NOTE | 2021-02-18 12:00 | REP ---
INDICATION: PAIN LT ANKLE/FOOT, R/O DVT LABS FIRST COMPARISON: None TECHNIQUE: Wood scale and color Doppler evaluation using linear high frequency transducer. FINDINGS: Ultrasound examination of the left lower extremity deep venous structures from the common femoral vein through the calf/ankle to include the peroneal, and tibial veins demonstrates normal compressibility flow and wave patterns in response to respiration and augmentation. There is no evidence for deep venous thrombosis. Contralateral CFV is patent and normal. IMPRESSION: No evidence for deep venous thrombosis. <Electronically signed by Enrique Krishnamurthy > 02/18/21 0849
[2021-02-18 12:26] LABS: BASO % 0.4 % (0.0-1.0); EOS # 0.1 10^3/uL (0.0-0.5); EOS % 1.4 % (0.0-3.0); HEMATOCRIT 42.2 % (36.0-47.0); HEMOGLOBIN 13.5 g/dl (12.0-15.5); LYMPH # 1.8 10^3/uL (1.5-5.0); LYMPH % 22.1 % (24.0-44.0); MEAN CORPUSCULAR HEMOGLOBIN 28.7 pg (27.0-33.0); MEAN CORPUSCULAR VOLUME 89.6 fl (80.0-96.0); MONO # 0.5 10^3/uL (0.0-0.8); MONO % 6.3 % (2.0-8.0); NEUTROPHILS # 5.8 10^3/uL (1.5-8.5); NEUTROPHILS % 69.3 % (36.0-66.0); RED BLOOD COUNT 4.71 10^6/uL (4.00-5.40); WHITE BLOOD COUNT 8.3 10^3/uL (4.0-10.0)
[2021-02-18 13:51] LABS: ERYTHROCYTE SEDIMENTATION RATE 37 mm/hr (0-20)
== END ==
LOC: M RAD 10:49
PROVIDERS: ATTEND Physician Assistant
DX: M25.572 Pain in left ankle and joints of left foot (principal)

== ENCOUNTER → 2021-03-18 | Outpatient (REF) | payer OTHER ==
[~2021-03-18] MED LIST changes: +DOXY-443 PO; -DOXY1CAP62 PO
== END ==
LOC: M SFHCPLAZ 09:45
PROVIDERS: ATTEND Family Medicine
DX: E10.8 Type 1 diabetes mellitus with unspecified complications (principal)

== ENCOUNTER → 2021-05-09 | Outpatient (CLI) | payer OTHER ==
[~2021-05-09] MED LIST changes: +OMEP-173; -OMEP-218; +PRED10TA2 PO
[2021-05-09 10:48] LABS: HEMOGLOBIN A1c 9.3 %
== END ==
LOC: M PLALAB 08:59
PROVIDERS: ATTEND Family Medicine
DX: E10.8 Type 1 diabetes mellitus with unspecified complications (principal)

== ENCOUNTER 2021-06-10 10:54 | Emergency (ER) | payer OTHER ==
[~2021-06-10] VITALS: Ht 160 cm; Wt 89.4 kg
[~2021-06-10 10:54] MED LIST changes: -PRED10TA2 PO
[2021-06-10 11:07] VITALS: BP 137/78
[2021-06-10] MEDS ORDERED: ALBUTEROL 90 MCG/ACT 8GM HFA INHALER INH STA (11:27)
[2021-06-10] MEDS ORDERED: predniSONE 20 MG TAB PO ONE (11:35)
[2021-06-10] MEDS ORDERED: PRED10TA2 PO (11:35)
== END 2021-06-10 12:52 | disposition home or self-care (01) ==
LOC: M ED 10:54
DX: U07.1 COVID-19 (principal); E10.9 Type 1 diabetes mellitus without complications; J45.909 Unspecified asthma, uncomplicated; I10 Essential (primary) hypertension; F32.A Depression, unspecified; J44.9 Chronic obstructive pulmonary disease, unspecified; F17.200 Nicotine dependence, unspecified, uncomplicated; Z88.0 Allergy status to penicillin; Z88.2 Allergy status to sulfonamides; Z88.5 Allergy status to narcotic agent; Z88.6 Allergy status to analgesic agent; Z91.040 Latex allergy status; Z79.4 Long term (current) use of insulin; Z79.51 Long term (current) use of inhaled steroids; Z79.899 Other long term (current) drug therapy
CPT/HCPCS: 93005; 94640; 99284; J7512

== ENCOUNTER 2021-07-29 10:24 | Outpatient (RCR) | payer OTHER ==
[~2021-07-29 10:24] MED LIST changes: +PRED10TA2 PO
== END 2021-08-11 ==
LOC: M PT 10:24
PROVIDERS: ATTEND Physician Assistant
DX: S82.492D Other fracture of shaft of left fibula, subsequent encounter for closed fracture with routine healing (principal)

== ENCOUNTER → 2021-10-03 | Outpatient (REF) | payer OTHER ==
[~2021-10-03] MED LIST changes: +BENZ1LOZ9 PO; -CEPALOZ8 PO
== END ==
LOC: M SFHCPLAZ 10:32
PROVIDERS: ATTEND Family Medicine
DX: E10.8 Type 1 diabetes mellitus with unspecified complications (principal); Z53.9 Procedure and treatment not carried out, unspecified reason

== ENCOUNTER → 2021-10-17 | Outpatient (CLI) | payer OTHER ==
[2021-10-17 16:24] LABS: MALB URINE SIEMENS 95.9 MG/L; MAU/CREAT RATIO 69.4 MCG/MG (0.0-30.0)
[2021-10-17 17:12] LABS: HEMOGLOBIN A1c 8.9 %
== END ==
LOC: M PLALAB 13:03
PROVIDERS: ATTEND Family Medicine
DX: E10.8 Type 1 diabetes mellitus with unspecified complications (principal)

== ENCOUNTER → 2022-05-17 | Outpatient (CLI) | payer OTHER ==
[2022-05-17 17:22] LABS: BASO # 0.1 10^3/uL (0.0-0.2); BASO % 0.6 % (0.0-1.0); EOS # 0.1 10^3/uL (0.0-0.5); EOS % 1.4 % (0.0-3.0); HEMATOCRIT 41.7 % (36.0-47.0); HEMOGLOBIN 13.3 g/dl (12.0-15.5); LYMPH # 2.8 10^3/uL (1.5-5.0); LYMPH % 28.5 % (24.0-44.0); MEAN CORPUSCULAR HEMOGLOBIN 28.7 pg (27.0-33.0); MEAN CORPUSCULAR HGB CONC 31.9 g/dl (32.0-36.5); MEAN CORPUSCULAR VOLUME 90.1 fl (80.0-96.0); MONO # 0.6 10^3/uL (0.0-0.8); MONO % 6.5 % (2.0-8.0); NEUTROPHILS # 6.2 10^3/uL (1.5-8.5); NEUTROPHILS % 62.6 % (36.0-66.0); PLATELET COUNT, AUTOMATED 254 10^3/uL (150-450); RED BLOOD COUNT 4.63 10^6/uL (4.00-5.40); WHITE BLOOD COUNT 9.9 10^3/uL (4.0-10.0)
[2022-05-17 17:38] LABS: ERYTHROCYTE SEDIMENTATION RATE 63 mm/hr (0-20)
[2022-05-17 17:51] LABS: C REACTIVE PROTEIN QUANTITATIV 2.3 MG/DL (<1.0)
[2022-05-19 12:08] LABS: ANTINUCLEAR ANTIBODIES DIRECT Negative (Negative)
== END ==
LOC: M PLALAB 16:14
PROVIDERS: ATTEND Physician Assistant
DX: M25.521 Pain in right elbow (principal)

== ENCOUNTER → 2022-05-30 | Outpatient (CLI) | payer OTHER | LOC: M WHC 10:03 | PROVIDERS: ATTEND Nurse Practitioner Family | DX: N63.32 Unspecified lump in axillary tail of the left breast (principal) ==

== ENCOUNTER → 2022-06-02 | Outpatient (CLI) | payer OTHER | LOC: M PLALAB 15:46 | PROVIDERS: ATTEND Physician Assistant | DX: M25.521 Pain in right elbow (principal) ==

== ENCOUNTER → 2022-08-11 | Outpatient (CLI) | payer OTHER | LOC: M RAD 08:49 | PROVIDERS: ATTEND Student in an Organized Health Care Education/Training Program | DX: R80.9 Proteinuria, unspecified (principal) ==

== ENCOUNTER → 2022-08-30 | Outpatient (REF) | payer OTHER | LOC: M PLALAB 14:20 | PROVIDERS: ATTEND Nurse Practitioner Family | DX: Z12.4 Encounter for screening for malignant neoplasm of cervix (principal) ==

== ENCOUNTER → 2022-09-27 | Outpatient (CLI) | payer OTHER ==
[2022-09-27 11:18] LABS: BASO # 0.1 10^3/uL (0.0-0.2); BASO % 0.6 % (0.0-1.0); EOS # 0.1 10^3/uL (0.0-0.5); EOS % 1.5 % (0.0-3.0); HEMOGLOBIN 13.4 g/dl (12.0-15.5); LYMPH # 2.3 10^3/uL (1.5-5.0); LYMPH % 26.9 % (24.0-44.0); MEAN CORPUSCULAR HEMOGLOBIN 28.3 pg (27.0-33.0); MEAN CORPUSCULAR HGB CONC 31.2 g/dl (32.0-36.5); MEAN CORPUSCULAR VOLUME 90.7 fl (80.0-96.0); MONO # 0.6 10^3/uL (0.0-0.8); MONO % 7.5 % (2.0-8.0); NEUTROPHILS # 5.4 10^3/uL (1.5-8.5); NEUTROPHILS % 63.1 % (36.0-66.0); PLATELET COUNT, AUTOMATED 155 10^3/uL (150-450); RED BLOOD COUNT 4.74 10^6/uL (4.00-5.40); WHITE BLOOD COUNT 8.5 10^3/uL (4.0-10.0)
[2022-09-27 11:45] LABS: HEMOGLOBIN A1c 9.4 % (4.0-6.0)
[2022-09-27 11:46] LABS: ALBUMIN 3.9 G/DL (3.2-5.2); ALKALINE PHOSPHATASE 140 U/L (46-116); ALT/SGPT 43 U/L (7.0-40); AST/SGOT 39 U/L (<34); BILIRUBIN,TOTAL 0.3 MG/DL (0.3-1.2); BLOOD UREA NITROGEN 17 MG/DL (9-23); CALCIUM LEVEL 9.5 MG/DL (8.5-10.1); CARBON DIOXIDE LEVEL 28 MMOL/L (20-31); CHLORIDE LEVEL 104 MMOL/L (98-107); CHOLESTEROL LEVEL 204 MG/DL (<200); CHOLESTEROL RISK RATIO 5.66 (<5); CREATININE FOR GFR 0.81 MG/DL (0.55-1.30); GLOMERULAR FILTRATION RATE > 60.0 (>58); GLUCOSE, FASTING 108 MG/DL (60-100); LDL CHOLESTEROL 123.8 MG/DL (<100); POTASSIUM SERUM 4.3 MMOL/L (3.5-5.1); SODIUM LEVEL 139 MMOL/L (136-145); TRIGLYCERIDES LEVEL 221 MG/DL (<150)
== END ==
LOC: M RAD 09:54
PROVIDERS: ATTEND Student in an Organized Health Care Education/Training Program
DX: S93.491A Sprain of other ligament of right ankle, initial encounter (principal); E10.8 Type 1 diabetes mellitus with unspecified complications; W18.30XA Fall on same level, unspecified, initial encounter; Y92.009 Unspecified place in unspecified non-institutional (private) residence as the place of occurrence of the external cause

== ENCOUNTER 2022-10-24 10:52 | Emergency (ER) | payer OTHER ==
[~2022-10-24] VITALS: Ht 157.5 cm; Wt 95.1 kg
[2022-10-24 14:25] LABS: CK-MB VALUE MASS 1.2 NG/ML (<3.6)
[2022-10-24 14:26] LABS: CPK CREATINE PHOSPHOKINASE 141 U/L (34-145); MB/CK RELATIVE INDEX 0.85 (< OR =4)
[2022-10-24 14:27] LABS: ALBUMIN 3.7 G/DL (3.2-5.2); ALKALINE PHOSPHATASE 167 U/L (46-116); ALT/SGPT 37 U/L (7.0-40); AST/SGOT 28 U/L (<34); BILIRUBIN,DIRECT < 0.1 MG/DL (<0.4); BILIRUBIN,TOTAL 0.2 MG/DL (0.3-1.2); BLOOD UREA NITROGEN 11 MG/DL (9-23); CALCIUM LEVEL 8.7 MG/DL (8.5-10.1); CARBON DIOXIDE LEVEL 24 MMOL/L (20-31); CHLORIDE LEVEL 108 MMOL/L (98-107); CREATININE FOR GFR 0.78 MG/DL (0.55-1.30); GLOMERULAR FILTRATION RATE > 60.0 (>58); GLUCOSE, FASTING 186 MG/DL (60-100); POTASSIUM SERUM 4.2 MMOL/L (3.5-5.1); SODIUM LEVEL 138 MMOL/L (136-145); TOTAL PROTEIN 6.9 G/DL (5.7-8.2)
[2022-10-24 14:38] LABS: BASO % 0.4 % (0.0-1.0); EOS # 0.1 10^3/uL (0.0-0.5); EOS % 1.4 % (0.0-3.0); HEMATOCRIT 42.5 % (36.0-47.0); HEMOGLOBIN 13.4 g/dl (12.0-15.5); LYMPH # 1.9 10^3/uL (1.5-5.0); LYMPH % 20.5 % (24.0-44.0); MEAN CORPUSCULAR HEMOGLOBIN 28.5 pg (27.0-33.0); MEAN CORPUSCULAR HGB CONC 31.5 g/dl (32.0-36.5); MEAN CORPUSCULAR VOLUME 90.4 fl (80.0-96.0); MONO # 0.5 10^3/uL (0.0-0.8); MONO % 5.7 % (2.0-8.0); NEUTROPHILS # 6.7 10^3/uL (1.5-8.5); NEUTROPHILS % 71.6 % (36.0-66.0); PLATELET COUNT, AUTOMATED 146 10^3/uL (150-450); WHITE BLOOD COUNT 9.4 10^3/uL (4.0-10.0)
[2022-10-24 15:46] LABS: INR 0.9; PROTHROMBIN TIME 12.3 SECONDS (12.5-14.5)
[2022-10-24 15:47] LABS: PARTIAL THROMBOPLASTIN TIME 27.6 SECONDS (24.8-34.2)
[2022-10-24] MEDS ORDERED: KETOROLAC 30 MG/ML 1ML VIAL IV ONE (16:55)
[2022-10-24 17:06] LABS: CK-MB VALUE MASS 1.8 NG/ML (<3.6)
[2022-10-24 17:07] LABS: MB/CK RELATIVE INDEX 1.33 (< OR =4)
[2022-10-24] MEDS ORDERED: LIDOCAINE 5% (LIDODERM) PATCH TD ONE (17:45)
[2022-10-24] MEDS ORDERED: LIDO5DIS41 TD (17:46)
[2022-10-24 17:54] VITALS: BP 147/69; TEMP 98.1; O2SAT 96
== END 2022-10-24 18:04 | disposition home or self-care (01) ==
LOC: M ED 10:52
DX: M50.30 Other cervical disc degeneration, unspecified cervical region (principal); I10 Essential (primary) hypertension; E03.9 Hypothyroidism, unspecified; E78.5 Hyperlipidemia, unspecified; E10.9 Type 1 diabetes mellitus without complications; F17.200 Nicotine dependence, unspecified, uncomplicated; F10.10 Alcohol abuse, uncomplicated; Z88.0 Allergy status to penicillin; Z88.2 Allergy status to sulfonamides; Z88.5 Allergy status to narcotic agent; Z91.040 Latex allergy status; Z79.52 Long term (current) use of systemic steroids; Z79.811 Long term (current) use of aromatase inhibitors; Z79.899 Other long term (current) drug therapy
CPT/HCPCS: 71045; 71275; 72052; 73030; 80048; 80076; 82550; 82553; 85025; 85610; 85730; 93005; 93041; 94760; 96374; 99284; J1885

== ENCOUNTER → 2023-01-23 | Outpatient (CLI) | payer OTHER ==
[~2023-01-23] MED LIST changes: +CELE0.09 PO; -CELE1CAP9 PO; -INSU100V2 SQ; +INSU100V6 SQ; +LIDO5DIS41 TD; +[UNRECOGNIZED DRUG - CODE] XX; -[UNRECOGNIZED DRUG - CODE] XX
== END ==
LOC: M PLAIMG 12:29
PROVIDERS: ATTEND Family Medicine
DX: M77.31 Calcaneal spur, right foot (principal)

== ENCOUNTER → 2023-02-14 | Outpatient (REF) | payer OTHER | LOC: M SFHCPLAZ 12:11 | PROVIDERS: ATTEND Student in an Organized Health Care Education/Training Program | DX: Z53.9 Procedure and treatment not carried out, unspecified reason (principal); E10.8 Type 1 diabetes mellitus with unspecified complications; I10 Essential (primary) hypertension ==

== ENCOUNTER → 2023-02-20 | Outpatient (REF) | payer OTHER ==
[~2023-02-20] MED LIST changes: -OXYB5TAB10 PO; +OXYB5TAB11 PO
== END ==
LOC: M SFHCPLAZ 12:32
PROVIDERS: ATTEND Student in an Organized Health Care Education/Training Program
DX: Z53.9 Procedure and treatment not carried out, unspecified reason (principal); E10.8 Type 1 diabetes mellitus with unspecified complications; I10 Essential (primary) hypertension

== ENCOUNTER → 2023-02-20 | Outpatient (CLI) | payer OTHER ==
[~2023-02-20] MED LIST changes: +OXYB5TAB10 PO; -OXYB5TAB11 PO
[2023-02-20 13:37] LABS: BASO % 0.3 % (0.0-1.0); EOS # 0.1 10^3/uL (0.0-0.5); EOS % 1.4 % (0.0-3.0); HEMATOCRIT 39.4 % (36.0-47.0); HEMOGLOBIN 12.2 g/dl (12.0-15.5); LYMPH # 1.9 10^3/uL (1.5-5.0); MEAN CORPUSCULAR HEMOGLOBIN 28.4 pg (27.0-33.0); MEAN CORPUSCULAR VOLUME 91.6 fl (80.0-96.0); MONO # 0.5 10^3/uL (0.0-0.8); NEUTROPHILS # 6.4 10^3/uL (1.5-8.5); PLATELET COUNT, AUTOMATED 184 10^3/uL (150-450)
[2023-02-20 14:05] LABS: HEMOGLOBIN A1c 8.4 % (4.0-6.0)
[2023-02-20 14:08] LABS: CREATININE, URINE 94.3 MG/DL; MAU/CREAT RATIO 143.1 MCG/MG (0.0-30.0)
[2023-02-20 14:08] LABS: ALBUMIN 3.5 G/DL (3.2-5.2); ALKALINE PHOSPHATASE 161 U/L (46-116); ALT/SGPT 30 U/L (7.0-40); AST/SGOT 20 U/L (<34); BILIRUBIN,TOTAL 0.3 MG/DL (0.3-1.2); BLOOD UREA NITROGEN 15 MG/DL (9-23); CALCIUM LEVEL 9.1 MG/DL (8.5-10.1); CARBON DIOXIDE LEVEL 28 MMOL/L (20-31); CHLORIDE LEVEL 107 MMOL/L (98-107); CHOLESTEROL LEVEL 137 MG/DL (<200); CREATININE FOR GFR 0.78 MG/DL (0.55-1.30); GLOMERULAR FILTRATION RATE > 60.0 (>58); GLUCOSE, FASTING 179 MG/DL (60-100); HDL CHOLESTEROL 31.8 MG/DL (>40); NON-HDL-C 105.2 MG/DL; POTASSIUM SERUM 4.2 MMOL/L (3.5-5.1); SODIUM LEVEL 141 MMOL/L (136-145); TOTAL PROTEIN 6.9 G/DL (5.7-8.2); TRIGLYCERIDES LEVEL 176 MG/DL (<150)
== END ==
LOC: M PLALAB 11:12
PROVIDERS: ATTEND Student in an Organized Health Care Education/Training Program
DX: E10.8 Type 1 diabetes mellitus with unspecified complications (principal); I10 Essential (primary) hypertension

== ENCOUNTER → 2023-07-13 | Outpatient (REF) | payer MEDICAID, OTHER ==
[~2023-07-13] MED LIST changes: -OXYB5TAB10 PO; +OXYB5TAB14 PO
== END ==
LOC: M SFHCPLAZ 09:49
PROVIDERS: ATTEND Physician Assistant
DX: J40 Bronchitis, not specified as acute or chronic (principal)

== ENCOUNTER → 2023-07-18 | Outpatient (REF) | payer OTHER, MEDICAID | LOC: M SFHCPLAZ 16:56 | PROVIDERS: ATTEND Physician Assistant Medical | DX: J06.9 Acute upper respiratory infection, unspecified (principal) ==

== ENCOUNTER → 2023-07-30 | Outpatient (CLI) | payer OTHER | LOC: M WHC 08:53 | PROVIDERS: ATTEND Nurse Practitioner Family | DX: R22.32 Localized swelling, mass and lump, left upper limb (principal) ==

== ENCOUNTER → 2023-07-30 | Outpatient (CLI) | payer OTHER | LOC: M WHC 08:48 | PROVIDERS: ATTEND Nurse Practitioner Family | DX: Z12.31 Encounter for screening mammogram for malignant neoplasm of breast (principal) ==

== ENCOUNTER → 2023-10-01 | Outpatient (REF) | payer OTHER, MEDICAID ==
[~2023-10-01] MED LIST changes: +DOXY-323 PO; -DOXY-443 PO
== END ==
LOC: M SFHCPLAZ 10:33
PROVIDERS: ATTEND Student in an Organized Health Care Education/Training Program
DX: E10.8 Type 1 diabetes mellitus with unspecified complications (principal); E78.2 Mixed hyperlipidemia; E03.9 Hypothyroidism, unspecified; Z53.9 Procedure and treatment not carried out, unspecified reason

== ENCOUNTER 2023-10-15 14:25 | Emergency (ER) | payer MEDICAID, OTHER ==
[~2023-10-15] VITALS: Ht 160 cm; Wt 97.0 kg
[2023-10-15 14:26] VITALS: BP 143/79; TEMP 97.6; O2SAT 97
== END 2023-10-15 19:52 | disposition left against medical advice (07) ==
LOC: M ED 14:25
DX: Z53.21 Procedure and treatment not carried out due to patient leaving prior to being seen by health care provider (principal)

== ENCOUNTER → 2023-10-18 | Outpatient (CLI) | payer OTHER | LOC: M PLALAB 14:04 | PROVIDERS: ATTEND Student in an Organized Health Care Education/Training Program | DX: H54.60 Unqualified visual loss, one eye, unspecified (principal) ==

== ENCOUNTER → 2023-10-18 | Outpatient (CLI) | payer MEDICAID, OTHER | LOC: M RAD 15:02 | PROVIDERS: ATTEND Student in an Organized Health Care Education/Training Program | DX: H54.60 Unqualified visual loss, one eye, unspecified (principal) ==

== ENCOUNTER → 2023-11-07 | Outpatient (CLI) | payer OTHER | LOC: M PLAIMG 09:20 | PROVIDERS: ATTEND Physician Assistant Surgical | DX: M79.662 Pain in left lower leg (principal) ==

== ENCOUNTER → 2023-11-07 | Outpatient (CLI) | payer OTHER ==
[2023-11-07 14:33] LABS: BASO % 0.6 % (0.0-1.0); EOS # 0.1 10^3/uL (0.0-0.5); EOS % 1.2 % (0.0-3.0); HEMATOCRIT 40.8 % (36.0-47.0); HEMOGLOBIN 12.8 g/dl (12.0-15.5); LYMPH # 1.8 10^3/uL (1.5-5.0); LYMPH % 26.9 % (24.0-44.0); MEAN CORPUSCULAR HGB CONC 31.4 g/dl (32.0-36.5); MEAN CORPUSCULAR VOLUME 89.3 fl (80.0-96.0); MONO # 0.6 10^3/uL (0.0-0.8); MONO % 8.6 % (2.0-8.0); NEUTROPHILS # 4.1 10^3/uL (1.5-8.5); NEUTROPHILS % 62.4 % (36.0-66.0); RED BLOOD COUNT 4.57 10^6/uL (4.00-5.40); WHITE BLOOD COUNT 6.5 10^3/uL (4.0-10.0)
[2023-11-07 14:54] LABS: ALBUMIN 3.5 G/DL (3.2-5.2); ALKALINE PHOSPHATASE 158 U/L (46-116); ALT/SGPT 45 U/L (7.0-40); AST/SGOT 30 U/L (<34); BILIRUBIN,TOTAL 0.4 MG/DL (0.3-1.2); BLOOD UREA NITROGEN 17 MG/DL (9-23); CALCIUM LEVEL 9.1 MG/DL (8.5-10.1); CARBON DIOXIDE LEVEL 25 MMOL/L (20-31); CHLORIDE LEVEL 108 MMOL/L (98-107); CHOLESTEROL LEVEL 130 MG/DL (<200); CREATININE FOR GFR 0.85 MG/DL (0.55-1.30); GLOMERULAR FILTRATION RATE > 60.0 (>58); GLUCOSE, FASTING 260 MG/DL (60-100); HDL CHOLESTEROL 30.9 MG/DL (>40); LDL CHOLESTEROL 44.1 MG/DL (<100); NON-HDL-C 99.1 MG/DL; POTASSIUM SERUM 4.6 MMOL/L (3.5-5.1); SODIUM LEVEL 136 MMOL/L (136-145); TOTAL PROTEIN 6.8 G/DL (5.7-8.2); TRIGLYCERIDES LEVEL 275 MG/DL (<150)
[2023-11-07 14:56] LABS: FREE T4 1.13 NG/DL (0.89-1.76)
[2023-11-07 14:57] LABS: THYROID STIMULATING HORMONE 1.296 uIU/ML (0.55-4.78)
[2023-11-07 15:13] LABS: HEMOGLOBIN A1c 9.1 % (4.0-6.0)
== END ==
LOC: M PLALAB 10:52
PROVIDERS: ATTEND Student in an Organized Health Care Education/Training Program
DX: E10.8 Type 1 diabetes mellitus with unspecified complications (principal); E78.2 Mixed hyperlipidemia; E03.9 Hypothyroidism, unspecified

== ENCOUNTER → 2023-12-31 | Outpatient (REF) | payer MEDICAID, OTHER | LOC: M SFHCPLAZ 12:26 | PROVIDERS: ATTEND Student in an Organized Health Care Education/Training Program | DX: R30.0 Dysuria (principal) ==

== ENCOUNTER → 2024-01-01 | Outpatient (REF) | payer OTHER, MEDICAID | LOC: M SFHCPLAZ 12:58 | PROVIDERS: ATTEND Student in an Organized Health Care Education/Training Program | DX: R30.0 Dysuria (principal) ==

== ENCOUNTER → 2024-01-10 | Outpatient (CLI) | payer OTHER, MEDICAID | LOC: M RAD 11:44 | PROVIDERS: ATTEND Student in an Organized Health Care Education/Training Program | DX: R10.9 Unspecified abdominal pain (principal) ==

== ENCOUNTER 2024-03-24 18:19 | Emergency (ER) | payer OTHER, MEDICAID ==
[~2024-03-24] VITALS: Ht 160 cm; Wt 97.7 kg
[~2024-03-24 18:19] MED LIST changes: -DOXY-323 PO; +DOXY-441 PO; -LEVO125T4; +LEVO125T4 PO
[2024-03-24 19:49] LABS: BASO % 0.4 % (0.0-1.0); EOS # 0.1 10^3/uL (0.0-0.5); EOS % 0.7 % (0.0-3.0); HEMATOCRIT 42.1 % (36.0-47.0); HEMOGLOBIN 13.8 g/dl (12.0-15.5); LYMPH # 4.2 10^3/uL (1.5-5.0); LYMPH % 37.7 % (24.0-44.0); MEAN CORPUSCULAR HEMOGLOBIN 29.1 pg (27.0-33.0); MEAN CORPUSCULAR HGB CONC 32.8 g/dl (32.0-36.5); MEAN CORPUSCULAR VOLUME 88.8 fl (80.0-96.0); MONO # 0.8 10^3/uL (0.0-0.8); MONO % 6.9 % (2.0-8.0); NEUTROPHILS % 53.9 % (36.0-66.0); PLATELET COUNT, AUTOMATED 310 10^3/uL (150-450); RED BLOOD COUNT 4.74 10^6/uL (4.00-5.40); WHITE BLOOD COUNT 11.2 10^3/uL (4.0-10.0)
[2024-03-24] MEDS: METOCLOPRAMIDE 10MG TAB PO ONE (19:54)
[2024-03-24] MEDS: diphenhydrAMINE 50MG/ML VIAL IV STA (19:54)
[2024-03-24 20:16] LABS: BLOOD UREA NITROGEN 26 MG/DL (9-23); CALCIUM LEVEL 10.4 MG/DL (8.5-10.1); CARBON DIOXIDE LEVEL 26 MMOL/L (20-31); CHLORIDE LEVEL 107 MMOL/L (98-107); GLOMERULAR FILTRATION RATE > 60.0 (>58); GLUCOSE, FASTING 56 MG/DL (60-100); POTASSIUM SERUM 3.5 MMOL/L (3.5-5.1); SODIUM LEVEL 140 MMOL/L (136-145)
[2024-03-24] MEDS: KETOROLAC 30 MG/ML 1ML VIAL IV ONE (21:13)
[2024-03-24 21:44] VITALS: BP 164/82; TEMP 98.2; O2SAT 96
== END 2024-03-24 22:03 | disposition home or self-care (01) ==
LOC: M ED 18:19
DX: R51.9 Headache, unspecified (principal); R04.0 Epistaxis; E11.9 Type 2 diabetes mellitus without complications; I10 Essential (primary) hypertension; E78.5 Hyperlipidemia, unspecified; K21.9 Gastro-esophageal reflux disease without esophagitis; J45.909 Unspecified asthma, uncomplicated; E03.9 Hypothyroidism, unspecified; M54.50 Low back pain, unspecified; F17.200 Nicotine dependence, unspecified, uncomplicated; Z90.89 Acquired absence of other organs; Z88.0 Allergy status to penicillin; Z88.2 Allergy status to sulfonamides; Z88.5 Allergy status to narcotic agent; Z91.040 Latex allergy status; Z79.811 Long term (current) use of aromatase inhibitors; Z79.52 Long term (current) use of systemic steroids; Z79.899 Other long term (current) drug therapy
CPT/HCPCS: 70450; 80048; 85025; 96374; 96375; 99284; J1100; J1200; J1885

== ENCOUNTER 2024-03-25 19:58 | Observation (INO) | payer MEDICAID, OTHER ==
[~2024-03-25] VITALS: Ht 160 cm; Wt 99.7 kg
[2024-03-25] MEDS: NS 1,000 ML IV ONE (20:10)
[2024-03-25 21:41] LABS: BASO % 0.2 % (0.0-1.0); EOS % 0.3 % (0.0-3.0); HEMATOCRIT 36.8 % (36.0-47.0); LYMPH # 1.8 10^3/uL (1.5-5.0); LYMPH % 13.3 % (24.0-44.0); MEAN CORPUSCULAR HEMOGLOBIN 28.5 pg (27.0-33.0); MEAN CORPUSCULAR HGB CONC 31.8 g/dl (32.0-36.5); MEAN CORPUSCULAR VOLUME 89.5 fl (80.0-96.0); NEUTROPHILS # 10.7 10^3/uL (1.5-8.5); NEUTROPHILS % 78.6 % (36.0-66.0); PLATELET COUNT, AUTOMATED 178 10^3/uL (150-450); RED BLOOD COUNT 4.11 10^6/uL (4.00-5.40); WHITE BLOOD COUNT 13.6 10^3/uL (4.0-10.0)
[2024-03-25 21:50] LABS: HEMOGLOBIN 11.7 g/dl (12.0-15.5)
[2024-03-25 21:58] LABS: ACETONE/KETONE 0.09 MMOL/L (0.02-0.27)
[2024-03-25 22:05] LABS: ALBUMIN 3.3 G/DL (3.2-5.2); BILIRUBIN,DIRECT 0.2 MG/DL (<0.4); BILIRUBIN,TOTAL 0.5 MG/DL (0.3-1.2); CALCIUM LEVEL 9.5 MG/DL (8.5-10.1); CREATININE FOR GFR 1.19 MG/DL (0.55-1.30); GLOMERULAR FILTRATION RATE 51.3 (>58); POTASSIUM SERUM 3.8 MMOL/L (3.5-5.1); TOTAL PROTEIN 6.4 G/DL (5.7-8.2)
[2024-03-25] MEDS ORDERED: ISOVUE-370 76% 100ML VIAL As Ordered ONE (22:12)
[2024-03-25 23:06] LABS: VENOUS BASE EXCESS -14.3 (-2.0-2.0); VENOUS HCO3 11.2 MMOL/L (23.0-27.0); VENOUS O2 SATURATION 81.4 % (60.0-80.0); VENOUS PARTIAL PRESSURE CO2 24.8 mmHg (38.0-50.0); VENOUS PARTIAL PRESSURE O2 51.8 mmHg (30.0-50.0); VENOUS PH 7.274 UNITS (7.330-7.430); VENOUS STANDARD HCO3 12.8 MMOL/L
[2024-03-26] VITALS (7 sets, daily range): BP systolic 80–126; BP diastolic 35–65; TEMP 97.9–102; O2SAT 90–98
[2024-03-26] MEDS: CEFEPIME HCL 2 GM in DEXTROSE 5% (D5W) ADV/MINI-BAG 50 ML IV ONE (00:16)
[2024-03-26] MEDS ORDERED: REGL10TA6 PO (01:22)
[2024-03-26] MEDS ORDERED: GLUCOSE 4 GM CHEW PO PRN (01:55)
[2024-03-26] MEDS ORDERED: DEXTROSE 50% 50ML SYRINGE IV PRN (01:55)
[2024-03-26] MEDS ORDERED: GLUCAGON INJ 1MG VIAL SC PRN (01:55)
[2024-03-26] MEDS: LR 1,000 ML IV SCH (02:49)
[2024-03-26] MEDS: ACETAMINOPHEN 325 MG TAB PO PRN (03:13)
[2024-03-26] MEDS: KETOROLAC 30 MG/ML 1ML VIAL IV ONE (04:08)
[2024-03-26 05:26] LABS: HEMATOCRIT 35.7 % (36.0-47.0); HEMOGLOBIN 11.5 g/dl (12.0-15.5); MEAN CORPUSCULAR HGB CONC 32.2 g/dl (32.0-36.5); MEAN CORPUSCULAR VOLUME 87.1 fl (80.0-96.0); PLATELET COUNT, AUTOMATED 248 10^3/uL (150-450); WHITE BLOOD COUNT 11.2 10^3/uL (4.0-10.0)
[2024-03-26 06:04] LABS: BILIRUBIN,TOTAL 0.3 MG/DL (0.3-1.2); CALCIUM LEVEL 8.8 MG/DL (8.5-10.1); CREATININE FOR GFR 1.16 MG/DL (0.55-1.30); GLOMERULAR FILTRATION RATE 52.9 (>58); MAGNESIUM LEVEL 2.1 MG/DL (1.8-2.4); POTASSIUM SERUM 3.5 MMOL/L (3.5-5.1); TOTAL PROTEIN 5.8 G/DL (5.7-8.2)
[2024-03-26] MEDS: METOCLOPRAMIDE INJ 10MG/2ML VIAL IV PRN (06:19)
[2024-03-26] MEDS: INSULIN LISPRO (NovoLOG) PER UNIT SC SCH (07:30)
[2024-03-26] MEDS: ENOXAPARIN 40MG/0.4ML SYRINGE (J1650 PER 10MG) SC SCH (08:30)
[2024-03-26] MEDS ORDERED: CEFEPIME HCL 1 GM in DEXTROSE 5% (D5W) ADV/MINI-BAG 50 ML IV SCH (11:45)
[2024-03-26] MEDS: MIDODRINE 5 MG TAB PO SCH (11:53)
[2024-03-26] MEDS: NS 1,000 ML IV ONE ×3 (11:57→21:10)
[2024-03-26 12:26] LABS: ABG O2 SATURATION 93.3 % (95.0-99.0); ABG PARTIAL PRESSURE CO2 30.5 mmHg (35.0-45.0); ABG PARTIAL PRESSURE O2 71.5 mmHg (75.0-100.0); ABG STANDARD HCO3 19.5 MMOL/L. (22.0-26.0); ABG TOTAL CO2 18.9 MMOL/L (22.0-29.0); ABG pH (ARTERIAL) 7.388 UNITS (7.350-7.450)
[2024-03-26] MEDS: CEFEPIME HCL 2 GM in DEXTROSE 5% (D5W) ADV/MINI-BAG 50 ML IV SCH (12:40)
[2024-03-26 12:52] LABS: BASO % 0.1 % (0.0-1.0); EOS % 0.1 % (0.0-3.0); HEMATOCRIT 33.1 % (36.0-47.0); HEMOGLOBIN 10.6 g/dl (12.0-15.5); LYMPH # 1.3 10^3/uL (1.5-5.0); LYMPH % 9.2 % (24.0-44.0); MEAN CORPUSCULAR HEMOGLOBIN 28.4 pg (27.0-33.0); MEAN CORPUSCULAR VOLUME 88.7 fl (80.0-96.0); MONO # 0.9 10^3/uL (0.0-0.8); MONO % 6.4 % (2.0-8.0); NEUTROPHILS # 12.1 10^3/uL (1.5-8.5); NEUTROPHILS % 83.6 % (36.0-66.0); PLATELET COUNT, AUTOMATED 233 10^3/uL (150-450); RED BLOOD COUNT 3.73 10^6/uL (4.00-5.40); WHITE BLOOD COUNT 14.5 10^3/uL (4.0-10.0)
[2024-03-26 13:11] LABS: C REACTIVE PROTEIN QUANTITATIV 9.8 MG/DL (<1.0)
[2024-03-26 13:12] LABS: CK-MB VALUE MASS 1.2 NG/ML (<3.6); MB/CK RELATIVE INDEX 0.63 (< OR =4)
[2024-03-26 13:24] LABS: PROCALCITONIN 2.97 ng/ml
[2024-03-26 13:27] LABS: ALBUMIN 2.5 G/DL (3.2-5.2); BILIRUBIN,TOTAL 0.4 MG/DL (0.3-1.2); CALCIUM LEVEL 7.7 MG/DL (8.5-10.1); CREATININE FOR GFR 1.19 MG/DL (0.55-1.30); GLOMERULAR FILTRATION RATE 51.3 (>58); POTASSIUM SERUM 3.6 MMOL/L (3.5-5.1); TOTAL PROTEIN 5.5 G/DL (5.7-8.2)
[2024-03-26] MEDS: metroNIDAZOLE 500 MG in IV 1 EA IV SCH (13:30)
[2024-03-26] MEDS ORDERED: NALOXONE INJ 0.4MG/1ML VIAL IV PRN (14:00)
[2024-03-26] MEDS ORDERED: VANCOMYCIN/WATER FOR INJ 1,000 MG in IV 1 EA IV SCH (14:00)
[2024-03-26] MEDS: HYDROMORPHONE HCL 0.5 MG/ 0.5 ML SYRINGE IV ONE (14:25)
[2024-03-26] MEDS: VANCOMYCIN 1,000 MG/200 ML IV BAG *LOAD IV ONE (14:40)
[2024-03-26] MEDS: ACETAMINOPHEN *IV* 1,000 MG in IV 1 EA IV ONE (16:41)
[2024-03-26] MEDS ORDERED: INSULIN LISPRO (NovoLOG) PER UNIT SC SCH (21:00)
[2024-03-26] MEDS: VANCOMYCIN 1,000MG/200 ML IV BAG IV SCH (22:58)
[2024-03-26] MEDS: NS 1,000 ML IV SCH (22:58)
[2024-03-26] MEDS: IPRATROPIUM 0.5MG/ALBUTEROL 2.5MG INH SOL UD 3ML (DUONEB) NEB ONE (23:45)
[2024-03-27] VITALS (7 sets, daily range): BP systolic 118–165; BP diastolic 60–97; TEMP 97.7–98.8; O2SAT 84–96
[2024-03-27] MEDS: INSULIN LISPRO (NovoLOG) PER UNIT SC SCH ×3 (01:04→21:16)
[2024-03-27] MEDS: KETOROLAC 30 MG/ML 1ML VIAL IV ONE ×2 (01:05→22:24)
[2024-03-27 07:22] LABS: BASO % 0.2 % (0.0-1.0); EOS # 0.2 10^3/uL (0.0-0.5); EOS % 1.6 % (0.0-3.0); HEMATOCRIT 35.1 % (36.0-47.0); LYMPH # 1.9 10^3/uL (1.5-5.0); LYMPH % 17.5 % (24.0-44.0); MEAN CORPUSCULAR HEMOGLOBIN 28.7 pg (27.0-33.0); MEAN CORPUSCULAR HGB CONC 31.3 g/dl (32.0-36.5); MEAN CORPUSCULAR VOLUME 91.6 fl (80.0-96.0); MONO # 0.6 10^3/uL (0.0-0.8); MONO % 5.8 % (2.0-8.0); NEUTROPHILS # 7.9 10^3/uL (1.5-8.5); NEUTROPHILS % 74.6 % (36.0-66.0); PLATELET COUNT, AUTOMATED 219 10^3/uL (150-450); RED BLOOD COUNT 3.83 10^6/uL (4.00-5.40); WHITE BLOOD COUNT 10.6 10^3/uL (4.0-10.0)
[2024-03-27] MEDS ORDERED: PANT20TA6 PO (07:35)
[2024-03-27] MEDS ORDERED: LISI10TA22 PO (07:35)
[2024-03-27] MEDS ORDERED: CETI10TA PO (07:38)
[2024-03-27] MEDS ORDERED: LANTINJ4 SC (07:38)
[2024-03-27] MEDS ORDERED: DULO1CAP5 PO (07:38)
[2024-03-27] MEDS ORDERED: GLYC1TAB18 PO (07:38)
[2024-03-27] MEDS ORDERED: ATOR80TA59 PO (07:38)
[2024-03-27] MEDS ORDERED: CARV12.5 PO (07:38)
[2024-03-27] MEDS ORDERED: PARO10TA3 PO (07:38)
[2024-03-27] MEDS ORDERED: HOME MED LIST COMPLETE! XX SCH (07:40)
[2024-03-27 07:51] LABS: BLOOD UREA NITROGEN 22 MG/DL (9-23); CALCIUM LEVEL 8.1 MG/DL (8.5-10.1); CARBON DIOXIDE LEVEL 23 MMOL/L (20-31); CHLORIDE LEVEL 113 MMOL/L (98-107); GLOMERULAR FILTRATION RATE > 60.0 (>58); GLUCOSE, FASTING 206 MG/DL (60-100); POTASSIUM SERUM 3.7 MMOL/L (3.5-5.1); SODIUM LEVEL 143 MMOL/L (136-145)
[2024-03-27] MEDS: BISACODYL 10MG SUPP PR ONE (09:00)
[2024-03-27] MEDS ORDERED: ENOXAPARIN 100MG/1ML SYRINGE (J1650 PER 10MG) SC SCH (09:00)
[2024-03-27 09:32] LABS: CLOSTRIDIUM DIFFICILE PCR NEGATIVE (NEGATIVE)
[2024-03-27] MEDS ORDERED: IPRATROPIUM 0.02% SOLN 0.5MG 2.5ML NEB NEB ONE (12:05)
[2024-03-27 13:27] LABS: PROCALCITONIN 0.92 ng/ml
[2024-03-27 13:28] LABS: ALBUMIN 2.5 G/DL (3.2-5.2); BILIRUBIN,DIRECT 0.2 MG/DL (<0.4); BILIRUBIN,TOTAL 0.4 MG/DL (0.3-1.2); CK-MB VALUE MASS 2.3 NG/ML (<3.6); MB/CK RELATIVE INDEX 1.07 (< OR =4); TOTAL PROTEIN 6.1 G/DL (5.7-8.2)
[2024-03-27] MEDS: GLYCERIN ADULT SUPP PR ONE (13:35)
[2024-03-27] MEDS: ENOXAPARIN 60MG/0.6ML SYRINGE (J1650 PER 10MG) SC ONE (14:51)
[2024-03-28] VITALS (7 sets, daily range): BP systolic 162–179; BP diastolic 90–95; TEMP 97.2–97.6; O2SAT 94–95
[2024-03-28] MEDS: ENOXAPARIN 100MG/1ML SYRINGE (J1650 PER 10MG) SC SCH (01:04)
[2024-03-28] MEDS ORDERED: KETOROLAC 30 MG/ML 1ML VIAL IV ONE (06:00)
[2024-03-28] MEDS: IBUPROFEN 400MG TAB PO ONE (06:08)
[2024-03-28 08:06] LABS: BASO % 0.3 % (0.0-1.0); EOS # 0.2 10^3/uL (0.0-0.5); EOS % 1.9 % (0.0-3.0); HEMATOCRIT 37.2 % (36.0-47.0); HEMOGLOBIN 11.7 g/dl (12.0-15.5); LYMPH # 1.3 10^3/uL (1.5-5.0); MEAN CORPUSCULAR HEMOGLOBIN 28.1 pg (27.0-33.0); MEAN CORPUSCULAR HGB CONC 31.5 g/dl (32.0-36.5); MEAN CORPUSCULAR VOLUME 89.4 fl (80.0-96.0); MONO # 0.5 10^3/uL (0.0-0.8); MONO % 5.9 % (2.0-8.0); NEUTROPHILS # 6.9 10^3/uL (1.5-8.5); NEUTROPHILS % 77.5 % (36.0-66.0); PLATELET COUNT, AUTOMATED 181 10^3/uL (150-450); RED BLOOD COUNT 4.16 10^6/uL (4.00-5.40)
[2024-03-28 08:28] LABS: BLOOD UREA NITROGEN 12 MG/DL (9-23); CARBON DIOXIDE LEVEL 21 MMOL/L (20-31); CHLORIDE LEVEL 104 MMOL/L (98-107); CREATININE FOR GFR 0.61 MG/DL (0.55-1.30); GLOMERULAR FILTRATION RATE > 60.0 (>58); GLUCOSE, FASTING 274 MG/DL (60-100); POTASSIUM SERUM 3.3 MMOL/L (3.5-5.1); SODIUM LEVEL 138 MMOL/L (136-145)
[2024-03-28] MEDS: VANCOMYCIN 1,000MG/200 ML IV BAG IV SCH (08:55)
[2024-03-28] MEDS: PARoxetine 10MG TABLET PO SCH (10:31)
[2024-03-28] MEDS: DULoxetine 30MG CAPSULE (CYMBALTA) PO SCH (10:31)
[2024-03-28] MEDS: POTASSIUM CHLORIDE 10MEQ SR TABLET PO ONE (10:32)
[2024-03-28] MEDS: CETIRIZINE (ZyrTEC) 10 MG TAB PO SCH (10:32)
[2024-03-28] MEDS: COLCHICINE 0.6 MG TABLET PO SCH (10:32)
[2024-03-28] MEDS: CARVedilol 12.5 MG TAB PO SCH (10:33)
[2024-03-28] MEDS: ATORVASTATIN 20 MG TAB PO SCH (10:33)
[2024-03-28] MEDS: LEVOTHYROXINE 125MCG TABLET (0.125MG) PO SCH (10:34)
[2024-03-28] MEDS: PANTOPRAZOLE 20 MG TAB PO SCH (10:34)
[2024-03-28] MEDS: MAGNESIUM CITRATE 300ML BTL PO ONE (10:34)
[2024-03-28] MEDS: LEVEMIR (INSULIN DETEMIR) 1 UNITS/0.01ML SC ONE (10:35)
[2024-03-28] MEDS: CEFDINIR 300 MG CAP (OMNICEF) PO SCH (12:17)
[2024-03-28] MEDS: metroNIDAZOLE (FLAGYL) 500MG TABLET PO SCH (14:07)
[2024-03-28] MEDS: MOM 30ML SUSPENSION UDC PO PRN (14:08)
[2024-03-28] MEDS: LACTULOSE 20GM/30ML SYRUP UDC PO ONE (15:51)
[2024-03-28] MEDS: amLODIPine 5 MG TAB PO ONE (15:51)
[2024-03-28] MEDS: cloNIDine 0.1MG TABLET PO ONE (15:52)
[2024-03-28] MEDS ORDERED: CEFD1CAP9 PO (16:33)
[2024-03-28] MEDS ORDERED: METR-265 PO (16:33)
[2024-03-28] MEDS: atenoloL 25 MG TAB PO ONE (16:53)
[2024-03-28] MEDS: POLYETHYLENE GLYCOL (MIRALAX) 238GM BOTTLE PO ONE (16:53)
== END 2024-03-28 17:36 | disposition left against medical advice (07) ==
LOC: M ED 19:58 → EDBD 19:58 → M ED INP 19:59 → M MSPAV 03-26 02:43 → M PCU 03-26 12:18 → M MSPAV 03-27 14:12
PROVIDERS: ADMIT Internal Medicine; ATTEND General Practice
DX: K31.84 Gastroparesis (principal); K52.9 Noninfective gastroenteritis and colitis, unspecified; Z53.21 Procedure and treatment not carried out due to patient leaving prior to being seen by health care provider; Z91.198 Patient's noncompliance with other medical treatment and regimen for other reason; I95.2 Hypotension due to drugs; A41.9 Sepsis, unspecified organism; E11.65 Type 2 diabetes mellitus with hyperglycemia; I16.0 Hypertensive urgency; R15.9 Full incontinence of feces; F17.218 Nicotine dependence, cigarettes, with other nicotine-induced disorders; J44.9 Chronic obstructive pulmonary disease, unspecified; E66.9 Obesity, unspecified; I10 Essential (primary) hypertension; E03.9 Hypothyroidism, unspecified; D50.9 Iron deficiency anemia, unspecified; K21.9 Gastro-esophageal reflux disease without esophagitis; F41.9 Anxiety disorder, unspecified; N39.0 Urinary tract infection, site not specified; Z79.4 Long term (current) use of insulin; Z79.899 Other long term (current) drug therapy; Z88.2 Allergy status to sulfonamides; Z88.5 Allergy status to narcotic agent; Z91.040 Latex allergy status
CPT/HCPCS: 36415; 36600; 71045; 71046; 71250; 74018; 74177; 78264; 80048; 80053; 80076; 80202; 81001; 82010; 82150; 82550; 82553; 82803; 83605; 83690; 83735; 83880; 84145; 84484; 85025; 85027; 85652; 86140; 87040; 87324; 87486; 87581; 87633; 87641; 87798; 92610; 93005; 93041; 94640; 96361; 96365; 96366; 96367; 96372; 96375; 96376; 99285; A9541; J0131; J0692; J1171; J1650; J1815; J1836; J1885; J2765; J3372; Q9967

== ENCOUNTER → 2024-05-16 | Outpatient (CLI) | payer OTHER ==
[~2024-05-16] MED LIST changes: +ATOR80TA59 PO; +CARV12.5 PO; +CEFD1CAP9 PO; +CETI10TA PO; +DILT0.05 PO; +DULO1CAP5 PO; +GLYC1TAB18 PO; +INSU100I24; +LANTINJ4 SC; +LISI10TA22 PO; +METR-265 PO; +NITR0.4S14; +PANT20TA6 PO; +PARO10TA3 PO; +REGL10TA6 PO; +SENN-186 PO
== END ==
LOC: EEVIPCON 04-17 09:00 → M CARPUL 09:08
PROVIDERS: ATTEND Registered Nurse
DX: I08.0 Rheumatic disorders of both mitral and aortic valves (principal); I50.30 Unspecified diastolic (congestive) heart failure; I37.1 Nonrheumatic pulmonary valve insufficiency

== ENCOUNTER 2024-06-02 07:06 | Day surgery (SDC) | payer OTHER ==
[~2024-06-02] VITALS: Ht 160 cm; Wt 99.3 kg
[~2024-06-02 07:06] MED LIST changes: +LR 1,000 ML IV SCH; +MIDAZOLAM INJ 2MG/2ML VIAL As Ordered ONE; +fentaNYL 100 MCG/2 ML INJECTION As Ordered ONE
[2024-06-02] MEDS: TETRACAINE 0.5% OPHTH SOLN 4ML OS SCH (07:44)
[2024-06-02] MEDS: PHENYLEPHRINE 2.5% OPHTH SOL 2ML OS SCH (07:44)
[2024-06-02] MEDS: CYCLOPENTOLATE 1% OPHTH SOLN 2ML BTL OS SCH (07:44)
[2024-06-02] MEDS: FLURBIPROFEN 0.03% OPHTH SOLN 2.5 ML OS SCH (07:44)
[2024-06-02] MEDS ORDERED: DEXTROSE 50% 50ML SYRINGE IV PRN (07:55)
[2024-06-02] MEDS ORDERED: GLUCOSE 4 GM CHEW PO PRN (07:55)
[2024-06-02] MEDS ORDERED: GLUCAGON INJ 1MG VIAL SC PRN (07:55)
[2024-06-02] MEDS: INSULIN LISPRO (NovoLOG) PER UNIT SC PRN (08:05)
[2024-06-02] MEDS: CEFUROXIME 1MG/0.1ML INTRACAMERAL INJ As Ordered ONE (09:00)
[2024-06-02] MEDS: LIDOCAINE 1% SDV 5ML VIAL As Ordered ONE (09:00)
[2024-06-02 09:17] VITALS: BP 130/62; TEMP 97.2; O2SAT 96
== END 2024-06-02 09:28 | disposition home or self-care (01) ==
LOC: M SDC 07:06
PROVIDERS: ATTEND Ophthalmology
DX: E10.36 Type 1 diabetes mellitus with diabetic cataract (principal); H25.12 Age-related nuclear cataract, left eye; I10 Essential (primary) hypertension; J44.89 Other specified chronic obstructive pulmonary disease; E78.00 Pure hypercholesterolemia, unspecified; E10.51 Type 1 diabetes mellitus with diabetic peripheral angiopathy without gangrene; E03.9 Hypothyroidism, unspecified; N39.3 Stress incontinence (female) (male); Z79.4 Long term (current) use of insulin; Z79.890 Hormone replacement therapy; Z79.899 Other long term (current) drug therapy; K21.9 Gastro-esophageal reflux disease without esophagitis; Z86.718 Personal history of other venous thrombosis and embolism; Z90.710 Acquired absence of both cervix and uterus; M10.9 Gout, unspecified; F17.210 Nicotine dependence, cigarettes, uncomplicated; Z88.5 Allergy status to narcotic agent; Z88.0 Allergy status to penicillin; Z88.2 Allergy status to sulfonamides; Z88.8 Allergy status to other drugs, medicaments and biological substances; Z90.49 Acquired absence of other specified parts of digestive tract; Z91.040 Latex allergy status
CPT/HCPCS: 66984; J2250; J3010; V2632

== ENCOUNTER 2024-06-09 06:49 | Day surgery (SDC) | payer OTHER ==
[~2024-06-09] VITALS: Ht 160 cm; Wt 100.7 kg
[~2024-06-09 06:49] MED LIST changes: -LR 1,000 ML IV SCH; -MIDAZOLAM INJ 2MG/2ML VIAL As Ordered ONE; -fentaNYL 100 MCG/2 ML INJECTION As Ordered ONE
[2024-06-09] MEDS ORDERED: LR 1,000 ML IV SCH (07:00)
[2024-06-09] MEDS: CYCLOPENTOLATE 1% OPHTH SOLN 2ML BTL OD SCH (07:22)
[2024-06-09] MEDS: PHENYLEPHRINE 2.5% OPHTH SOL 2ML OD SCH (07:22)
[2024-06-09] MEDS: TETRACAINE 0.5% OPHTH SOLN 4ML OD SCH (07:23)
[2024-06-09] MEDS: FLURBIPROFEN 0.03% OPHTH SOLN 2.5 ML OD SCH (07:23)
[2024-06-09] MEDS ORDERED: GLUCAGON INJ 1MG VIAL SC PRN (07:35)
[2024-06-09] MEDS ORDERED: DEXTROSE 50% 50ML SYRINGE IV PRN (07:35)
[2024-06-09] MEDS ORDERED: GLUCOSE 4 GM CHEW PO PRN (07:35)
[2024-06-09] MEDS: INSULIN LISPRO (NovoLOG) PER UNIT SC PRN (07:43)
[2024-06-09] MEDS ORDERED: fentaNYL 100 MCG/2 ML INJECTION As Ordered ONE (08:20)
[2024-06-09] MEDS ORDERED: MIDAZOLAM INJ 2MG/2ML VIAL As Ordered ONE (08:20)
[2024-06-09] MEDS: LIDOCAINE 1% SDV 5ML VIAL As Ordered ONE (08:36)
[2024-06-09] MEDS: CEFUROXIME 1MG/0.1ML INTRACAMERAL INJ As Ordered ONE (08:37)
[2024-06-09] MEDS ORDERED: PROVISC 10 MG/ML 0.85ML SYRINGE As Ordered ONE (08:44)
[2024-06-09 10:08] VITALS: BP 104/51; TEMP 97.3; O2SAT 97
== END 2024-06-09 09:23 | disposition home or self-care (01) ==
LOC: M SDC 06:49
PROVIDERS: ATTEND Ophthalmology
DX: E10.36 Type 1 diabetes mellitus with diabetic cataract (principal); H25.811 Combined forms of age-related cataract, right eye; I10 Essential (primary) hypertension; J44.89 Other specified chronic obstructive pulmonary disease; E03.9 Hypothyroidism, unspecified; E78.00 Pure hypercholesterolemia, unspecified; N39.3 Stress incontinence (female) (male); K21.9 Gastro-esophageal reflux disease without esophagitis; Z86.718 Personal history of other venous thrombosis and embolism; Z79.899 Other long term (current) drug therapy; Z79.4 Long term (current) use of insulin; Z79.890 Hormone replacement therapy; M10.9 Gout, unspecified; F17.210 Nicotine dependence, cigarettes, uncomplicated; Z90.710 Acquired absence of both cervix and uterus; Z90.49 Acquired absence of other specified parts of digestive tract; Z88.5 Allergy status to narcotic agent; Z88.2 Allergy status to sulfonamides; Z88.0 Allergy status to penicillin
CPT/HCPCS: 66984; J0697; J2250; J3010; V2632

== ENCOUNTER → 2024-08-26 | Outpatient (CLI) | payer OTHER ==
[~2024-08-26] MED LIST changes: +CARI-555 PO; -CARI1TAB7 PO
== END ==
LOC: M WHC 12:25
PROVIDERS: ATTEND Student in an Organized Health Care Education/Training Program
DX: Z12.31 Encounter for screening mammogram for malignant neoplasm of breast (principal)

== ENCOUNTER → 2025-03-17 | Outpatient (REF) | payer OTHER ==
[~2025-03-17] MED LIST changes: -COLC0.6T47 PO; +COLC0.6T53 PO; +LIDO1ADH93 TD; -LIDO5DIS41 TD
== END ==
LOC: M SFHCADAM 15:10
PROVIDERS: ATTEND Physician Assistant
DX: R19.7 Diarrhea, unspecified (principal)

== ENCOUNTER → 2025-03-20 | Outpatient (CLI) | payer OTHER ==
[2025-03-20 17:05] LABS: C REACTIVE PROTEIN QUANTITATIV 2.62 MG/DL (<1.0)
[2025-03-20 17:06] LABS: ALT/SGPT 17 U/L (7.0-40); AST/SGOT 18 U/L (<34); CALCIUM LEVEL 9.1 MG/DL (8.5-10.1); CARBON DIOXIDE LEVEL 29 MMOL/L (20-31); CHLORIDE LEVEL 103 MMOL/L (98-107); CREATININE FOR GFR 0.78 MG/DL (0.55-1.30); GLOMERULAR FILTRATION RATE > 90.0 (>51); POTASSIUM SERUM 4.1 MMOL/L (3.5-5.1); SODIUM LEVEL 140 MMOL/L (136-145)
[2025-03-20 17:09] LABS: PLATELET COUNT, AUTOMATED 196 10^3/uL (150-450)
[2025-03-26 08:30] LABS: IRON (FE) 44 UG/DL (50-170)
== END ==
LOC: M PLALAB 14:54
PROVIDERS: ATTEND Physician Assistant Medical
DX: R19.7 Diarrhea, unspecified (principal)

== ENCOUNTER → 2025-03-30 | Outpatient (REF) | payer OTHER | LOC: M SFHCPLAZ 09:59 | PROVIDERS: ATTEND Physician Assistant Medical | DX: R19.7 Diarrhea, unspecified (principal) ==

== ENCOUNTER → 2025-04-03 | Outpatient (CLI) | payer OTHER ==
[2025-04-08 14:46] LABS: Antimyeloperxidase(MPO) Abs < 1.0 AI (<1.0)
[2025-04-10 18:17] LABS: ANCA SCREEN REFLEX Negative (Negative)
== END ==
LOC: M PLALAB 11:53
PROVIDERS: ATTEND Physician Assistant Medical
DX: R19.7 Diarrhea, unspecified (principal); D50.9 Iron deficiency anemia, unspecified; R10.9 Unspecified abdominal pain; Z95.828 Presence of other vascular implants and grafts

== ENCOUNTER → 2025-04-07 | Outpatient (REF) | payer OTHER | LOC: M SFHCPLAZ 11:22 | PROVIDERS: ATTEND Family Medicine | DX: Z53.9 Procedure and treatment not carried out, unspecified reason (principal) ==

== ENCOUNTER → 2025-04-21 | Outpatient (REF) | payer OTHER | LOC: M SFHCPLAZ 07:43 | PROVIDERS: ATTEND Family Medicine | DX: Z53.9 Procedure and treatment not carried out, unspecified reason (principal) ==

== ENCOUNTER → 2025-04-21 | Outpatient (CLI) | payer OTHER | LOC: M WHC 06:45 | PROVIDERS: ATTEND Physician Assistant Medical | DX: R10.9 Unspecified abdominal pain (principal); R19.7 Diarrhea, unspecified ==

== ENCOUNTER → 2025-04-21 | Outpatient (CLI) | payer OTHER ==
[2025-04-21 12:20] LABS: PLATELET COUNT, AUTOMATED 145 10^3/uL (150-450)
[2025-04-21 12:59] LABS: FREE T4 1.08 NG/DL (0.89-1.76)
[2025-04-21 13:08] LABS: ALT/SGPT 15.0 U/L (7.0-40); AST/SGOT 18.0 U/L (<34); CALCIUM LEVEL 9.0 MG/DL (8.5-10.1); CARBON DIOXIDE LEVEL 28.0 MMOL/L (20-31); CHLORIDE LEVEL 105.0 MMOL/L (98-107); CHOLESTEROL LEVEL 129.0 MG/DL (<200); CHOLESTEROL RISK RATIO 3.98 (<5); CREATININE FOR GFR 0.83 MG/DL (0.55-1.30); GLOMERULAR FILTRATION RATE 85.8 (>51); LDL CHOLESTEROL 62.8 MG/DL (<100); NON-HDL-C 96.6 MG/DL; POTASSIUM SERUM 3.9 MMOL/L (3.5-5.1); SODIUM LEVEL 141.0 MMOL/L (136-145); TRIGLYCERIDES LEVEL 169.0 MG/DL (<150)
== END ==
LOC: M PLALAB 07:42
PROVIDERS: ATTEND Family Medicine
DX: I10 Essential (primary) hypertension (principal); E10.8 Type 1 diabetes mellitus with unspecified complications; E78.2 Mixed hyperlipidemia

== ENCOUNTER → 2025-04-23 | Outpatient (REF) | payer OTHER | LOC: M SFHCPLAZ 07:52 | PROVIDERS: ATTEND Family Medicine | DX: D64.9 Anemia, unspecified (principal); E03.9 Hypothyroidism, unspecified ==